=== PATIENT | female | born 1965 | race African-American/Black ===

== ENCOUNTER 2019-01-03 00:58 | Emergency (ER) | payer SELFPAY ==
[2019-01-03 02:09] LABS: Absolute Lymphocytes (CBC) 2.4 K/uL (0.7-4.9); Basophils % 0.8 % (0-1.3); Eosinophils % 0.1 % (0-4.4); Hematocrit 38.6 % (36.0-45.0); Lymphocytes % 21.9 % (15.3-44.8); Monocytes % 4.9 % (3.3-12.3); RBC Red Blood Cell Count 4.48 M/uL (3.86-4.86)
[2019-01-03 02:21] LABS: Albumin 3.7 g/dL (3.4-5.0); Bilirubin Direct 0.2 mg/dL (0-0.2); Bilirubin Total 0.6 mg/dL (0.2-1.0); Potassium 3.8 mmol/L (3.5-5.1); Protein, Total 8.6 g/dL (6.4-8.2)
[2019-01-03] MEDS ORDERED: ONDANSETRON 4 MG/2 ML VIAL ONE (02:53)
--- NOTE | 2019-01-03 05:31 | EDPHYS ---
Physician Documentation [facility] Name: Ning Kirk Age: 53 yrs Sex: Female : 1965 Arrival Date: 01/03/2019 Time: 01:00 Bed 13 Private MD: ED Physician Shoaib Berman AMBULANCE DRIVER PARAMEDIC: 01/03 01:27 LMP N/A - Post-menopause ak1 Historical: - Allergies: 01:27 tramadol; ak1 - Home Meds: 01:27 metformin 1,000 mg Oral tr24 1 tab once daily for Prevention of Type 2 Diabetes ak1 Mellitus [Active]; - PMHx: 01:27 Diabetes - NIDDM; ak1 - PSHx: 01:27 None; ak1 - Immunization history:: Adult Immunizations unknown. - Social history:: Smoking status: Patient/guardian denies using tobacco. - Ebola Screening: : No symptoms or risks identified at this time. Vital Signs: 01:26 BP 158 / 89; Pulse 69; Resp 18; Pulse Ox 100% ; ea 01:27 Weight 99.79 kg (R); Height 5 ft. 2 in. (157.48 cm) (R); Pain 0/10; ak1 03:45 BP 138 / 67; Pulse 64; Resp 18; Pulse Ox 98% ; ea 04:00 BP 130 / 68; Pulse 63; Resp 18; Pulse Ox 100% ; ea 05:00 BP 124 / 64; Pulse 61; Resp 18; Pulse Ox 98% on R/A; ea 05:35 BP 120 / 62; Pulse 60; Resp 18; Temp 97.2; Pulse Ox 98% ; ea 01:27 Body Mass Index 40.24 (99.79 kg, 157.48 cm) ak1 MDM: 01:38 Patient medically screened. 01/03 01:41 Order name: Basic Metabolic Panel 01/03 01:41 Order name: CBC with Diff; Complete Time: 02:53 01/03 01:41 Order name: Hepatic Function; Complete Time: 02:53 gs 01/03 01:41 Order name: Lipase; Complete Time: 02:53 01/03 01:42 Order name: Basic Metabolic Panel; Complete Time: 02:53 EDMS 01/03 01:41 Order name: IV Saline Lock; Complete Time: 01:54 gs 01/03 01:41 Order name: Labs collected and sent; Complete Time: 02:08 01/03 01:41 Order name: CT Stone Protocol Administered Medications: 01:50 Drug: NS 0.9% 1000 ml Route: IV; Rate: 1 bolus; Site: left antecubital; cc3 05:30 Follow up: Response: No adverse reaction; IV Status: Completed infusion; IV Intake: ea 1000ml 01:50 Drug: Zofran 4 mg Route: IVP; Site: left antecubital; ea 02:33 Follow up: Response: No adverse reaction; Nausea is decreased ea 02:42 Drug: Zofran 4 mg Route: IVP; Site: left antecubital; ea 03:45 Follow up: Response: No adverse reaction; Nausea is decreased ea 05:45 Drug: Phenergan 25 mg Route: IM; Site: right deltoid; ea 05:49 Follow up: Response: No adverse reaction; Medication administered at discharge. ea Disposition: 01/03/19 05:30 Discharged to Home. Impression: Vomiting, Dehydration. - Condition is Stable. - Discharge Instructions: Dehydration, Adult, Nausea and Vomiting, Adult. - Prescriptions for Zofran 4 mg Oral Tablet - take 1 tablet by ORAL route every 12 hours As needed; 10 tablet. - Medication Reconciliation Form, Thank You Letter, Antibiotic Education, Prescription Opioid Use form. - Follow up: Private Physician; When: 2 - 3 days; Reason: Re-evaluation by your physician. Signatures: Dispatcher [employer] EDMS Cony Marie RN RN ak1 Michelle Jacobson RN RN ea Starr, Gregory, MD MD gs Cordel, Charlene cc3 Corrections: (The following items were deleted from the chart) 05:57 05:30 01/03/2019 05:30 Discharged to Home. Impression: Vomiting; Dehydration. Condition ea is Stable. Forms are Medication Reconciliation Form, Thank You Letter, Antibiotic Education, Prescription Opioid Use. Follow up: Private Physician; When: 2 - 3 days; Reason: Re-evaluation by your physician.
--- NOTE | 2019-01-03 05:31 | ER ---
Nurse's Notes [facility] Name: Ning Kirk Age: 53 yrs Sex: Female : 1965 Arrival Date: 01/03/2019 Time: 01:00 Bed 13 Private MD: Diagnosis: Vomiting;Dehydration Presentation: 01/03 01:25 Presenting complaint: Patient states: vomiting X3 days. pt denies diarrhea. pt daughter ak1 stated pt has not been taking her metformin for "a while". Transition of care: patient was not received from another setting of care. Onset of symptoms is unknown. Risk Assessment: Do you want to hurt yourself or someone else? Patient reports no desire to harm self or others. Care prior to arrival: None. 01:25 Acuity: HERACLIO 3 ak1 01:25 Method Of Arrival: Ambulatory ak1 01:36 Initial Sepsis Screen: Does the patient meet any 2 criteria? No. Patient's initial ea sepsis screen is negative. Does the patient have a suspected source of infection? No. Patient's initial sepsis screen is negative. 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 - Social history:: Smoking status: Patient/guardian denies using tobacco. - Ebola Screening: : No symptoms or risks identified at this time. Screenin:27 Abuse screen: Denies threats or abuse. Denies injuries from another. Nutritional ak1 screening: No deficits noted. Tuberculosis screening: No symptoms or risk factors identified. Fall Risk None identified. Assessment: 01:25 General: Appears uncomfortable, Behavior is calm, cooperative, appropriate for age. ea Pain: Denies pain. Neuro: Level of Consciousness is awake, alert, obeys commands, Oriented to person, place, time, situation. Cardiovascular: Patient's skin is warm and dry. Respiratory: Airway is patent Respiratory effort is even, unlabored, Respiratory pattern is regular, symmetrical. GI: Abdomen is non-distended, Reports nausea, vomiting. Derm: Skin is pink, warm \\T\\ dry. 02:00 Reassessment: Patient and/or family updated on plan of care and expected duration. Pain ea level reassessed. Patient is alert, oriented x 3, equal unlabored respirations, skin warm/dry/pink. 03:00 Reassessment: Patient and/or family updated on plan of care and expected duration. Pain ea level reassessed. Patient is alert, oriented x 3, equal unlabored respirations, skin warm/dry/pink. 04:00 Reassessment: Patient and/or family updated on plan of care and expected duration. Pain ea level reassessed. Patient is alert, oriented x 3, equal unlabored respirations, skin warm/dry/pink. Patient states symptoms have improved. 05:14 Reassessment: Patient and/or family updated on plan of care and expected duration. Pain ea level reassessed. Patient is alert, oriented x 3, equal unlabored respirations, skin warm/dry/pink. Patient states feeling better. Patient states symptoms have improved. Vital Signs: 01:26 BP 158 / 89; Pulse 69; Resp 18; Pulse Ox 100% ; ea 01:27 Weight 99.79 kg (R); Height 5 ft. 2 in. (157.48 cm) (R); Pain 0/10; ak1 03:45 BP 138 / 67; Pulse 64; Resp 18; Pulse Ox 98% ; ea 04:00 BP 130 / 68; Pulse 63; Resp 18; Pulse Ox 100% ; ea 05:00 BP 124 / 64; Pulse 61; Resp 18; Pulse Ox 98% on R/A; ea 05:35 BP 120 / 62; Pulse 60; Resp 18; Temp 97.2; Pulse Ox 98% ; ea 01:27 Body Mass Index 40.24 (99.79 kg, 157.48 cm) ak1 ED Course: 01:00 Patient arrived in ED. am2 01:18 Michelle Jacobson, MARIOLA is Primary Nurse. ea 01:25 Shoaib Berman MD is Attending Physician. gs 01:26 Triage completed. ak1 01:27 Arm band placed on Patient placed in an exam room, on a stretcher, on pulse oximetry, ak1 Patient notified of wait time. 01:27 Patient has correct armband on for positive identification. Bed in low position. Call ak1 light in reach. Side rails up X 1. Adult w/ patient. Pulse ox on. NIBP on. 01:50 Inserted saline lock: 20 gauge in left antecubital area, using aseptic technique. Blood cc3 collected. 02:19 CT Stone Protocol In Process Unspecified. EDMS 05:47 No provider procedures requiring assistance completed. IV discontinued, intact, ea bleeding controlled, No redness/swelling at site. Pressure dressing applied. Administered Medications: 01:50 Drug: NS 0.9% 1000 ml Route: IV; Rate: 1 bolus; Site: left antecubital; cc3 05:30 Follow up: Response: No adverse reaction; IV Status: Completed infusion; IV Intake: ea 1000ml 01:50 Drug: Zofran 4 mg Route: IVP; Site: left antecubital; ea 02:33 Follow up: Response: No adverse reaction; Nausea is decreased ea 02:42 Drug: Zofran 4 mg Route: IVP; Site: left antecubital; ea 03:45 Follow up: Response: No adverse reaction; Nausea is decreased ea 05:45 Drug: Phenergan 25 mg Route: IM; Site: right deltoid; ea 05:49 Follow up: Response: No adverse reaction; Medication administered at discharge. ea Intake: 05:30 IV: 1000ml; Total: 1000ml. ea Outcome: 05:30 Discharge ordered by . 05:50 Discharged to home ambulatory, with family. ea 05:50 Condition: improved 05:50 Discharge instructions given to patient, Instructed on discharge instructions, follow up and referral plans. medication usage, Demonstrated understanding of instructions, follow-up care, medications, Prescriptions given X 1. 05:57 Patient left the ED. ea Signatures: Dispatcher [employer] EDCA Cony Marie RN RN [email or web address] Ria Alva Elena, RN RN ea Starr, Gregory, MD MD gs Cordel, Charlene cc3
[2019-01-03] MEDS ORDERED: PROMETHAZINE 25 MG/ML VIAL ONE (05:53)
--- NOTE | 2019-01-03 10:05 | RAD REPORT ---
EXAM DESCRIPTION: CT - Stone Protocol - 01/03/2019 2:35 am CLINICAL HISTORY: ABD PAIN COMPARISON: None. TECHNIQUE: CT ABDOMEN PELVIS WITHOUT IV CONTRAST on 01/03/2019 1:41 AM CDT This exam was performed according to our departmental dose-optimization program, which includes autom ated exposure control, adjustment of the mA and/or kV according to patient size and/or use of iterati ve reconstruction technique. FINDINGS: Lower lungs are clear. Abdomen: The liver is normal in appearance. There is no biliary dilatation. Gallbladder contains mult iple gallstones. The pancreas and spleen are normal in appearance. Adrenal glands are normal. Left ki dney contains several small simple cysts, in addition to a simple cyst in the lower pole of the right kidney. There is a punctate mid pole right renal calculus in the second punctate upper pole right re nal calculus. There is no hydronephrosis bilaterally. Abdominal aorta is normal in course and caliber without aneurysm. There is no free air. There is no r etroperitoneal adenopathy.There is a small fat-containing umbilical abdominal wall hernia. There is a small supraumbilical anterior abdominal wall hernia as well. Pelvis: There is no bowel obstruction. Urinary bladder is unremarkable. There is no free fluid. Uteru s is enlarged. There is a left ovarian cyst measuring 5.9 cm. Appendix is normal. Skeleton: There are no acute osseous findings. No suspicious bony lesions. IMPRESSION: Large left ovarian cyst. Recommend nonemergent ultrasound. Cholelithiasis and right nephrolithiasis. No acute inflammatory process. Electronically signed by: José Miguel Weldon MD 01/03/2019 2:29 AM CDT Due to temporary technical issues with the PACS/Fluency reporting system, reports are being signed by the in house radiologist as a courtesy to ensure prompt reporting. The interpreting radiologist is f ully responsible for the content of the report.
== END 2019-01-03 05:57 | disposition home or self-care (01) ==
LOC: ER 00:58
DX: R11.10 Vomiting, unspecified (principal); E86.0 Dehydration; E11.9 Type 2 diabetes mellitus without complications; Z79.84 Long term (current) use of oral hypoglycemic drugs
CPT/HCPCS: 36415; 74176; 76377; 80048; 80076; 83690; 85025; 96361; 96372; 96374; 99284; J2405; J2550

== ENCOUNTER 2020-04-30 12:37 | Inpatient (IN) | payer SELFPAY ==
[2020-04-30 13:08] LABS: Arterial Blood Carboxyhemoglob 1.5 % (0-1.5); Blood O2 Saturation 90.3 % (92-98.5)
[2020-04-30] MEDS ORDERED: NA CHLORIDE 0.9% 1,000 ML ONE (13:15)
[2020-04-30 13:18] LABS: Absolute Lymphocytes (CBC) 0.6 K/uL (0.7-4.9); Basophils % 0.4 % (0-1.3); Hematocrit 39.8 % (36.0-45.0); Lymphocytes % 4.3 % (15.3-44.8); MPV 9.6 fL (7.6-11.3); RBC Red Blood Cell Count 4.45 M/uL (3.86-4.86)
[2020-04-30 13:40] LABS: BUN Blood Urea Nitrogen 60 mg/dL (7-18); Bicarbonate 21 mmol/L (21-32); Potassium 4.8 mmol/L (3.5-5.1); Sodium Level 146 mmol/L (136-145)
[2020-04-30 13:42] LABS: Glucose Level 722 mg/dL (74-106)
--- NOTE | 2020-04-30 13:44 | RAD REPORT ---
EXAM DESCRIPTION: CT - Head C Spine Cap Wo Con - 04/30/2020 1:17 pm CLINICAL HISTORY: fall, head injury, back pain, abd pain, chest pain COMPARISON: No comparisons TECHNIQUE: Axial [address] head images were obtained. Axial [address] cervical spine images were obtain ed with sagittal and coronal reconstruction images reviewed. Axial 5 mm images of the chest, abdomen and pelvis were obtained. All CT scans are performed using dose optimization technique as appropriate and may include automated exposure control or mA/KV adjustment according to patient size. FINDINGS: No intracranial hemorrhage, mass or edema. No midline shift or abnormal fluid collection. Mastoid air cells and paranasal sinuses are clear. No skull fracture. Cervical bodies are normal in height and alignment. No fracture or acute bone finding.No disk space n arrowing.No prevertebral soft tissue thickening or paraspinal mass.Central canal detail is inherently limited on CT imaging. Peripheral ground-glass opacification is present in the right upper lobe with ground-glass and more c onsolidated airspace opacification seen in the left upper lobe. The upper lobe distribution is periph eral. There is extensive alveolar opacification in the bilateral lower lobes and the right middle lob e to a lesser degree. No pleural effusion. There is no pneumothorax. No mediastinal hematoma and th e aorta and pulmonary arteries are unremarkable. No chest will mass or abnormal axillary finding. No displaced rib fracture or other significant bony finding. CT abdomen and pelvis show no injury to solid abdominal viscera. Gallbladder is filled with multiple gallstones. No wall thickening seen. No biliary tree dilatation. No bowel injury or significant findi ng. No free air, free fluid or abnormal stranding. Very minimal umbilical fat only hernia seen. No ab dominal wall hematoma. No skeletal muscle injury or measurable edema or contusion in the subcutaneous fat. No urinary bladder abnormality. Uterus is lobulated and contains 2 fibroids in the anterior and right lateral mid to lower uterus. Klever th are approximately 4.5 cm in size. No right ovarian or right adnexal suspicious finding. Patient ross s a 5 centimeter cyst or low-density mass. This ovarian or paraovarian probable complex cyst has an a ttenuation value of 38 Hounsfield units. No significant bony finding. Degenerative changes are present. Lung parenchymal findings discussed with Ivan Page 1:35 p.m. IMPRESSION: No significant CT Head finding. No significant CT cervical spine finding. No acute traumatic injury to the chest. Extensive airspace and ground-glass opacities are present in the lung khan. In a diabetic patient this could be diffuse pulmonary edema or volume overload. Cayetano lam, in the current community environment, COVID-19 pneumonia should be considered and evaluated. No acute traumatic injury in the abdomen or pelvis. Patient has a complex 5 centimeter left ovarian o r paraovarian cystic mass that needs outpatient sonographic follow-up and ongoing monitoring of the m ass. Two large uterine fibroids.
[2020-04-30 13:58] LABS: Blood Morphology Comment NOTED (NOT SEEN); Burr Cells FEW; Platelet Estimate ADEQ; White Blood Cell Scan OK (OK)
[2020-04-30] MEDS ORDERED: INSULIN -REGULAR HUMAN 50 UNIT/0.5 ML ML ONE (14:09)
--- NOTE | 2020-04-30 14:12 | EDPHYS ---
Physician Documentation [facility] Name: Ning Kirk Age: 54 yrs Sex: Female : 1965 Arrival Date: 04/30/2020 Time: 12:39 Bed 7 Private MD: ED Physician Dm Garcia HPI: 04/30 14:05 This 54 yrs old Black Female presents to ER via EMS with complaints of High Blood Sugar.rn 14:05 The patient or guardian reports hyperglycemia. Onset: The symptoms/episode rn began/occurred at an unknown time. Associated signs and symptoms: Pertinent positives: weakness. Current symptoms: In the emergency department the patient's symptoms are unchanged from the initial presentation. The patient has experienced similar episodes in the past. Reports "doesn't take diabetes medication", for unknown time, family reports weakness and noticed changes 1 month ago or so, + generalized weakness, found on ground today presumably after a fall or syncope, patient does not recall. Reports head/back/stomach hurt her but unable to tell if acute pain or chronic. No fever. + cough. . Historical: - Allergies: 12:30 tramadol; rb1 - Home Meds: 12:30 metformin 1,000 mg Oral tr24 1 tab once daily for Prevention of Type 2 Diabetes rb1 Mellitus [Active]; - PMHx: 12:30 Diabetes - NIDDM; rb1 - PSHx: 12:30 None; rb1 - Immunization history:: Adult Immunizations unknown. - Social history:: Smoking status: Patient/guardian denies using. - Family history:: not pertinent. - Hospitalizations: : No recent hospitalization is reported. ROS: 14:05 Constitutional: Negative for fever, chills, and weight loss, Eyes: Negative for injury, rn pain, redness, and discharge, Cardiovascular: Negative for chest pain, palpitations, and edema, Respiratory: + cough, neg for sob Abdomen/GI: + abd pain, neg for nausea/vomiting MS/Extremity: Negative for injury and deformity, Skin: Negative for injury, rash, and discoloration, Neuro: Negative for headache, numbness, tingling, and seizure. Exam: 14:05 Constitutional: Overweight female, awake but slow to respond. Head/Face: rn Normocephalic, atraumatic. ENT: dry MM with cracked lips Cardiovascular: tachycardic, regular Respiratory: No increased work of breathing, no retractions or nasal flaring. Abdomen/GI: soft, mild left sided tenderness, no masses Skin: Warm, dry MS/ Extremity: Pulses equal, no cyanosis. Neurovascular intact. Neuro: Awake, somnolent but follows commands, moves all 4 extremities, responsive to painful stimuli in all extremities. Vital Signs: 12:30 BP 137 / 83; Pulse 116; Resp 18; Pulse Ox 96% ; Height 5 ft. 2 in. (157.48 cm); rb1 13:57 BP 121 / 69; Pulse 115; Resp 18; Pulse Ox 97% ; rb1 15:16 BP 105 / 69; Pulse 108; Resp 17; Pulse Ox 97% ; rb1 15:46 BP 115 / 78; Pulse 115; Resp 16; Pulse Ox 92% on R/A; mt 16:41 BP 90 / 62; Pulse 120; Resp 17; Pulse Ox 94% on 6 lpm NC; rb1 MDM: 12:39 Patient medically screened. rn 14:10 Differential diagnosis: DKA, hyperglycemia. Data reviewed: vital signs, nurses notes, fingernail sculptor test result(s), EKG, radiologic studies, CT scan, and as a result, I will admit patient. Counseling: I had a detailed discussion with the patient and/or guardian regarding: the historical points, exam findings, and any diagnostic results supporting the discharge/admit diagnosis, lab results, radiology results, the need for further work-up and treatment in the hospital. Response to treatment: the patient's symptoms have mildly improved after treatment, and as a result, I will admit patient. Admission orders: after a detailed discussion of the patient's condition and case, the admit orders are written by me. 04/30 12:40 Order name: glucometer results - FOR PT WITH NO ID; Complete Time: 13:53 mt 04/30 12:41 Order name: CBC with Diff; Complete Time: 13:59 rn 04/30 12:41 Order name: Basic Metabolic Panel; Complete Time: 13:53 rn 04/30 12:41 Order name: Ketone, Serum; Complete Time: 13:53 rn 04/30 12:41 Order name: ABG; Complete Time: 13:53 rn 04/30 12:41 Order name: CT Traumagram (Head C Spine CAP wo con); Complete Time: 13:53 rn 04/30 13:56 Order name: CBC Smear Scan; Complete Time: 13:59 EDMS 04/30 15:01 Order name: SARS-COV-2 RT PCR EDMS 04/30 15:32 Order name: Glucose, Ancillary Testing EDMS 04/30 16:44 Order name: Glucose, Ancillary Testing EDMS 04/30 12:41 Order name: IV Start; Complete Time: 12:54 rn 04/30 12:41 Order name: Glucose Level; Complete Time: 12:54 rn 04/30 12:41 Order name: EKG; Complete Time: 12:42 rn 04/30 12:41 Order name: EKG - Nurse/Tech; Complete Time: 12:54 rn Administered Medications: 13:05 Drug: NS 0.9% 1000 ml Route: IV; Rate: 1000 ml; Site: right antecubital; rb1 14:11 Follow up: IV Status: Completed infusion rb1 14:00 Drug: Insulin Regular Human 10 units {Co-Signature: aa5 (Elizabeth Harris RN).} Route: rb1 IVP; Site: right forearm; 15:20 Follow up: Response: No adverse reaction; Blood sugar is lowered rb1 14:00 Drug: Insulin Regular Human 10 units {Co-Signature: aa5 (Elizabeth Harris RN).} Route: rb1 Sub-Q; Site: right upper arm; 15:20 Follow up: Response: No adverse reaction; Blood sugar is lowered rb1 16:30 Drug: Insulin Drip - (Insulin Regular Human 100 units, NS 0.9% 100 ml) {Co-Signature: rb1 aa5 (Elizabeth Harris RN).} Route: IV; Rate: calculated rate; Site: right forearm; 17:42 Follow up: IV Status: Infusion continued upon admission rb1 Point of Care Testing: Blood Glucose: 15:19 Blood Glucose: 496 mg/dL; rb1 16:29 Blood Glucose: 479 mg/dL; rb1 Ranges: Critical Glucose Levels:Adult <50 mg/dl or >400 mg/dl <40 mg/dl or >180 mg/dl Disposition: 04/30/20 14:11 Hospitalization ordered by Eldon Garcia for Inpatient Admission. Preliminary diagnosis are Hyperglycemia, unspecified, Acute kidney failure, Weakness. - Bed requested for Intensive Care Unit. - Status is Inpatient Admission. iw - Condition is Stable. - Problem is an ongoing problem. - Symptoms have improved. Signatures: Dispatcher [employer] EDSC Mamta Aden RN RN dw Tahira Garcia RN RN iw Dm Garcia MD MD rn Barber, Rebecca, RN RN rb1 Elizabeth Harris RN aa5 Corrections: (The following items were deleted from the chart) 15:01 13:55 CORONAVIRUS+MR.LAB.BRZ ordered. [facility] 16:28 14:11 Hospitalization Ordered by Eldon Garcia MD for Inpatient Admission. Preliminary diagnosis is Hyperglycemia, unspecified; Acute kidney failure; Weakness. Bed requested for Telemetry/MedSurg (Inpatient). Status is Inpatient Admission. Condition is Stable. Problem is an ongoing problem. Symptoms have improved. rn 17:37 16:28 04/30/2020 14:11 Hospitalization Ordered by Eldon Garcia MD for Inpatient iw Admission. Preliminary diagnosis is Hyperglycemia, unspecified; Acute kidney failure; Weakness. Bed requested for Intensive Care Unit. Status is Inpatient Admission. Condition is Stable. Problem is an ongoing problem. Symptoms have improved. dw
--- NOTE | 2020-04-30 14:12 | ER ---
Nurse's Notes [facility] Name: Ning Kirk Age: 54 yrs Sex: Female : 1965 Arrival Date: 04/30/2020 Time: 12:39 Bed 7 Private MD: Diagnosis: Hyperglycemia, unspecified;Acute kidney failure;Weakness Presentation: 04/30 12:30 Coronavirus screen: Client denies travel out of the [place] in the last 14 days. Ebola rb1 Screen: Patient denies travel to an Ebola-affected area in the 21 days before illness onset. Initial Sepsis Screen: Does the patient meet any 2 criteria? No. Patient's initial sepsis screen is negative. Risk Assessment: Do you want to hurt yourself or someone else? Patient reports no desire to harm self or others. Onset of symptoms was April 30, 2020. 12:30 Method Of Arrival: EMS: [facility] rb1 12:30 Acuity: HERACLIO 3 rb1 13:00 Chief complaint: EMS states: Pt. fell and hit her head, she was found in the bathroom rb1 by the family. Has a history of diabetes but refuses to take her medications. IV 20 G R FA. Triage Assessment: 12:30 General: Appears in no apparent distress. Behavior is drowsy. General: Pt. daughter rb1 reports that the pt. behaviors have been abnormal for the past week. . Pain: Complains of pain in abdomen Unable to use pain scale. Patient is disoriented. Neuro: Level of Consciousness is lethargic, Oriented to person. Cardiovascular: Capillary refill < 3 seconds. Respiratory: Airway is patent Respiratory effort is even, unlabored, Respiratory pattern is regular, symmetrical. GI: Parent/caregiver reports the patient having diarrhea, nausea. : No signs and/or symptoms were reported regarding the genitourinary system. Musculoskeletal: Range of motion: intact in all extremities. Historical: - Allergies: 12:30 tramadol; rb1 - Home Meds: 12:30 metformin 1,000 mg Oral tr24 1 tab once daily for Prevention of Type 2 Diabetes rb1 Mellitus [Active]; - PMHx: 12:30 Diabetes - NIDDM; rb1 - PSHx: 12:30 None; rb1 - Immunization history:: Adult Immunizations unknown. - Social history:: Smoking status: Patient/guardian denies using. - Family history:: not pertinent. - Hospitalizations: : No recent hospitalization is reported. Screenin:30 Abuse screen: Denies threats or abuse. Nutritional screening: No deficits noted. rb1 Tuberculosis screening: No symptoms or risk factors identified. Fall Risk Fall in past 12 months (25 points). Secondary diagnosis (15 points) Altered Mental Status. IV access (20 points). Ambulatory Aid- None/Bed Rest/Nurse Assist (0 pts). Gait- Normal/Bed Rest/Wheelchair (0 pts) Mental Status- Overestimates/Forgets Limitations (15 pts.). Total Mora Fall Scale indicates High Risk Score (45 or more points). Fall prevention measures have been instituted. Side Rails Up X 2 Placed Close to Nursing Station 1:1 Attendant Assigned Frequent Obs/Assessments Occuring Family Present and informed to notify staff if the need to leave the bedside As available patient and family educated on Fall Prevention Program and Strategies. Assessment: 12:39 General: See triage assessment. rb1 13:30 Reassessment: Patient appears in no apparent distress at this time. No changes from rb1 previously documented assessment. 14:30 Reassessment: Patient appears in no apparent distress at this time. Patient and/or rb1 family updated on plan of care and expected duration. Pain level reassessed. Patient is alert, oriented x 3, equal unlabored respirations, skin warm/dry/pink. Patient denies pain at this time. 15:30 Reassessment: Patient appears in no apparent distress at this time. No changes from rb1 previously documented assessment. 16:20 Reassessment: Pt. resting with eyes closed, respirations even, unlabored. rb1 17:14 Reassessment: Patient appears in no apparent distress at this time. Patient and/or rb1 family updated on plan of care and expected duration. Pain level reassessed. Patient is alert, oriented x 3, equal unlabored respirations, skin warm/dry/pink. Vital Signs: 12:30 BP 137 / 83; Pulse 116; Resp 18; Pulse Ox 96% ; Height 5 ft. 2 in. (157.48 cm); rb1 13:57 BP 121 / 69; Pulse 115; Resp 18; Pulse Ox 97% ; rb1 15:16 BP 105 / 69; Pulse 108; Resp 17; Pulse Ox 97% ; rb1 15:46 BP 115 / 78; Pulse 115; Resp 16; Pulse Ox 92% on R/A; mt 16:41 BP 90 / 62; Pulse 120; Resp 17; Pulse Ox 94% on 6 lpm NC; rb1 ED Course: 12:30 Maintain EMS IV. Dressing intact. Site clean \T\ dry. Gauge \T\ site: 20 g R FA. rb 1 12:30 Arm band placed on right wrist. rb1 12:30 Patient has correct armband on for positive identification. Bed in low position. Call rb1 light in reach. Side rails up X2. sheep or calf grader on. Pulse ox on. NIBP on. Warm blanket given. 12:39 Patient arrived in ED. rn 12:39 Dm Garcia MD is Attending Physician. rn 12:54 Ellen Garcia RN is Primary Nurse. rb1 13:05 Inserted saline lock: 20 gauge in right antecubital area, using aseptic technique. rb1 Blood collected. 13:18 CT Traumagram (Head C Spine CAP wo con) In Process Unspecified. EDMS 13:21 Triage completed. rb1 14:11 Eldon Gacria MD is Hospitalizing Provider. rn 17:05 Report given to Gave report to MARIOLA Davis. rb1 17:37 No provider procedures requiring assistance completed. Patient admitted, IV remains in rb1 place. Administered Medications: 13:05 Drug: NS 0.9% 1000 ml Route: IV; Rate: 1000 ml; Site: right antecubital; rb1 14:11 Follow up: IV Status: Completed infusion rb1 14:00 Drug: Insulin Regular Human 10 units {Co-Signature: aa5 (Elizabeth Harris RN).} Route: rb1 IVP; Site: right forearm; 15:20 Follow up: Response: No adverse reaction; Blood sugar is lowered rb1 14:00 Drug: Insulin Regular Human 10 units {Co-Signature: aa5 (Elizabeth Harris RN).} Route: rb1 Sub-Q; Site: right upper arm; 15:20 Follow up: Response: No adverse reaction; Blood sugar is lowered rb1 16:30 Drug: Insulin Drip - (Insulin Regular Human 100 units, NS 0.9% 100 ml) {Co-Signature: rb1 aa5 (Elizabeth Harris RN).} Route: IV; Rate: calculated rate; Site: right forearm; 17:42 Follow up: IV Status: Infusion continued upon admission rb1 Point of Care Testing: Blood Glucose: 15:19 Blood Glucose: 496 mg/dL; rb1 16:29 Blood Glucose: 479 mg/dL; rb1 Ranges: Outcome: 14:11 Decision to Hospitalize by Provider. rn 17:37 Patient left the ED. iw 17:37 Admitted to ICU accompanied by nurse, via stretcher, room 3, with oxygen, with chart, rb1 Report called to Gave report to MARIOLA Davis in the ED before the pt. went to the floor. Information from the SBAR was given. Informed Ryan that the insulin drip was started at 1630, and a blood sugar is due at 1730. Verbalized understanding. All questions asked and answered. 17:37 Condition: stable 17:37 Instructed on the need for admit. Signatures: Dispatcher [employer] Tahira Barron, Dm Kwok RN, MD MD rn Barber, Rebecca, RN RN rb1 Dg Revillo soraida Harris RN aa5
[2020-04-30] MEDS ORDERED: GLUCAGON 1 MG/VIAL IM PRN ×2 (16:02→23:12)
[2020-04-30] MEDS ORDERED: D50W 25 GM/50 ML SYRINGE/VIAL IV PRN ×2 (16:02→23:12)
[2020-04-30] MEDS ORDERED: INSULIN -REGULAR HUMAN 100 UNIT in NA CHLORIDE 0.9% 100 ML IV SCH ×2 (16:15→18:17)
--- NOTE | 2020-04-30 16:19 | P.HP ---
Certification for Inpatient Patient admitted to: Inpatient With expected LOS: >2 Midnights Practitioner: I am a practitioner with admitting privileges, knowledge of patient current condition, hospital course, and medical plan of care. Services: Services provided to patient in accordance with Admission requirements found in Title 42 Section 412.3 of the Code of Federal Regulations Patient History Date of Service: 04/30/20 Reason for admission: AMS, Hyperglycemia History of Present Illness: 54yo female, PMH: DM2, unable to obtain from patient due to AMS. Unable to reach family at this time. History obtained from ED physician and somewhat from patient. She reportedly fell at home and EMS was called. Family reported first noticing patient with some weakness ~1 month ago. Patient only oriented to self at this time, reports head and abdominal pain. States she remembers the fall but unable to provide any details when further questioned. She reports h/o diabetes and has not been taking her medications but unable to elaborate and denies any other past medical history. ROS unable to be obtained. In the ED, she was noted SpO2 92-96% on room air, tachycardic 100-120s, BP: 13 7/83. She reportedly received 2 L bolus by EMS, and 1 L bolus in the ED. She underwent lazo CT scan due to her fall multiple pain complaints. Findings of extensive airspace and ground-glass opacities in bilateral lung field concerning for COVID-19 pneumonia. In no acute traumatic injury in the abdomen or pelvis. No intracranial hemorrhage, mass, or edema. No skull fracture. No acute findings of the C-spine. Labwork notable for leukocytosis (13.7), anion gap mixed acidosis with metabolic alkalosis, acute kidney injury (1.72), glucose: 722 She was given 10 units of IV insulin and 10 units of subcutaneous insulin. Allergies tramadol Allergy (Unknown, Verified 04/30/20 15:51) Itching/Hives/Rash - Past Medical/Surgical History Past Medical History: Unable to obtain Past Surgical History: Unable to obtain - Family History Family History: Reviewed- Non-Contributory (Unable to be obtained) - Social History Smoking Status: Unknown if ever smoked Review of Systems is unable to be obtained Physical Examination - Physical Exam General: In no apparent distress, Oriented x1, Confused HEENT: Other (Dry mucous membranes), Sclerae nonicteric Neck: JVD not distended Respiratory: Diminished (At bases bilaterally) Cardiovascular: No edema, Regular rate/rhythm (Tachycardic: 90s-100) Gastrointestinal: Soft and benign, Non-distended, Tenderness (Diffuse, most severe in the left side) Musculoskeletal: No erythema Integumentary: No rashes Neurological: Other (Unable fully follow commands for accurate exam) - Studies Laboratory Data (last 24 hrs) 04/30/20 13:05: Sodium 146 H, Potassium 4.8, BUN 60 H, Creatinine 1.72 H, Glucose 722 H* 04/30/20 13:05: WBC 13.7 H, Hgb 12.3, Hct 39.8, Plt Count 214 Assessment and Plan - Advance Directives Does patient have a Living Will: No Does patient have a Durable POA for Healthcare: No Physician Review Additional Text: Hyperglycemia Altered mental status COVID-19 pneumonia DM2 -unable to obtain PMH from patient, will reach out to family to fill in blanks -patient is reportedly noncompliant and was upset family called EMS -labs concerning for hyperosmolar hyperglycemia syndrome instead of DKA, +anion gap -K: 4.8, start insulin drip, IV fluids with KCl -admit to ICU -BMP q.4 hr -monitor I/Os carefully -PHILOMENA likely prerenal -AMS likely due to HHS -CT concerning for COVID-19 pneumonia, found to be COVID positive today -will discuss with family -consulted Pulm - Dr. Marx, no hypoxia on exam, +cough, pt unable to give a good history Dispo: anticipate hospitalization for several days Time Spent Managing Pts Care (In Minutes): 60
[2020-04-30] MEDS ORDERED: GLUCAGON 1 MG/VIAL ONE (18:57)
[2020-04-30 19:08] LABS: Magnesium 3.5 mg/dL (1.8-2.4); Phosphorus 2.7 mg/dL (2.5-4.9); Potassium 3.4 mmol/L (3.5-5.1)
[2020-04-30] MEDS: NACHLORIDE 0.45% 1,000 ML with POTASSIUM CL 20 MEQ IV SCH ×4 (19:18→23:03)
[2020-04-30] MEDS ORDERED: NACHLORIDE 0.45% 1,000 ML IV ONE (19:25)
[2020-04-30] MEDS ORDERED: KCL 20 MEQ/100 mL IVPB 20 MEQ/100 ML BAG IV ONE (19:25)
[2020-04-30] MEDS ORDERED: LORazepam 2 MG/ML VIAL IV ONE (19:44)
[2020-04-30] MEDS: KCL 20 MEQ/100 mL IVPB 20 MEQ/100 ML BAG IV SCH ×2 (19:49→22:43)
[2020-04-30] MEDS ORDERED: ENOXAPARIN 30 MG/0.3 ML SQ SCH ×2 (20:00→21:00)
[2020-04-30] MEDS ORDERED: ENOXAPARIN 40 MG/0.4 ML SQ SCH (21:00)
[2020-04-30 22:15] LABS: Urine Appearance CLEAR; Urine Blood NEGATIVE (NEG); Urine Color YELLOW; Urine Glucose 3+ (NEG); Urine Protein NEGATIVE (NEG); Urine Specific Gravity >=1.030 (1.005-1.030)
[2020-04-30 22:26] LABS: Urine Microscopic Reflex NO UMIC
[2020-04-30 22:30] LABS: Urine Bilirubin NEGATIVE (NEG)
[2020-04-30 22:57] LABS: Potassium 4.2 mmol/L (3.5-5.1)
[2020-04-30] MEDS ORDERED: HEPARIN/D5W 25,000 UNIT/500 ML BAG IV SCH (23:00)
[2020-04-30 23:42] LABS: Basophils % 0.2 % (0-1.3); Hematocrit 36.9 % (36.0-45.0); Lymphocytes % 5.1 % (15.3-44.8); MPV 9.3 fL (7.6-11.3); RBC Red Blood Cell Count 4.25 M/uL (3.86-4.86)
[2020-04-30 23:45] LABS: Protime INR 1.46
[2020-04-30] MEDS ORDERED: NACHLORIDE 0.45% 1,000 ML IV SCH (23:45)
[2020-04-30] MEDS ORDERED: HEPARIN 5000 UNIT/ML 1 ML VIAL ONE (23:57)
[2020-05-01] MEDS: INSULIN -REGULAR HUMAN 50 UNIT/0.5 ML ML SQ SCH ×8 (00:20→20:29)
[2020-05-01 04:18] LABS: Absolute Lymphocytes (CBC) 1.2 K/uL (0.7-4.9); Basophils % 0.3 % (0-1.3); Hematocrit 36.2 % (36.0-45.0); Lymphocytes % 6.4 % (15.3-44.8); MPV 9.4 fL (7.6-11.3); RBC Red Blood Cell Count 4.17 M/uL (3.86-4.86)
[2020-05-01 04:33] LABS: Albumin 1.8 g/dL (3.4-5.0); Bilirubin Total 0.3 mg/dL (0.2-1.0); Magnesium 3.1 mg/dL (1.8-2.4); Phosphorus 2.7 mg/dL (2.5-4.9); Protein, Total 7.3 g/dL (6.4-8.2)
[2020-05-01] MEDS ORDERED: INSULIN -REGULAR HUMAN 50 UNIT/0.5 ML ML SQ SCH (07:30)
[2020-05-01] MEDS: ENOXAPARIN 100 MG/ML SYR SQ SCH ×2 (08:40→20:30)
--- NOTE | 2020-05-01 08:44 | P.PN ---
Subjective Date of Service: 05/01/20 Chief Complaint: AMS, Hyperglycemia Subjective: No new changes (slightly more awake/alert this morning, still with confusion; reporting body aches, difficult to obtain full ROS) Physical Examination - Vital Signs Temperature: 98.6 F Blood Pressure: 102/80 Pulse: 116 Respirations: 20 Pulse Ox (%): 89 - Physical Exam General: In no apparent distress, Oriented x1 HEENT: Other (dry mucous membranes) Neck: Supple, No LAD Respiratory: Other (non-labored on 2L NC, +dry cough) Cardiovascular: No edema, Regular rate/rhythm (tachycardic 100-110s) Gastrointestinal: Non-distended, Tenderness (mild diffuse) Musculoskeletal: Tenderness (b/l lower extremities on shins, no ecchymosis/lesions) Neurological: Abnormal affect Urinary: Olson catheter - Studies Laboratory Data (last 24 hrs) 04/30/20 13:05: Sodium 146 H, Potassium 4.8, BUN 60 H, Creatinine 1.72 H, Glucose 722 H* 04/30/20 13:05: WBC 13.7 H, Hgb 12.3, Hct 39.8, Plt Count 214 Assessment & Plan Physician Review Additional Text: Hyperglycemia, hyperosmolar hyperglycemia syndrome DM2 Hypernatremia COVID-19 Pneumonia Pulmonary Embolus PHILOMENA Altered mental status HHS DM2 -patient is reportedly noncompliant and was upset family called EMS, family reported 2 day h/o cough prior to presentation -patient fell in bathroom and found by family after hearing loud thud -on admission, pt started on insulin drip, IVF with KCL no on subq insulin; Serum Osm: 360 -monitor I/Os carefully Hypernatremia -likely due to hypovolemia / correction of hyperglycemia, received 3L NS from EMS and ED -was on 1/2NS+KCL on admission, switched to 1/2NS overnight -recheck BMP in a few hours -if persistent, may need to switch to d5, hesistant given hyperglycemia; may consult nephrology COVID-19 Pneumonia Pulmonary Embolus -desat to 88% on RA when coughing, confortable on 2LNC -CRP downtrending -on therapeutic lovenox -Pulm - Dr. Marx consulted PHILOMENA -likely prerenal, improved with IVF hydration Altered mental status -likely due to HHS, COVID -CT brain negative, consider MRI if no improvement Code: DNR per Dispo: anticipate hospitalization for several days family updated Time Spent Managing Pts Care (In Minutes): 35
--- NOTE | 2020-05-01 09:23 | RAD REPORT ---
EXAM DESCRIPTION: US - Extrem Venous W Compress Aramis - 05/01/2020 9:08 am CLINICAL HISTORY: R/O DVTbilateral leg swelling, elevated D-dimer COMPARISON: None. TECHNIQUE: Real-time sonographic evaluation of the bilateral lower extremity common femoral, superfi cial femoral, popliteal and posterior tibial veins was performed. FINDINGS: Normal compressibility, flow augmentation, phasic flow and spontaneous flow are identified in the left and right lower extremity common femoral, superficial femoral, popliteal and posterior t ibial veins. No intraluminal filling defects seen. IMPRESSION: No DVT in either lower extremity.
--- NOTE | 2020-05-01 10:49 | RAD REPORT ---
EXAM DESCRIPTION: CT - Chest For Pe Angio - 04/30/2020 9:48 pm CLINICAL HISTORY: R/O PE elev. DDIMER COMPARISON: None. TECHNIQUE: CT CHEST ANGIOGRAPHY WITH IV CONTRAST on 04/30/2020 8:25 PM CDT. MIPS reconstructions wer e generated. This exam was performed according to our departmental dose-optimization program, which includes autom ated exposure control, adjustment of the mA and/or kV according to patient size and/or use of iterati ve reconstruction technique. MIP images were generated. FINDINGS: Thoracic aorta is normal in course and caliber without aneurysm or dissection. There is a filling defect within the distal right pulmonary artery extending into the right upper lobe branches as well as into the interlobar pulmonary artery. The heart is normal in size. There is no pericardial effusion. Intrathoracic lymph nodes are not enla rged. There is no pleural effusion, pleural thickening or pneumothorax. Central airways are patent. There a re extensive groundglass opacities mostly in the periphery of both lungs, with a lower lobe predomina nce. There are no acute abnormalities within the limited images of the upper abdomen. There are no acute osseous findings. No suspicious bony lesions. IMPRESSION: Proximal right sided pulmonary embolus with no evidence of right heart strain. Extensive bilateral groundglass opacities. Commonly reported imaging features of viral pneumonia are present. Other processes such as influenza pneumonia and organizing pneumonia, as can be seen with dr ug toxicity and connective tissue disease, can cause a similar imaging pattern. PneTyp Reference: https://pubs.rsna.org/doi/full/[email or web address]/[email or web address] Electronically signed by: José Miguel Weldon MD 04/30/2020 10:19 PM CDT Due to temporary technical issues with the PACS/Fluency reporting system, reports are being signed by the in house radiologist without review as a courtesy to ensure prompt reporting. The interpreting r adiologist is fully responsible for the content of the report.
[2020-05-01] MEDS ORDERED: GLUCAGON 1 MG/VIAL IM PRN ×3 (11:36→17:23)
[2020-05-01] MEDS ORDERED: D50W 25 GM/50 ML SYRINGE/VIAL IV PRN ×2 (11:36→17:06)
[2020-05-01] MEDS: D5W 1,000 ML IV SCH ×2 (12:00→13:00)
--- NOTE | 2020-05-01 12:49 | CON ---
Reason For Consultation: Elevated BUN and creatinine, hypernatremia, electrolyte imbalance. History Of Present Illness: All the information has been obtained from the record as the patient has altered mental status. This is a 54-year-old black female with significant past medical history of hypertension and diabetes. The patient came to the hospital, was admitted on the because of shortness of breath and altered mental status and abdominal pain with diarrhea and nausea for almost a week. Upon arrival to the hospital, the patient was hypoxemic and tachycardic. The patient received IV fluid as resuscitation and the patient undergo CT with contrast. Primary workup show she has PE, she has COVID pneumonia, and she has acute kidney injury with creatinine 1.7 and nonacidotic hyperglycemia. The patient was started on insulin drip and IV hydration. Kidney function has been improved and her hyperglycemia controlled. The patient was switched from insulin drip to sliding scale. Because of the persistent hypernatremia, we have been consulted. The patient started p.o. intake as liquid diet and she has tolerated very well. The patient still has altered mental status. Past Medical History: 1. Hypertension. 2. Diabetes. Past Surgical History: None obtainable. Family History: None obtainable. Social History: None obtainable. Review of Systems: None obtainable. Allergies: TO TRAMADOL. Home Medication: None obtainable. Physical Examination: General: When I saw the patient, the patient follow simple command, confused. Vital Signs: Blood pressure 106/63, pulse 120, afebrile. Chest: Faint rales on the left base. Heart: S1, S2. Regular. Tachycardic. Abdomen: Soft. Positive tenderness. No guarding or rebound. Extremities: No edema. Neuro: Confused. Moving 4 extremities without any focality. Laboratory Data: Labs upon admission; WBC 13.7, H and H are 12.3/39.8, platelets 214. Sodium 146, potassium 4.8, bicarb 21, BUN 60, creatinine 1.7, glucose 722, calcium 8.6. TSH still pending. Latest lab data; sodium 155, potassium 4, chloride 120 trending up, bicarb 27, BUN 45, creatinine down to 1, GFR of 65, glucose under 300, calcium 8.4, phosphorous 2.7, magnesium 3.1, alkaline phosphatase 123. C-reactive protein 181. AST and ALT within normal limit. Triglycerides 228. Urinalysis; specific gravity above 1.030, ketone was negative. COVID positive. CT chest was positive for PE and pneumonia. CT abdomen and pelvis showed multiple gallstones, no cholecystitis. Current Medications: The patient is on include Lovenox therapeutic, lorazepam, and insulin. Assessment And Plan: 1. Acute kidney injury secondary to prerenal. Obstructive uropathy has been ruled out as the CT abdomen and pelvis were negative for any hydronephrosis. Kidney function has been normalized. I am going to send for protein creatinine for staging. Mostly, the patient exposed to contrast and look to me still on the dry side. I am going to continue hydration. 2. Hypernatremia, mostly secondary to prerenal, secondary to dehydration, superimposed with glucose diuresis secondary to uncontrolled diabetes 1. I am going to go ahead and bolus the patient with D5 one L and we will give 10 units of regular insulin after that to avoid any further hyperglycemia. I going to go ahead and send for urine electrolyte and urinalysis and repeat chemistry after this bolus and we will follow up. We will start the patient on half-normal saline at 75 per hour and we will follow up electrolyte closely. 3. Hyperchloremic contraction alkalosis secondary to depletional, secondary to glucose diuresis. As above, the patient is going to be started on half normal and we will follow up. 4. Colitis. The patient has diarrhea as outpatient. The patient has abdominal pain. We will start the patient on Flagyl. 5. Pulmonary embolism as by primary. 6. Diabetes, uncontrolled. We will adjust insulin sliding scale to aggressive. I am going to start the patient on Lantus. Thank you Dr. Garcia for allowing us to participate in the care of your patient. Time spent Corordent the care discussing the case with the patient Family member (face to face) and staff member / other client service consultant and placing order 65 min TAPAN/TAMANNA Voice ID: [id number] Report ID: [id number] JAY
[2020-05-01] MEDS: NACHLORIDE 0.45% 1,000 ML IV SCH ×2 (13:00→20:29)
--- NOTE | 2020-05-01 13:29 | P.CNS ---
Date of Consult: 05/01/20 (Telephone visit) Chief Complaint: AMS, Hyperglycemia History of Present Illness: PT is 54 yrs of age AW hypergycemia, COVID pos, Acute lung injury and PE> Exp to COVID pos. Falling at home.Weakness a month ago Pt is diorientated. Hx of diabete non compliant Allergies tramadol Allergy (Unknown, Verified 04/30/20 15:51) Itching/Hives/Rash Home Medications: NK [No Home Meds] 05/01/20 Physical Examination Temp Pulse Resp BP Pulse Ox 99.3 F 109 H 21 H 93/62 92 05/01/20 12:00 05/01/20 13:00 05/01/20 13:00 05/01/20 13:00 05/01/20 13:00 General: Delirious Laboratory Data (last 24 hrs) 04/30/20 13:05: Sodium 146 H, Potassium 4.8, BUN 60 H, Creatinine 1.72 H, Glucose 722 H* 04/30/20 13:05: WBC 13.7 H, Hgb 12.3, Hct 39.8, Plt Count 214 - Problems (1) Pulmonary embolism associated with COVID-19 Current Visit: Yes Status: Acute Plan: AW AMS, hyperglycemia and hypernatremia. Pos for PE. Sat satisfactory. CT scan shows acute lung injury. irvin moore. D/C 1/2 NSAL. Repeat chemistries. Avoid steroids Renal failure Oxygenation satisfactory.
[2020-05-01 14:03] LABS: Magnesium 2.8 mg/dL (1.8-2.4); Potassium 3.2 mmol/L (3.5-5.1); Thyroid Stimulating Hormone 0.016 uIU/mL (0.360-3.740); Uric Acid 10.1 mg/dL (2.6-6.0)
[2020-05-01] MEDS ORDERED: INSULIN -REGULAR HUMAN 50 UNIT/0.5 ML ML IV ONE (15:20)
[2020-05-01] MEDS: KCL 20 MEQ/100 mL IVPB 20 MEQ/100 ML BAG IV SCH ×2 (16:00→17:55)
[2020-05-01] MEDS: METRONIDAZOLE 500mg IVPB 500 MG/100 ML BAG IV SCH (17:00)
[2020-05-01] MEDS ORDERED: INSULIN GLARGINE 100 UNITS/ML SQ SCH (17:00)
[2020-05-01 20:16] LABS: Magnesium 2.7 mg/dL (1.8-2.4); Phosphorus 1.3 mg/dL (2.5-4.9); Potassium 3.8 mmol/L (3.5-5.1)
[2020-05-01] MEDS ORDERED: POTASSIUM PHOS IN 0.9 % NACL 15 MMOL/250 ML BAG IV ONE (20:22)
[2020-05-02] MEDS: METRONIDAZOLE 500mg IVPB 500 MG/100 ML BAG IV SCH ×2 (00:31→08:24)
[2020-05-02 05:34] LABS: Absolute Lymphocytes (CBC) 1.3 K/uL (0.7-4.9); Basophils % 0.7 % (0-1.3); Lymphocytes % 11.2 % (15.3-44.8); MPV 9.2 fL (7.6-11.3); RBC Red Blood Cell Count 3.67 M/uL (3.86-4.86)
[2020-05-02 05:55] LABS: Albumin 1.6 g/dL (3.4-5.0); BUN Blood Urea Nitrogen 22 mg/dL (7-18); Bicarbonate 23 mmol/L (21-32); Glucose Level 149 mg/dL (74-106); Magnesium 2.3 mg/dL (1.8-2.4); Phosphorus 2.4 mg/dL (2.5-4.9); Potassium 3.9 mmol/L (3.5-5.1); Sodium Level 144 mmol/L (136-145)
[2020-05-02] MEDS ORDERED: POTASSIUM PHOS IN 0.9 % NACL 15 MMOL/250 ML BAG IV ONE (06:23)
--- NOTE | 2020-05-02 07:09 | EKG ---
Test Date: 2020-04-30 Test Time: 12:45:23 Manager Insurance: [employer] MEASUREMENT RESULTS: Intervals: Rate: 120 KS: 122 QRSD: 80 QT: 330 QTc: 466 [place]: P: 49 KS: 122 QRS: 0 T: 68 INTERPRETIVE STATEMENTS: Sinus tachycardia Cannot rule out Anterior infarct, age undetermined Abnormal ECG Compared to ECG 11/13/2001 10:08:00 Myocardial infarct finding now present Sinus rhythm no longer present Electronically Signed On 05-02-20 07:04:17 CDT by Ambrocio Jiménez
[2020-05-02] MEDS: NACHLORIDE 0.45% 1,000 ML IV SCH ×3 (08:00→20:27)
[2020-05-02] MEDS: INSULIN -REGULAR HUMAN 50 UNIT/0.5 ML ML SQ SCH ×4 (08:23→20:27)
[2020-05-02] MEDS: ENOXAPARIN 100 MG/ML SYR SQ SCH (08:24)
--- NOTE | 2020-05-02 08:28 | P.PN ---
Subjective Date of Service: 05/02/20 Chief Complaint: AMS, Hyperglycemia Subjective: Improving (Patient is doing better no new complaints) Physical Examination - Vital Signs Temperature: 98.5 F Blood Pressure: 113/70 Pulse: 97 Respirations: 21 Pulse Ox (%): 91 Assessment & Plan - Problems (Diagnosis) (1) Pulmonary embolism associated with COVID-19 Current Visit: Yes Status: Acute Plan: Improving change to p.o. Eliquis (2) Hypernatremia Current Visit: Yes Status: Acute Plan: Hypernatremia not corrected renal function is now normal Dc IV fluids Dc Olson catheter delayed possible discharge (3) Hyperglycemia Current Visit: Yes Status: Acute Plan: Check hemoglobin A1c reconciled home medications I have increased her insulin she is probably going to need home insulin
[2020-05-02] MEDS: APIXABAN 5 MG TABLET PO SCH ×2 (08:30→20:27)
[2020-05-02] MEDS: INSULIN GLARGINE 100 UNITS/ML SQ SCH ×2 (08:35→20:28)
--- NOTE | 2020-05-02 08:43 | P.PN ---
Subjective Date of Service: 05/07/20 Chief Complaint: Lopez virus pneumonia Subjective: Improving (Patient is doing better and there is no history of diarrhea on nasal cannula oxygen needed function is now normal hyponatremia corrected) Physical Examination - Vital Signs Temperature: 98.5 F Blood Pressure: 113/70 Pulse: 97 Respirations: 21 Pulse Ox (%): 91 Assessment & Plan - Problems (Diagnosis) (1) Pulmonary embolism associated with COVID-19 Current Visit: Yes Status: Acute Plan: AW AMS, hyperglycemia and hypernatremia. Pos for PE. Sat satisfactory. CT scan shows acute lung injury. irvin moore. D/C 07/20 NSAL. Repeat chemistries. Avoid steroids Renal failure Oxygenation satisfactory.
[2020-05-02] MEDS ORDERED: PANTOPRAZOLE 40 MG INJ IVP SCH (09:00)
--- NOTE | 2020-05-02 09:15 | P.PN ---
Subjective Date of Service: 05/02/20 Chief Complaint: COVID pneumonia, Hyperglycemia Subjective: Improving (More alert and oriented this morning. Feeling short of breath, reports no abdominal pain , continues left lower anterior wilson pain/tenderness) Review of Systems 10-point ROS is otherwise unremarkable Physical Examination - Vital Signs Temperature: 98.5 F Blood Pressure: 113/70 Pulse: 97 Respirations: 21 Pulse Ox (%): 91 - Physical Exam General: Alert, Oriented x3, Cooperative HEENT: Other (dry mucous membranes) Neck: JVD not distended Respiratory: Other (nonlabored on 2L NC, +dry cough) Cardiovascular: No edema, Regular rate/rhythm Gastrointestinal: Soft and benign, Non-distended Musculoskeletal: No swelling, No erythema, Tenderness (very tender bilateral lower anterior tibia, no ecchymosis, no overlying skin changes, warm, well perfused) Neurological: Normal speech, Other (mentation improving, able to have more of a conversation today, answering quicker / more straight forward) Urinary: Hummel catheter Assessment & Plan Physician Review Additional Text: Hyperglycemia, hyperosmolar hyperglycemia syndrome DM2 Hypernatremia COVID-19 Pneumonia Pulmonary Embolus PHILOMENA Altered mental status HHS DM2 Fall -patient is reportedly noncompliant and was upset family called EMS, family reported 2 day h/o cough prior to presentation; patient fell in bathroom and found by family after hearing loud thud -on admission, pt started on insulin drip, IVF with KCL no on subq insulin; Serum Osm: 360; improving, was off drip overnight after admission -hypernatremia due to correction as noted below, received 1L D50 yesterday. -SSI high dose, continue accucheks, started on lantus 10units yesterday evening -continue to monitor closely -hummel initially placed due to AMS and for accurate I/Os, can discontinue Fall B/l anterior tibia tenderness -no ecchymosis, no lesions, no skin findings, no swelling -unclear why patient is very sensitive to palpation in this limited area - likely from fall -venous Doppler negative for DVT -will check x-ray's Hypernatremia -likely due to hypovolemia / correction of hyperglycemia, received 3L NS from EMS and ED -was on 1/2NS+KCL on admission, switched to 1/2NS overnight -nephrology consulted, pt received 1L D5w bolus yesterday with improvement -mentation improving COVID-19 Pneumonia Pulmonary Embolus -desat to 85-87% on RA, especially when coughing, comfortable on 2LNC -CRP downtrending -on therapeutic lovenox -Pulm - Dr. Marx consulted PHILOMENA, prerenal; resolved -likely prerenal, improved with IVF hydration Altered mental status -likely due to HHS/hypernatremia, COVID -CT brain negative -improving Code: DNR per Dispo: anticipate hospitalization for 2-3 more days; will likely need home O2, will need anticoagulation on discharge SW/CM consulted Time Spent Managing Pts Care (In Minutes): 35
--- NOTE | 2020-05-02 10:13 | RAD REPORT ---
EXAM DESCRIPTION: RAD - Tib Fib Left - 05/02/2020 9:55 am CLINICAL HISTORY: S/P FALL Pain and swelling COMPARISON: No comparisons FINDINGS: No fracture or dislocation is identified.
--- NOTE | 2020-05-02 10:14 | RAD REPORT ---
EXAM DESCRIPTION: RAD - Tib Fib Right - 05/02/2020 9:57 am CLINICAL HISTORY: S/P FALL Fall, leg pain COMPARISON: No comparisons FINDINGS: No acute fracture or dislocation is seen.
--- NOTE | 2020-05-02 13:53 | PN ---
Date of Progress Note: 05/02/2020 Subjective: The patient was admitted with non-DKA hyperglycemia. The patient developed hypernatremia secondary to glucose diuresis. The patient had acute kidney injury. After hydration, kidney function started to be normalized. The patient had contrast the day before. Physical Examination: Vital Signs: When I saw the patient, blood pressure 104/68, pulse of 98, afebrile. The patient had good urine output of 950. Chest: Clear to auscultation. Heart: S1, S2. Regular. Abdomen: Soft, nontender. Extremities: No edema. Neurologic: Alert. No focality. Laboratory Data: WBC 11.5, H and H 10.2/32, platelet 166. Sodium 144, potassium 3.9, bicarb 23, BUN 22, creatinine 0.6. Hemoglobin A1c above 16. Blood sugar down to the 140. Calcium 7.7, phosphorus 2.4, magnesium 2.3, albumin 1.6, corrected calcium is 9.7. Current Medications: The patient on include; 1. Eliquis. 2. Atorvastatin. 3. Zofran. 4. Insulin sliding scale. 5. Lantus. Assessment And Plan: 1. Acute kidney injury secondary to prerenal, exposed to contrast on the , today the 15th. Kidney function completely normalized. I agree with discontinuing IV fluid. 2. Hypernatremia secondary to prerenal, dehydration secondary to glucose diuresis, recovered, resolved. We will maintain the patient on oral hydration and we will follow up. 3. Hypocalcemia, corrected calcium within normal limit. 4. Diabetes with non-ketone hyperglycemia, recovered. Continue current Lantus. We will follow up. 5. COVID with pneumonia as by Pulmonary. Time spent [facility]ent the care discussing the case with the patient Family member (face to face) and staff member / other sales consultant residential manager and placing order 35 min TAPAN/TAMANNA Voice ID: [id number] Report ID: [id number] JAY
[2020-05-02] MEDS ORDERED: PHENOL 1.4% ORAL SPRAY 180ML MM PRN (18:05)
[2020-05-02] MEDS: ATORVASTATIN 10 MG TAB PO SCH (20:27)
[2020-05-02] MEDS: ENSURE HIGH PROTEIN 237 ML CAN PO SCH (21:00)
[2020-05-02] MEDS: BENZONATATE 100 MG CAP PO PRN (21:21)
[2020-05-02] MEDS ORDERED: LORazepam 2 MG/ML VIAL IV ONE (22:20)
[2020-05-02] MEDS: ONDANSETRON 4 MG/2 ML VIAL IV PRN (22:45)
[2020-05-03 05:00] LABS: Absolute Lymphocytes (CBC) 1.3 K/uL (0.7-4.9); Basophils % 0.2 % (0-1.3); Hematocrit 31.3 % (36.0-45.0); Lymphocytes % 10.3 % (15.3-44.8); MPV 9.4 fL (7.6-11.3); RBC Red Blood Cell Count 3.61 M/uL (3.86-4.86)
[2020-05-03 05:29] LABS: Albumin 1.7 g/dL (3.4-5.0); BUN Blood Urea Nitrogen 10 mg/dL (7-18); Bicarbonate 27 mmol/L (21-32); Glucose Level 180 mg/dL (74-106); Magnesium 2.3 mg/dL (1.8-2.4); Phosphorus 2.5 mg/dL (2.5-4.9); Potassium 4.1 mmol/L (3.5-5.1); Sodium Level 140 mmol/L (136-145)
[2020-05-03] MEDS: INSULIN -REGULAR HUMAN 50 UNIT/0.5 ML ML SQ SCH ×4 (07:59→20:56)
[2020-05-03] MEDS: APIXABAN 5 MG TABLET PO SCH ×2 (08:00→20:07)
[2020-05-03] MEDS: INSULIN GLARGINE 100 UNITS/ML SQ SCH ×2 (08:00→20:57)
[2020-05-03] MEDS: ENSURE HIGH PROTEIN 237 ML CAN PO SCH ×2 (08:02→20:08)
--- NOTE | 2020-05-03 11:31 | P.PN ---
Subjective Date of Service: 05/03/20 Chief Complaint: COVID pneumonia, Hyperglycemia Subjective: Improving (mentating better, feeling better. continues with cough and dyspnea on exertion unable to get out of bed yesterday, had lightheadedness, found to be orthostatic. desats <80% on 3L NC with exertion) Review of Systems 10-point ROS is otherwise unremarkable Physical Examination - Vital Signs Temperature: 98.7 F Blood Pressure: 103/62 Pulse: 103 Respirations: 26 Pulse Ox (%): 93 - Physical Exam General: Alert, Oriented x3 HEENT: Mucous membr. moist/pink Neck: JVD not distended Respiratory: Other (nonlabored on 2-3LNC at rest) Cardiovascular: No edema, Regular rate/rhythm Gastrointestinal: Soft and benign, Non-distended, No tenderness Musculoskeletal: Tenderness (b/l lower legs just above ankles) Integumentary: No rashes Neurological: Normal speech, Normal affect Assessment & Plan Physician Review Additional Text: Hyperglycemia, hyperosmolar hyperglycemia syndrome DM2 Hypernatremia COVID-19 Pneumonia Pulmonary Embolus PHILOMENA Altered mental status HHS DM2 Fall -hypernatremia, hyperglycemia resolved -SSI high dose, continue accucheks, lantus 10units BID increased to 15 units BID tonight -continue to monitor closely -hummel initially placed due to AMS and for accurate I/Os, dc'd 05/02, pt with retention and required straight cath x1 on 05/02 -PT working with patient, orthostatic yesterday, continued on IVF @ 75ml/hr; recheck orthostatics, eating better today, can likely dc IVF later today Fall B/l anterior tibia tenderness -no ecchymosis, no lesions, no skin findings, no swelling -unclear why patient is very sensitive to palpation in this limited area - likely from fall -venous Doppler negative for DVT, x-rays negative for fracture Hypernatremia,resolved -likely due to hypovolemia / correction of hyperglycemia, received 3L NS from EMS and ED -improved with volume repletion with 1/2NS -nephrology consulted, pt received 1L D5w bolus on 05/01 as well -mentation improving COVID-19 Pneumonia Pulmonary Embolus -desat to 78% on 2-3LNC with exertion -was started on lovenox, transitioned to Eliquis -Pulm - Dr. Marx consulted PHILOMENA, prerenal; resolved -improved with IVF hydration Altered mental status -likely due to HHS/hypernatremia, COVID -CT brain negative, attempted MRI, pt was too restless and refused -improving Code: DNR per Dispo: anticipate discharge home in 24-48hrs, home O2 set up, will need anticoag on discharge (has eliquis coupon), will need insulin on discharge as well SW/CM consulted Time Spent Managing Pts Care (In Minutes): 35
[2020-05-03] MEDS: NACHLORIDE 0.45% 1,000 ML IV SCH (12:03)
--- NOTE | 2020-05-03 12:21 | P.PN ---
Subjective Date of Service: 05/03/20 Chief Complaint: COVID pneumonia, Hyperglycemia Subjective Pt with Covid 19 and hyperglycemia had PHILOMENA peak Cr 1.7 , A1c 16 today No cange in clincal ststus Cr 0.8 Cont IVF physical exam differed to hospitalist due to COVID 19 and conserving on PPE A/P Assessment And Plan: Acute kidney injury Due to dehydration resolved Poorly controlled DM as per primary team Hypokalemia replac as nneded COVID19 cont mgm as per pulmonary team total time spent 30min Physical Examination - Vital Signs Temperature: 98.7 F Blood Pressure: 103/62 Pulse: 103 Respirations: 26 Pulse Ox (%): 93
[2020-05-03] MEDS: BENZONATATE 100 MG CAP PO PRN ×2 (17:08→22:38)
[2020-05-03] MEDS: ATORVASTATIN 10 MG TAB PO SCH (20:07)
[2020-05-03] MEDS: ONDANSETRON 4 MG/2 ML VIAL IV PRN (23:34)
[2020-05-04 05:09] LABS: Absolute Lymphocytes (CBC) 1.3 K/uL (0.7-4.9); Basophils % 0.5 % (0-1.3); Hematocrit 31.1 % (36.0-45.0); Lymphocytes % 9.3 % (15.3-44.8); MPV 9.1 fL (7.6-11.3); RBC Red Blood Cell Count 3.58 M/uL (3.86-4.86)
[2020-05-04 05:33] LABS: Albumin 1.5 g/dL (3.4-5.0); BUN Blood Urea Nitrogen 4 mg/dL (7-18); Bicarbonate 27 mmol/L (21-32); Glucose Level 104 mg/dL (74-106); Phosphorus 2.1 mg/dL (2.5-4.9); Potassium 3.9 mmol/L (3.5-5.1); Sodium Level 141 mmol/L (136-145)
[2020-05-04] MEDS: INSULIN -REGULAR HUMAN 50 UNIT/0.5 ML ML SQ SCH ×4 (07:30→20:30)
[2020-05-04] MEDS: ENSURE HIGH PROTEIN 237 ML CAN PO SCH ×3 (09:00→20:29)
[2020-05-04] MEDS: INSULIN GLARGINE 100 UNITS/ML SQ SCH ×2 (09:33→20:30)
[2020-05-04] MEDS: BENZONATATE 100 MG CAP PO PRN ×2 (09:33→22:31)
[2020-05-04] MEDS: APIXABAN 5 MG TABLET PO SCH ×2 (09:33→20:30)
--- NOTE | 2020-05-04 09:47 | P.PN ---
Subjective Date of Service: 05/04/20 Chief Complaint: COVID pneumonia, Hyperglycemia Subjective: Other (Patient reports feeling better. When able to get out of bed to bedside commode Desaturates to the 70s, reportedly per recovers fairly quickly with rest. She is now on 5 L nasal cannula Continues with cough, also now reporting passing a few blood clots vaginally, she reports no menses in over a year.) Review of Systems 10-point ROS is otherwise unremarkable Physical Examination - Vital Signs Temperature: 99 F Blood Pressure: 117/74 Pulse: 111 Respirations: 33 Pulse Ox (%): 84 - Physical Exam General: Alert, In no apparent distress, Oriented x3 Neck: JVD not distended Respiratory: Other (Seems to get short of breath just with conversation, On 5L NC ) Cardiovascular: Normal S1 S2, Irregular heart rate/rhythm (Sinus tachycardia) Gastrointestinal: Soft and benign, Non-distended, No tenderness Musculoskeletal: Tenderness (Bilateral lower leg just above ankles) Neurological: Normal speech, Normal affect Assessment & Plan Physician Review Additional Text: Hyperglycemia, hyperosmolar hyperglycemia syndrome DM2 Hypernatremia COVID-19 Pneumonia Pulmonary Embolus PHILOMENA Altered mental status HHS DM2 Fall -hypernatremia, hyperglycemia resolved -SSI high dose, continue accucheks, lantus 10units BID increased to 15 units BID on 05/03; G-150 -not eating very much breakfast today, will give patient ensure -continue to monitor closely -hummel initially placed due to AMS and for accurate I/Os, dc'd 05/02, pt with retention and required straight cath x1 on 05/02; nursing reports very small blood clots, they are unsure if this is with her urine or vaginal bleeding, may have had slight trauma with Hummel or straight cath. Hemoglobin stable, will monitor -patient was initially orthostatics, was continued on low IV fluids, negative orthostatics yesterday and IV fluids were discontinued Fall B/l anterior tibia tenderness -no ecchymosis, no lesions, no skin findings, no swelling -unclear why patient is very sensitive to palpation in this limited area - likely from fall -venous Doppler negative for DVT, x-rays negative for fracture Hypernatremia,resolved -likely due to hypovolemia / correction of hyperglycemia, received 3L NS from EMS and ED; improved with volume repletion with 1/2NS -nephrology consulted, pt received 1L D5w bolus on 05/01 as well COVID-19 Pneumonia Pulmonary Embolus -desat to 75% on 5LNC with exertion -continue full-dose Eliquis -start Solu-Medrol 40 mg IV b.i.d. -Pulm - Dr. Marx consulted PHILOMENA, prerenal; resolved -improved with IVF hydration Altered mental status, resolved -likely due to HHS/hypernatremia, COVID -CT brain negative, attempted MRI, pt was too restless and refused -improved/resolved Code: DNR per Dispo: anticipate discharge home in 2-3 days, respiratory status seems to be worsening SW/CM consulted Time Spent Managing Pts Care (In Minutes): 35
[2020-05-04] MEDS: METHYLPREDNISOLONE 40 MG INJ IV SCH ×2 (11:15→20:29)
[2020-05-04] MEDS: GUAIFENESIN/CODEINE 5ML UCUP PO PRN (11:17)
[2020-05-04] MEDS: ACETAMINOPHEN 500 MG TAB PO PRN ×2 (15:26→22:31)
[2020-05-04] MEDS: ATORVASTATIN 10 MG TAB PO SCH (20:29)
--- NOTE | 2020-05-04 22:28 | PN ---
Date of Progress Note: 05/04/2020 Chief Complaint: COVID pneumonia, hyperglycemia. Subjective: The patient was found to have COVID-19 infection and hyperglycemia was present. She has acute kidney injury with creatinine level up to 1.7. She has uncontrolled diabetes. Hemoglobin A1c 16. Creatinine level is stabilizing, improved to 0.8. The patient is on IV fluids for hydration an d treat acute kidney injury. Physical Examination: Defer to the hospitalist due to COVID infection. Assessment And Plan: 1.Acute kidney injury due to volume depletion. Continue IV fluids as needed patient responded to IV fluids. Creatinine level is stabilizing. 2.Diabetes mellitus, poorly controlled. Continue insulin. 3.Hypokalemia, replacement as needed. Monitor magnesium level. 4.COVID infection per Pulmonary team. EB/MODL Voice ID: [id number] Report ID: [id number]
[2020-05-05] MEDS: GUAIFENESIN/CODEINE 5ML UCUP PO PRN ×3 (00:12→21:07)
[2020-05-05 05:05] LABS: Basophils % 0.5 % (0-1.3); Hematocrit 34.3 % (36.0-45.0); Lymphocytes % 5.6 % (15.3-44.8); MPV 9.9 fL (7.6-11.3); RBC Red Blood Cell Count 3.96 M/uL (3.86-4.86)
[2020-05-05 05:07] VITALS: BMI 38.3
[2020-05-05 05:13] LABS: Protime INR 2.31
[2020-05-05 05:31] LABS: ALT/SGPT 25 U/L (12-78); AST/SGOT 30 U/L (15-37); Albumin 1.7 g/dL (3.4-5.0); Alkaline Phosphatase 362 U/L (45-117); BUN Blood Urea Nitrogen 16 mg/dL (7-18); Bicarbonate 27 mmol/L (21-32); Bilirubin Total 0.4 mg/dL (0.2-1.0); Ferritin 533.9 ng/mL (8-388); Glucose Level 304 mg/dL (74-106); Magnesium 2.2 mg/dL (1.8-2.4); Phosphorus 2.8 mg/dL (2.5-4.9); Potassium 5.1 mmol/L (3.5-5.1); Protein, Total 7.3 g/dL (6.4-8.2); Sodium Level 135 mmol/L (136-145)
[2020-05-05 06:35] LABS: Blood Morphology Comment NOT SEEN (NOT SEEN); Platelet Estimate ADEQ
[2020-05-05] MEDS: INSULIN -REGULAR HUMAN 50 UNIT/0.5 ML ML SQ SCH ×4 (08:58→21:06)
[2020-05-05] MEDS: METHYLPREDNISOLONE 40 MG INJ IV SCH (08:58)
[2020-05-05] MEDS: GUAIFENESIN 600 MG SA TAB PO SCH ×2 (08:58→20:09)
[2020-05-05] MEDS: INSULIN GLARGINE 100 UNITS/ML SQ SCH ×2 (09:00→21:07)
[2020-05-05] MEDS: APIXABAN 5 MG TABLET PO SCH ×2 (09:00→20:08)
[2020-05-05] MEDS: ENSURE HIGH PROTEIN 237 ML CAN PO SCH (09:00)
--- NOTE | 2020-05-05 09:23 | P.PN ---
Subjective Date of Service: 05/05/20 Chief Complaint: COVID pneumonia, Hyperglycemia Subjective: Other (oxygen requirement increased yesterday, placed on HFNC. Very anxious and unable to tolerate BIPAP patient reports feeling about the same, feels cough is improving with medication) Physical Examination - Vital Signs Temperature: 97.5 F Blood Pressure: 117/70 Pulse: 94 Respirations: 28 Pulse Ox (%): 83 - Physical Exam General: Alert, Oriented x3 HEENT: Sclerae nonicteric Neck: Supple, JVD not distended Respiratory: Other (slight dyspnea with conversation, on HFNC) Cardiovascular: No edema, Regular rate/rhythm Gastrointestinal: Soft and benign, Non-distended, No tenderness Musculoskeletal: Tenderness (b/l lower legs just above ankles) Integumentary: No rashes Neurological: Normal speech, Normal affect Assessment & Plan Physician Review Additional Text: Hyperglycemia, hyperosmolar hyperglycemia syndrome DM2 Hypernatremia COVID-19 Pneumonia Pulmonary Embolus PHILOMENA Altered mental status COVID-19 Pneumonia Pulmonary Embolus -O2 requirement increasing -continue full-dose Eliquis -Solu-Medrol 40 mg IV b.i.d. started 05/04, increase to 80mg BID -Pulm - Dr. Marx consulted, appreciate assistance HHS DM2 Fall -hypernatremia, hyperglycemia resolved -SSI high dose, lantus 10units BID increased to 15 units BID on 05/03 -may need to increase now that patient is on solumedrol for COVID-19 -hummel initially placed due to AMS and for accurate I/Os, dc'd 05/02, pt with retention and required straight cath x1 on 05/02; nursing reports very small blood clots, they are unsure if this is with her urine or vaginal bleeding, may have had slight trauma with Hummel or straight cath. Hemoglobin stable, only small spot overnight -patient was initially orthostatics, was continued on low IV fluids, negative orthostatics 05/04 and IV fluids were discontinued Fall B/l anterior tibia tenderness -no ecchymosis, no lesions, no skin findings, no swelling -likely from fall, venous Doppler negative for DVT, x-rays negative for fracture Hypernatremia,resolved -ldue to hypovolemia / correction of hyperglycemia, received 3L NS from EMS and ED; improved with volume repletion with 1/2NS -nephrology consulted, pt received 1L D5w bolus on 05/01 as well PHILOMENA, prerenal; resolved -improved with IVF hydration Altered mental status, resolved -likely due to HHS/hypernatremia, COVID -CT brain negative, attempted MRI, pt was too restless and refused -improved/resolved Code: DNR per Dispo: respiratory status worsened yesterday, slight improvement today. Uninsured - anticipate DC home in a 2-3 days SW/CM consulted Time Spent Managing Pts Care (In Minutes): 35
--- NOTE | 2020-05-05 09:37 | P.PN ---
Subjective Date of Service: 05/05/20 Chief Complaint: ARDS from whitney virus Patient condition is stable she is still requiring high concentrations of oxygen as not has ARDS from coronal virus feeling weak CRP elevated Review of Systems General: Weakness Respiratory: Shortness of Breath Physical Examination - Vital Signs Temperature: 97.5 F Blood Pressure: 117/70 Pulse: 94 Respirations: 28 Pulse Ox (%): 83 Assessment & Plan - Problems (Diagnosis) (1) Pulmonary embolism associated with COVID-19 Current Visit: Yes Status: Acute Plan: Pulmonary embolism patient is fully anti coagulated (2) Hyperglycemia Current Visit: Yes Status: Acute Plan: Check hemoglobin A1c reconciled home medications I have increased her insulin she is probably going to need home insulin (3) Acute respiratory distress syndrome (ARDS) due to 2019 novel coronavirus Current Visit: Yes Status: Acute Plan: Patient has ARDS from coronal virus increase Solu-Medrol to 80 mg IV Q 12 hyper glycemia uncontrolled increase the dose of insulin continue to titrate O2 to a sat of 85-90% patient refusing BiPAP from position ventilation
[2020-05-05] MEDS: THIAMINE HCL 100 MG TABLET PO SCH (10:24)
[2020-05-05] MEDS: VITAMIN D 1000 UNIT TAB PO SCH (10:25)
[2020-05-05] MEDS: METHYLPREDNISOLONE 125 MG INJ IV SCH (20:07)
[2020-05-05] MEDS: ATORVASTATIN 40 MG TAB PO SCH (20:08)
[2020-05-05] MEDS: MELATONIN 3 MG TABLET PO SCH (20:08)
[2020-05-05] MEDS: GLUCERNA SHAKE 237 ML CAN PO SCH (21:53)
[2020-05-06] MEDS: BENZONATATE 100 MG CAP PO PRN ×2 (00:09→20:06)
[2020-05-06 06:05] LABS: Basophils % 0.6 % (0-1.3); Hematocrit 32.8 % (36.0-45.0); Lymphocytes % 5.8 % (15.3-44.8); MPV 9.8 fL (7.6-11.3); RBC Red Blood Cell Count 3.81 M/uL (3.86-4.86)
[2020-05-06 06:16] LABS: ALT/SGPT 20 U/L (12-78); AST/SGOT 18 U/L (15-37); Albumin 1.6 g/dL (3.4-5.0); Alkaline Phosphatase 296 U/L (45-117); BUN Blood Urea Nitrogen 21 mg/dL (7-18); Bicarbonate 28 mmol/L (21-32); Bilirubin Total 0.3 mg/dL (0.2-1.0); Glucose Level 325 mg/dL (74-106); Magnesium 2.2 mg/dL (1.8-2.4); Phosphorus 2.4 mg/dL (2.5-4.9); Potassium 5.1 mmol/L (3.5-5.1); Protein, Total 7.1 g/dL (6.4-8.2); Sodium Level 135 mmol/L (136-145)
[2020-05-06 06:34] LABS: Platelet Estimate ADEQ; White Blood Cell Scan OK (OK)
[2020-05-06 06:35] LABS: Blood Morphology Comment NOT SEEN (NOT SEEN)
[2020-05-06] MEDS: GUAIFENESIN/CODEINE 5ML UCUP PO PRN (06:37)
[2020-05-06] MEDS: METHYLPREDNISOLONE 125 MG INJ IV SCH ×2 (07:58→20:07)
[2020-05-06] MEDS: THIAMINE HCL 100 MG TABLET PO SCH (07:59)
[2020-05-06] MEDS: VITAMIN D 1000 UNIT TAB PO SCH (07:59)
[2020-05-06] MEDS: APIXABAN 5 MG TABLET PO SCH ×2 (07:59→20:06)
[2020-05-06] MEDS: GLUCERNA SHAKE 237 ML CAN PO SCH ×2 (08:00→20:07)
[2020-05-06] MEDS: GUAIFENESIN 600 MG SA TAB PO SCH ×2 (08:01→20:06)
[2020-05-06] MEDS: INSULIN -REGULAR HUMAN 50 UNIT/0.5 ML ML SQ SCH ×4 (08:15→21:03)
[2020-05-06] MEDS: INSULIN GLARGINE 100 UNITS/ML SQ SCH ×2 (08:55→21:03)
--- NOTE | 2020-05-06 08:57 | P.PN ---
Subjective Date of Service: 05/06/20 Chief Complaint: ARDS from whitney virus, PE Subjective: Improving (Wounds still on HFNC, wean down to 55% from 75% this morning Patient reports she is feeling a little bit better, a little bit stronger, but still very short of breath Oxygenation drops significantly when moving, but she seems to recover fairly quickly) Review of Systems 10-point ROS is otherwise unremarkable Physical Examination - Vital Signs Temperature: 98.3 F Blood Pressure: 131/93 Pulse: 83 Respirations: 33 Pulse Ox (%): 94 - Physical Exam General: Oriented x3 HEENT: Mucous membr. moist/pink, Sclerae nonicteric Neck: Supple Respiratory: Other (Breathing heavily) Cardiovascular: No edema, Regular rate/rhythm Gastrointestinal: Soft and benign, Non-distended, No tenderness Musculoskeletal: Tenderness (Slight tenderness just above the ankles) Integumentary: No rashes Neurological: Normal speech, Normal affect Assessment & Plan Physician Review Additional Text: COVID-19 Pneumonia Pulmonary Embolus Hyperglycemia, hyperosmolar hyperglycemia syndrome DM2 Hypernatremia, resolved PHILOMENA, resolved Altered mental status COVID-19 Pneumonia Pulmonary Embolus -on high-flow nasal cannula, attempting to wean down -continue Eliquis -Solu-Medrol 40 mg IV b.i.d. started 05/04, increased to 80mg BID on the evening of 05/05; Lantus increased to 20 units as well -Pulm - Dr. Marx consulted, appreciate assistance HHS DM2 Fall -hypernatremia, hyperglycemia resolved -SSI high dose, lantus 10units BID increased to 15 units BID on 05/03 and to 20 units on the evening of 05/05 -may need further increase -olson initially placed due to AMS and for accurate I/Os, dc'd 05/02, pt with retention and required straight cath x1 on 05/02; nursing reports very small blood clots, they are unsure if this is with her urine or vaginal bleeding, may have had slight trauma with Olson or straight cath. Hemoglobin stable, no further bleeding noted -initially orthostatic, resolved with IVF, negative orthostatics 05/04 Fall B/l anterior tibia tenderness -likely from fall, venous Doppler negative for DVT, x-rays negative for fracture Hypernatremia,resolved PHILOMENA, prerenal; resolved -due to hypovolemia / correction of hyperglycemia, resolved with volume repletion, nephrology was consulted Altered mental status, resolved -likely due to HHS/hypernatremia, COVID -CT brain negative, attempted MRI, pt was too restless and refused -improved/resolved Code: DNR per Dispo: anticipate DC home in a 1-2 days, weaning oxygen SW/CM consulted Time Spent Managing Pts Care (In Minutes): 35
--- NOTE | 2020-05-06 13:33 | P.PN ---
Subjective Date of Service: 05/07/20 Chief Complaint: ARDS from whitney virus, PE Patient condition is stable she is still requiring high concentrations of oxygen as not has ARDS from coronal virus feeling weak CRP elevated Physical Examination - Vital Signs Temperature: 98.3 F Blood Pressure: 131/90 Pulse: 88 Respirations: 24 Pulse Ox (%): 93 Assessment & Plan - Problems (Diagnosis) (1) Pulmonary embolism associated with COVID-19 Current Visit: Yes Status: Acute Plan: Pulmonary embolism patient is fully anti coagulated (2) Hyperglycemia Current Visit: Yes Status: Acute Plan: Check hemoglobin A1c reconciled home medications I have increased her insulin she is probably going to need home insulin (3) Acute respiratory distress syndrome (ARDS) due to 2019 novel coronavirus Current Visit: Yes Status: Acute Plan: Patient has ARDS from coronal virus increase Solu-Medrol to 80 mg IV Q 12 hyperglycemia uncontrolled increase the dose of insulin continue to titrate O2 to a sat of 85-90% patient refusing BiPAP from position ventilation
--- NOTE | 2020-05-06 16:31 | P.PN ---
Subjective Date of Service: 05/07/20 (Telephone visit) Chief Complaint: ARDS from whitney virus, PE Patient is gradually improving oxygen been titrated down 6 pages desaturation 1st thing in the morning Physical Examination - Vital Signs Temperature: 98.3 F Blood Pressure: 130/99 Pulse: 97 Respirations: 25 Pulse Ox (%): 100 Assessment & Plan - Problems (Diagnosis) (1) Pulmonary embolism associated with COVID-19 Current Visit: Yes Status: Acute Plan: Pulmonary embolism patient is fully anti coagulated (2) Hyperglycemia Current Visit: Yes Status: Acute Plan: Check hemoglobin A1c reconciled home medications I have increased her insulin she is probably going to need home insulin (3) Acute respiratory distress syndrome (ARDS) due to 2019 novel coronavirus Current Visit: Yes Status: Acute Plan: Continue with present treatment continue to monitor CRP once is FiO2 requirement is less than 50% can decrease the steroids vital signs stable hyperglycemic white count is 1 mildly elevated I have also added levofloxacin for the possibility of superimposed bacterial pneumonia increase the dose of Lantus
[2020-05-06] MEDS: levoFLOXacin 500 MG TAB PO SCH (17:16)
[2020-05-06] MEDS ORDERED: AMLODIPINE 2.5 MG TAB PO ONE (19:00)
[2020-05-06] MEDS: ATORVASTATIN 40 MG TAB PO SCH (20:06)
[2020-05-06] MEDS: MELATONIN 3 MG TABLET PO SCH (20:06)
[2020-05-06] MEDS: SODIUM CHLORIDE 0.9% 10ML INJ IV PRN (20:07)
[2020-05-07] MEDS: GUAIFENESIN/CODEINE 5ML UCUP PO PRN ×2 (00:05→08:11)
[2020-05-07 05:46] LABS: BUN Blood Urea Nitrogen 21 mg/dL (7-18); Bicarbonate 29 mmol/L (21-32); Glucose Level 176 mg/dL (74-106); Magnesium 2.2 mg/dL (1.8-2.4); Phosphorus 2.7 mg/dL (2.5-4.9); Potassium 4.6 mmol/L (3.5-5.1); Sodium Level 136 mmol/L (136-145)
[2020-05-07] MEDS: THIAMINE HCL 100 MG TABLET PO SCH (08:03)
[2020-05-07] MEDS: VITAMIN D 1000 UNIT TAB PO SCH (08:03)
[2020-05-07] MEDS: INSULIN GLARGINE 100 UNITS/ML SQ SCH ×2 (08:03→20:40)
[2020-05-07] MEDS: METHYLPREDNISOLONE 125 MG INJ IV SCH (08:03)
[2020-05-07] MEDS: levoFLOXacin 500 MG TAB PO SCH (08:03)
[2020-05-07] MEDS: APIXABAN 5 MG TABLET PO SCH ×2 (08:03→20:39)
[2020-05-07] MEDS: GLUCERNA SHAKE 237 ML CAN PO SCH ×2 (08:04→20:39)
[2020-05-07] MEDS: INSULIN -REGULAR HUMAN 50 UNIT/0.5 ML ML SQ SCH ×4 (08:04→20:39)
[2020-05-07] MEDS: GUAIFENESIN 600 MG SA TAB PO SCH ×2 (08:04→20:39)
--- NOTE | 2020-05-07 09:53 | P.PN ---
Subjective Date of Service: 05/07/20 Chief Complaint: ARDS from whitney virus, PE Subjective Pt with Covid 19 and hyperglycemia had PHILOMENA peak Cr 1.7 , A1c 16 today pt cont to require High O2 D-Dimer trending down Cont steroids and Abx physical exam differed to hospitalist due to COVID 19 and conserving on PPE A/P Assessment And Plan: Acute kidney injury Due to dehydration resolved Poorly controlled DM as per primary team Hypokalemia replac as nneded COVID19 cont mgm as per pulmonary team on steroids and Abx total time spent 30min Physical Examination - Vital Signs Temperature: 98 F Blood Pressure: 139/95 Pulse: 88 Respirations: 22 Pulse Ox (%): 88
--- NOTE | 2020-05-07 10:08 | P.PN ---
Subjective Date of Service: 05/07/20 Chief Complaint: ARDS from whitney virus, PE High-flow oxygen is being weaned down. FiO2 is now 50% with the flow of 30 L /min. Patient is complaining of shortness of breath. No recorded fever. Physical Examination - Vital Signs Temperature: 98 F Blood Pressure: 139/95 Pulse: 88 Respirations: 22 Pulse Ox (%): 88 - Physical Exam General: Alert, Mild distress HEENT: Mucous membr. moist/pink Neck: Supple Respiratory: Diminished, Crackles/rales (Bilateral) Cardiovascular: No edema, Regular rate/rhythm, Normal S1 S2 Gastrointestinal: Normal bowel sounds, Soft and benign, No tenderness Musculoskeletal: No swelling, No tenderness Integumentary: No rashes Neurological: Normal speech, Normal strength at 5/5 x4 extr Assessment And Plan Physician Review Additional Text: COVID-19 Pneumonia Pulmonary Embolus Hyperglycemia, hyperosmolar hyperglycemia syndrome DM2 Hypernatremia, resolved PHILOMENA, resolved Altered mental status COVID-19 Pneumonia Pulmonary Embolus -on high-flow nasal cannula. Oxygen is being weaned down. -continue Eliquis -continue IV Solu-Medrol -pulmonary- Dr. Marx is following. HHS/DM2 -resolved. Blood sugar is better controlled. -continue SSRI current Lantus dose. Hypernatremia: -hypernatremia resolved. Fall/ B/l anterior tibia tenderness -likely from fall, venous Doppler negative for DVT, x-rays negative for fracture. -initially orthostatic, resolved with IVF, negative orthostatics 05/04. PHILOMENA, prerenal; resolved -due to hypovolemia / correction of hyperglycemia, resolved with volume repletion. -nephrology assisted with management. Altered mental status, resolved -likely due to HHS/hypernatremia, COVID -CT brain negative, attempted MRI, pt was too restless and refused -improved/resolved Code: DNR per Dispo: weaning oxygen. Dc once patient is tolerating oxygen by nasal cannula. SW/CM consulted
--- NOTE | 2020-05-07 10:40 | PN ---
Date of Progress Note: 05/05/2020 Chief Complaint: Chronic pneumonia, acute kidney injury due to volume depletion. Subjective: Patient was started on IV fluids. Serum creatinine was up to 1.7 and stabilized, improv ed to 0.8. The patient is on IV fluids for hydration and to treat kidney injury. Objective: Deferred to hospitalist due to COVID infection. Assessment And Plan: 1.Acute kidney injury, volume depletion, stabilized with IV fluids. Renal function has been stable. Potassium level is in the upper normal range. I recommend to continue insulin for diabetes managem ent. 2.Hypokalemia. Previously replaced. Monitor magnesium level and potassium level. 3.COVID infection per Pulmonary team. EB/MODL Voice ID: [id number] Report ID: [id number]
--- NOTE | 2020-05-07 10:55 | PN ---
Date of Progress Note: 05/06/2020 Chief Complaint: Acute kidney injury in recovery phase. Subjective: The patient improved with IV fluids. Serum creatinine was up to 1.7, improved to 0.8 an d has been stable. Urine output is adequate. Electrolytes are improving. Recently patient develope d borderline hyperkalemia, which stabilized with adequate insulin treatment uncontrolled diabetes. T here is no evidence of metabolic acidosis. Review of Systems: Patient has COVID infection. Physical Examination: Deferred to the hospital. Assessment And Plan: 1.Acute kidney injury due to volume depletion nonoliguric acute tubular necrosis. Patient has adequ ate urine output and renal function has stabilized. 2.Diabetes mellitus, poorly controlled. Continue insulin. 3.Borderline hyperkalemia, resolved. Continue to monitor electrolytes and continue insulin regimen for diabetic. 4.COVID infection per Pulmonary team. EB/MODL Voice ID: [id number] Report ID: [id number]
--- NOTE | 2020-05-07 13:01 | P.PN ---
Subjective Date of Service: 05/07/20 (Telephone visit) Chief Complaint: Lopez virus pneumonia Patient's condition is stable she is slowly improving on high-flow nasal cannula oxygen Physical Examination - Vital Signs Temperature: 98.5 F Blood Pressure: 113/70 Pulse: 97 Respirations: 21 Pulse Ox (%): 91 Assessment & Plan - Problems (Diagnosis) (1) Pulmonary embolism associated with COVID-19 Current Visit: Yes Status: Acute Plan: A continue with anticoagulation (2) Acute respiratory distress syndrome (ARDS) due to 2019 novel coronavirus Current Visit: Yes Status: Acute Plan: ARDS from lopez virus patient is improving reduce Solu-Medrol to 40 mg IV Q 12 vital signs stable
[2020-05-07] MEDS: ATORVASTATIN 40 MG TAB PO SCH (20:39)
[2020-05-07] MEDS: METHYLPREDNISOLONE 40 MG INJ IV SCH (20:39)
[2020-05-07] MEDS: MELATONIN 3 MG TABLET PO SCH (20:39)
[2020-05-08] MEDS: GUAIFENESIN/CODEINE 5ML UCUP PO PRN ×2 (00:52→22:49)
[2020-05-08 05:09] LABS: Absolute Lymphocytes (CBC) 0.9 K/uL (0.7-4.9); Basophils % 0.7 % (0-1.3); Hematocrit 30.7 % (36.0-45.0); Lymphocytes % 7.7 % (15.3-44.8); MPV 8.8 fL (7.6-11.3); RBC Red Blood Cell Count 3.64 M/uL (3.86-4.86)
[2020-05-08 05:23] LABS: ALT/SGPT 17 U/L (12-78); AST/SGOT 14 U/L (15-37); Albumin 1.8 g/dL (3.4-5.0); Alkaline Phosphatase 201 U/L (45-117); BUN Blood Urea Nitrogen 22 mg/dL (7-18); Bicarbonate 29 mmol/L (21-32); Bilirubin Total 0.3 mg/dL (0.2-1.0); Glucose Level 148 mg/dL (74-106); Potassium 4.6 mmol/L (3.5-5.1); Protein, Total 6.4 g/dL (6.4-8.2); Sodium Level 139 mmol/L (136-145)
[2020-05-08] MEDS: INSULIN -REGULAR HUMAN 50 UNIT/0.5 ML ML SQ SCH ×4 (07:30→19:55)
[2020-05-08] MEDS: METHYLPREDNISOLONE 40 MG INJ IV SCH ×2 (08:49→19:55)
[2020-05-08] MEDS: APIXABAN 5 MG TABLET PO SCH ×2 (08:49→19:56)
[2020-05-08] MEDS: levoFLOXacin 500 MG TAB PO SCH (08:49)
[2020-05-08] MEDS: INSULIN GLARGINE 100 UNITS/ML SQ SCH ×2 (08:49→19:55)
[2020-05-08] MEDS: VITAMIN D 1000 UNIT TAB PO SCH (08:50)
[2020-05-08] MEDS: GLUCERNA SHAKE 237 ML CAN PO SCH ×2 (08:50→19:49)
[2020-05-08] MEDS: GUAIFENESIN 600 MG SA TAB PO SCH ×2 (08:50→19:56)
[2020-05-08] MEDS: THIAMINE HCL 100 MG TABLET PO SCH (08:50)
--- NOTE | 2020-05-08 11:57 | PN ---
Date of Progress Note: 05/08/2020 Subjective: The patient was admitted with acute kidney injury, COVID pneumonia, developed hypernatremia. Had non-ketone hyperglycemia, treated, recovered. The patient currently on high-flow oxygen, maintaining 94%. Physical Examination: Vital Signs: Blood pressure 126/88, pulse of 80. The patient had good urine output of 1250, positive of 230. Chest: Faint rales on the left side. Heart: S1, S2. Regular. Abdomen: Soft, nontender. Extremities: Trace edema. Neurologic: Alert, confused. Laboratory Data: WBC 11.1, H and H 10.3/30.7. Sodium 139, potassium 4.6, bicarb 29, BUN 22, creatinine 0.6, calcium 8.3. AST, ALT within normal limit. Current Medications: The patient on include Levaquin 500 daily, atorvastatin, Tylenol, Zofran, Solu-Medrol 40 b.i.d., insulin, melatonin, guaifenesin. Assessment And Plan: 1. Acute kidney injury secondary to prerenal, recovered, resolved. 2. Hypernatremia secondary to glucose diuresis, recovered, resolved. Off IV fluid currently. I am going to continue to monitor. 3. Hypertension, controlled, optimal. 4. Hypocalcemia, corrected calcium within normal limit. 5. COVID pneumonia. Follow up with Pulmonary. Continue current antibiotic. Time spent Corordent the care discussing the case with the patient Family member (face to face) and staff member / other crop consultant and placing order 35 min MARVEL Voice ID: [id number] Report ID: [id number] MTDD
--- NOTE | 2020-05-08 14:41 | P.PN ---
Subjective Date of Service: 05/08/20 Chief Complaint: Lopez virus pneumonia Patient doing better compared to yesterday. She was able to tolerate oxygen by nasal cannula briefly. Now back high-flow oxygen at 45% FiO2 and 30 L per Min flow after using the bedside commode. Physical Examination - Vital Signs Temperature: 97.8 F Blood Pressure: 140/91 Pulse: 81 Respirations: 25 Pulse Ox (%): 94 - Physical Exam General: Alert, Mild distress HEENT: Mucous membr. moist/pink Respiratory: Crackles/rales (bilateral) Cardiovascular: No edema Gastrointestinal: Soft and benign, Non-distended Neurological: Normal speech, Other (Nonfocal.) Assessment And Plan Physician Review Additional Text: COVID-19 Pneumonia Pulmonary Embolus Hyperglycemia, hyperosmolar hyperglycemia syndrome DM2 Hypernatremia, resolved PHILOMENA, resolved Altered mental status COVID-19 Pneumonia Pulmonary Embolus -on high-flow nasal cannula. -wean down oxygen -continue Eliquis -continue IV Solu-Medrol -pulmonary- Dr. Marx is following. HHS/DM2 -HHS resolved. Blood sugar is better controlled. -continue SSRI and current Lantus dose. Hypernatremia: -hypernatremia resolved. Fall/ B/l anterior tibia tenderness -likely from fall, venous Doppler negative for DVT, x-rays negative for fracture. -initially orthostatic, but orthostasis resolved with IVF. PHILOMENA, prerenal; resolved -due to hypovolemia. Resolved with volume repletion. -nephrology assisted with management. Altered mental status -likely due to HHS/hypernatremia, COVID -CT brain negative, attempted MRI, pt was too restless and refused -resolved Code: DNR per Dispo: Dc to home once patient is tolerating oxygen by nasal cannula.
[2020-05-08] MEDS: MELATONIN 3 MG TABLET PO SCH (19:56)
[2020-05-08] MEDS: ATORVASTATIN 40 MG TAB PO SCH (19:57)
[2020-05-09] MEDS: METHYLPREDNISOLONE 40 MG INJ IV SCH (08:17)
[2020-05-09] MEDS: APIXABAN 5 MG TABLET PO SCH (08:17)
[2020-05-09] MEDS: THIAMINE HCL 100 MG TABLET PO SCH (08:18)
[2020-05-09] MEDS: INSULIN -REGULAR HUMAN 50 UNIT/0.5 ML ML SQ SCH ×4 (08:18→21:10)
[2020-05-09] MEDS: levoFLOXacin 500 MG TAB PO SCH (08:18)
[2020-05-09] MEDS: SODIUM CHLORIDE 0.9% 10ML INJ IV PRN (08:18)
[2020-05-09] MEDS: INSULIN GLARGINE 100 UNITS/ML SQ SCH (08:19)
[2020-05-09] MEDS: VITAMIN D 1000 UNIT TAB PO SCH (08:20)
[2020-05-09] MEDS: GUAIFENESIN 600 MG SA TAB PO SCH ×2 (08:20→21:10)
[2020-05-09] MEDS: GLUCERNA SHAKE 237 ML CAN PO SCH ×2 (08:20→21:11)
--- NOTE | 2020-05-09 09:48 | P.PN ---
Subjective Date of Service: 05/09/20 Chief Complaint: Lopez virus pneumonia Patient is doing much better today. She is not tolerating 3 L of oxygen by nasal cannula. She has good oral intake. I am told patient cannot afford Eliquis. Physical Examination - Vital Signs Temperature: 97.3 F Blood Pressure: 154/83 Pulse: 66 Respirations: 12 Pulse Ox (%): 98 - Physical Exam General: Alert, In no apparent distress HEENT: Mucous membr. moist/pink Respiratory: Crackles/rales (Bilateral) Cardiovascular: No edema, Regular rate/rhythm, Normal S1 S2 Gastrointestinal: Non-distended Musculoskeletal: No swelling, No erythema Integumentary: No rashes Neurological: Other (Nonfocal) Assessment And Plan Physician Review Additional Text: COVID-19 Pneumonia Pulmonary Embolus Hyperglycemia, hyperosmolar hyperglycemia syndrome DM2 Hypernatremia, resolved PHILOMENA, resolved Altered mental status COVID-19 Pneumonia Pulmonary Embolus -patient currently tolerating oxygen by nasal cannula. -since she cannot afford Eliquis which change to warfarin with Lovenox bridge. -continue IV Solu-Medrol -pulmonary input appreciated. HHS/DM2 -HHS resolved. Blood sugar is better controlled. -continue SSRI and current Lantus dose. -patient will be discharged with insulin therapy. -with change Lantus to NPH due to affordability. Hypernatremia: -hypernatremia resolved. Fall/ B/l anterior tibia tenderness -likely from fall, venous Doppler negative for DVT, x-rays negative for fracture. -initially orthostatic, but orthostasis resolved with IVF. PHILOMENA, prerenal; resolved -due to hypovolemia. Resolved with volume repletion. -nephrology assisted with management. Altered mental status -likely due to HHS/hypernatremia, COVID -CT brain negative, attempted MRI, pt was too restless and refused -resolved Code: DNR per Dispo: Dc to home once patient is tolerating oxygen by nasal cannula.
[2020-05-09 10:51] LABS: Protime INR 1.78
--- NOTE | 2020-05-09 12:40 | PN ---
Date of Progress Note: 05/09/2020 Subjective: The patient was admitted with COVID pneumonia. Had acute kidney injury and severe hyper natremia. The patient had non-ketoacidosis hyperglycemia. The patient's after adjusting her blood s ugar, hypernatremia has been resolved. The patient has been stable. Physical Examination: Vital Signs: When I saw the patient, blood pressure 154/83, pulse of 66, afebrile. The patient had good urine output of 1100 even balance. Chest: Clear to auscultation. Heart: S1, S2. Regular. Systolic murmur. Abdomen: Soft, nontender. Extremities: No edema. Neuro: Alert, confused. No focal. The patient on nasal cannula. Laboratory Data: WBC 11.1, H and H 10.3/30.7. Sodium 139, potassium 4.6, bicarb 29, BUN 22, creatin ine 0.6, GFR above 90, calcium 8.3. Current Medications: The patient on include Lovenox, levofloxacin, Coumadin, atorvastatin, Tylenol, Zofran, insulin. Assessment And Plan: 1.Acute kidney injury secondary to prerenal, secondary to glucose diuresis, recovered, resolved. 2.Hypernatremia secondary to glucose diuresis, resolved. 3.Hypertension, controlled, not optimal. I am going to start the patient on lisinopril. 4.Contrast-induced nephropathy, recovered, resolved. 5.COVID pneumonia as by primary. TAPAN/TAMANNA Voice ID: [id number] Report ID: [id number]
--- NOTE | 2020-05-09 13:03 | P.PN ---
Subjective Date of Service: 05/09/20 Chief Complaint: Lopez virus pneumonia Patient is doing much better currently on 2 L on nasal cannula oxygen Review of Systems General: Weakness Respiratory: Shortness of Breath Physical Examination - Vital Signs Temperature: 97.7 F Blood Pressure: 143/94 Pulse: 68 Respirations: 20 Pulse Ox (%): 96 Assessment & Plan - Problems (Diagnosis) (1) Pulmonary embolism associated with COVID-19 Current Visit: Yes Status: Acute Plan: Patient admitted with pulmonary embolus she has no insurance recommend anti coagulated with Coumadin follow up at the [facility] to monitor PT INR anticoagulation for a minimum 6 months longer if needed (2) Acute respiratory distress syndrome (ARDS) due to 2019 novel coronavirus Current Visit: Yes Status: Acute Plan: Patient is now only requiring 2 L of nasal cannula oxygen recommend changing to p.o. prednisone anti mg twice a day for a week and then decrease it to 10 mg twice a day will follow her up as an outpatient
[2020-05-09] MEDS: WARFARIN SODIUM 5 MG TAB PO SCH (17:03)
[2020-05-09] MEDS: INSULIN 70/30 100 UNITS/ML SQ SCH (17:04)
[2020-05-09] MEDS: MELATONIN 3 MG TABLET PO SCH (21:09)
[2020-05-09] MEDS: ENOXAPARIN 100 MG/ML SYR SQ SCH (21:10)
[2020-05-09] MEDS: predniSONE 20 MG TAB PO SCH (21:10)
[2020-05-09] MEDS: ATORVASTATIN 40 MG TAB PO SCH (21:10)
[2020-05-09] MEDS: GUAIFENESIN/CODEINE 5ML UCUP PO PRN (21:24)
[2020-05-10 04:49] LABS: Protime INR 1.29
[2020-05-10 04:56] LABS: Albumin 1.9 g/dL (3.4-5.0); BUN Blood Urea Nitrogen 18 mg/dL (7-18); Bicarbonate 31 mmol/L (21-32); Glucose Level 84 mg/dL (74-106); Phosphorus 3.4 mg/dL (2.5-4.9); Potassium 4.5 mmol/L (3.5-5.1); Sodium Level 138 mmol/L (136-145)
[2020-05-10] MEDS: INSULIN -REGULAR HUMAN 50 UNIT/0.5 ML ML SQ SCH ×4 (07:30→21:00)
[2020-05-10] MEDS: INSULIN 70/30 100 UNITS/ML SQ SCH ×2 (07:30→17:13)
[2020-05-10] MEDS: GUAIFENESIN 600 MG SA TAB PO SCH ×2 (08:50→21:20)
[2020-05-10] MEDS: levoFLOXacin 500 MG TAB PO SCH (08:51)
[2020-05-10] MEDS: predniSONE 20 MG TAB PO SCH ×2 (08:51→21:19)
[2020-05-10] MEDS: VITAMIN D 1000 UNIT TAB PO SCH (08:51)
[2020-05-10] MEDS: ENOXAPARIN 100 MG/ML SYR SQ SCH ×2 (08:51→21:20)
[2020-05-10] MEDS: THIAMINE HCL 100 MG TABLET PO SCH (08:51)
[2020-05-10] MEDS: GLUCERNA SHAKE 237 ML CAN PO SCH ×2 (08:51→21:22)
[2020-05-10] MEDS ORDERED: AMLODIPINE 10 MG TAB PO SCH (09:00)
--- NOTE | 2020-05-10 10:32 | P.PN ---
Subjective Date of Service: 05/10/20 Chief Complaint: Lopez virus pneumonia No major changes from yesterday. She is tolerating oxygen by nasal cannula. She has good oral intake. She states she has been ambulating in the room. Physical Examination - Vital Signs Temperature: 97.8 F Blood Pressure: 109/84 Pulse: 63 Respirations: 35 Pulse Ox (%): 100 - Physical Exam General: Alert, In no apparent distress HEENT: Mucous membr. moist/pink Respiratory: Normal air movement Cardiovascular: No edema, Regular rate/rhythm Gastrointestinal: Normal bowel sounds, Soft and benign Musculoskeletal: No swelling Integumentary: No rashes Assessment And Plan Physician Review Additional Text: COVID-19 Pneumonia Pulmonary Embolus Hyperglycemia, hyperosmolar hyperglycemia syndrome DM2 Hypernatremia, resolved PHILOMENA, resolved Altered mental status COVID-19 Pneumonia Pulmonary Embolus -patient currently tolerating oxygen by nasal cannula. -continue Lovenox and Warfarin -on prednisone -pulmonary input appreciated. HHS/DM2 -HHS resolved. Blood sugar is better controlled. -continue SSRI and current Lantus dose. -patient will be discharged with insulin therapy. -continue NPH.y. Hypernatremia: -hypernatremia resolved. Fall/ B/l anterior tibia tenderness -likely from fall, venous Doppler negative for DVT, x-rays negative for fracture. -initially orthostatic, but orthostasis resolved with IVF. PHILOMENA, prerenal; resolved -due to hypovolemia. Resolved with volume repletion. -nephrology assisted with management. Altered mental status -likely due to HHS/hypernatremia, COVID -CT brain negative, attempted MRI, pt was too restless and refused -resolved Code: DNR per Dispo: Dc to home once INR is therapeutic.
--- NOTE | 2020-05-10 10:54 | P.PN ---
Subjective Date of Service: 05/10/20 Chief Complaint: Lopez virus pneumonia Subjective Pt with Covid 19 and hyperglycemia had PHILOMENA peak Cr 1.7 , A1c 16 today improving now Started on Coumadin, monitor INR steroids tapering as per pulmonary physical exam differed to hospitalist due to COVID 19 and conserving on PPE A/P Assessment And Plan: Acute kidney injury Due to dehydration resolved Poorly controlled DM as per primary team Hypokalemia replac as nneded COVID19 cont mgm as per pulmonary team on steroids and Abx PE in Coumadin total time spent 30min Physical Examination - Vital Signs Temperature: 97.8 F Blood Pressure: 109/84 Pulse: 63 Respirations: 35 Pulse Ox (%): 100
--- NOTE | 2020-05-10 12:28 | P.PN ---
Subjective Date of Service: 05/10/20 Chief Complaint: Lopez virus pneumonia and pulmonary embolus Patient is doing well no new complaints Review of Systems General: Weakness Respiratory: Shortness of Breath Physical Examination - Vital Signs Temperature: 97.8 F Blood Pressure: 113/83 Pulse: 99 Respirations: 18 Pulse Ox (%): 98 - Physical Exam General: Alert, Oriented x3 Respiratory: Crackles/rales Cardiovascular: No edema, Regular rate/rhythm Assessment & Plan - Problems (Diagnosis) (1) Pulmonary embolism associated with COVID-19 Current Visit: Yes Status: Acute Plan: Patient needs to be anti coagulated for at least 6 months as she has no insurance patient was changed to Coumadin once her INR is therapeutic agree with overlap with Lovenox to discharge follow or up as an outpatient (2) Acute respiratory distress syndrome (ARDS) due to 2019 novel coronavirus Current Visit: Yes Status: Acute Plan: Doing well on 2 L nasal cannula oxygen Dc levofloxacin as a can interfere with INR CRP was 50 continue with p.o. prednisone blood sugars controlled Physician Review Additional Text: COVID-19 Pneumonia Pulmonary Embolus Hyperglycemia, hyperosmolar hyperglycemia syndrome DM2 Hypernatremia, resolved PHILOMENA, resolved Altered mental status COVID-19 Pneumonia Pulmonary Embolus -patient currently tolerating oxygen by nasal cannula. -continue Lovenox and Warfarin -on prednisone -pulmonary input appreciated. HHS/DM2 -HHS resolved. Blood sugar is better controlled. -continue SSRI and current Lantus dose. -patient will be discharged with insulin therapy. -continue NPH.y. Hypernatremia: -hypernatremia resolved. Fall/ B/l anterior tibia tenderness -likely from fall, venous Doppler negative for DVT, x-rays negative for fracture. -initially orthostatic, but orthostasis resolved with IVF. PHILOMENA, prerenal; resolved -due to hypovolemia. Resolved with volume repletion. -nephrology assisted with management. Altered mental status -likely due to HHS/hypernatremia, COVID -CT brain negative, attempted MRI, pt was too restless and refused -resolved Code: DNR per Dispo: Dc to home once INR is therapeutic.
[2020-05-10] MEDS ORDERED: WARFARIN SODIUM 5 MG TAB PO ONE (17:00)
[2020-05-10] MEDS: WARFARIN SODIUM 5 MG TAB PO SCH (17:12)
[2020-05-10] MEDS: MELATONIN 3 MG TABLET PO SCH (21:20)
[2020-05-10] MEDS: ATORVASTATIN 40 MG TAB PO SCH (21:20)
[2020-05-11 05:48] LABS: Protime INR 1.55
[2020-05-11 06:08] LABS: Albumin 1.9 g/dL (3.4-5.0); BUN Blood Urea Nitrogen 18 mg/dL (7-18); Bicarbonate 31 mmol/L (21-32); Glucose Level 109 mg/dL (74-106); Magnesium 2.1 mg/dL (1.8-2.4); Phosphorus 3.9 mg/dL (2.5-4.9); Potassium 4.5 mmol/L (3.5-5.1); Sodium Level 139 mmol/L (136-145)
[2020-05-11] MEDS: INSULIN -REGULAR HUMAN 50 UNIT/0.5 ML ML SQ SCH ×4 (07:30→20:01)
[2020-05-11] MEDS: INSULIN 70/30 100 UNITS/ML SQ SCH ×2 (08:34→16:35)
[2020-05-11] MEDS: predniSONE 20 MG TAB PO SCH ×2 (08:34→20:00)
[2020-05-11] MEDS: THIAMINE HCL 100 MG TABLET PO SCH (08:35)
[2020-05-11] MEDS: VITAMIN D 1000 UNIT TAB PO SCH (08:35)
[2020-05-11] MEDS: ENOXAPARIN 100 MG/ML SYR SQ SCH ×2 (08:36→20:02)
[2020-05-11] MEDS: GUAIFENESIN 600 MG SA TAB PO SCH ×2 (08:37→20:00)
[2020-05-11] MEDS: GLUCERNA SHAKE 237 ML CAN PO SCH ×2 (08:38→20:03)
[2020-05-11] MEDS ORDERED: POLYETHYL GLY 3350 17 GM/DOSE PO PRN (10:05)
--- NOTE | 2020-05-11 10:05 | P.PN ---
Subjective Date of Service: 05/11/20 Chief Complaint: Lopez virus pneumonia and pulmonary embolus Patient is doing much better today. Oxygen has been weaned down to 1.5 liters/minute She has good oral intake. Physical Examination - Vital Signs Temperature: 97.2 F Blood Pressure: 137/92 Pulse: 70 Respirations: 15 Pulse Ox (%): 99 - Physical Exam General: Alert, In no apparent distress Respiratory: Normal air movement Cardiovascular: No edema, Regular rate/rhythm Gastrointestinal: Non-distended Musculoskeletal: No swelling, No erythema Integumentary: No rashes Assessment And Plan Physician Review Additional Text: COVID-19 Pneumonia Pulmonary Embolus Hyperglycemia, hyperosmolar hyperglycemia syndrome DM2 Hypernatremia, resolved PHILOMENA, resolved Altered mental status COVID-19 Pneumonia Pulmonary Embolus -patient currently tolerating oxygen by nasal cannula. -continue Lovenox and Warfarin -monitor PT and INR. Target INR of 2. -on prednisone -pulmonary input appreciated. HHS/DM2 -HHS resolved. Blood sugar is better controlled. -continue SSRI and current Lantus dose. -patient will be discharged with insulin therapy. -continue NPH Hypernatremia: -hypernatremia resolved. Fall/ B/l anterior tibia tenderness -likely from fall, venous Doppler negative for DVT, x-rays negative for fracture. -initially orthostatic, but orthostasis resolved with IVF. PHILOMENA, prerenal; resolved -due to hypovolemia. Resolved with volume repletion. -nephrology assisted with management. Altered mental status -likely due to HHS/hypernatremia, COVID -CT brain negative, attempted MRI, pt was too restless and refused -resolved Constipation -start MiraLax and senna. Code: DNR per Dispo: Dc to home once INR is therapeutic.
--- NOTE | 2020-05-11 15:35 | P.PN ---
Subjective Date of Service: 05/11/20 Chief Complaint: Lopez virus pneumonia and pulmonary embolus Subjective Pt with Covid 19 and hyperglycemia had PHILOMENA peak Cr 1.7 , A1c 16 today no change in clinical status INR 2.5 steroids tapering as per pulmonary physical exam differed to hospitalist due to COVID 19 and conserving on PPE A/P Assessment And Plan: Acute kidney injury Due to dehydration resolved Poorly controlled DM as per primary team Hypokalemia replac as nneded COVID19 cont mgm as per pulmonary team on steroids and Abx PE in Coumadin total time spent 30min Physical Examination - Vital Signs Temperature: 97.2 F Blood Pressure: 137/92 Pulse: 70 Respirations: 15 Pulse Ox (%): 99
[2020-05-11] MEDS ORDERED: WARFARIN SODIUM 5 MG TAB PO SCH (17:00)
[2020-05-11] MEDS: SENOSIDES 8.6 MG TAB PO SCH (20:01)
[2020-05-11] MEDS: ATORVASTATIN 40 MG TAB PO SCH (20:01)
[2020-05-11] MEDS: MELATONIN 3 MG TABLET PO SCH (20:01)
[2020-05-12 05:32] LABS: Protime INR 3.23
[2020-05-12 05:41] LABS: BUN Blood Urea Nitrogen 20 mg/dL (7-18); Bicarbonate 32 mmol/L (21-32); Glucose Level 118 mg/dL (74-106); Phosphorus 3.3 mg/dL (2.5-4.9); Potassium 4.7 mmol/L (3.5-5.1); Sodium Level 138 mmol/L (136-145)
[2020-05-12] MEDS: INSULIN -REGULAR HUMAN 50 UNIT/0.5 ML ML SQ SCH ×2 (07:30→12:33)
[2020-05-12] MEDS: VITAMIN D 1000 UNIT TAB PO SCH (08:19)
[2020-05-12] MEDS: SENOSIDES 8.6 MG TAB PO SCH (08:19)
[2020-05-12] MEDS: THIAMINE HCL 100 MG TABLET PO SCH (08:19)
[2020-05-12] MEDS: predniSONE 20 MG TAB PO SCH (08:19)
[2020-05-12] MEDS: GUAIFENESIN 600 MG SA TAB PO SCH (08:19)
[2020-05-12] MEDS: GLUCERNA SHAKE 237 ML CAN PO SCH (08:20)
[2020-05-12] MEDS: INSULIN 70/30 100 UNITS/ML SQ SCH (08:20)
[2020-05-12] MEDS: ENOXAPARIN 100 MG/ML SYR SQ SCH (09:00)
--- NOTE | 2020-05-12 10:28 | P.PN ---
Subjective Date of Service: 05/12/20 Chief Complaint: Lopez virus pneumonia and pulmonary embolus Patient is doing much better today minimal oxygen no new complaints INR therapeutic Review of Systems Unremarkable Physical Examination - Vital Signs Temperature: 97.8 F Blood Pressure: 109/73 Pulse: 64 Respirations: 14 Pulse Ox (%): 98 - Physical Exam General: Alert, Oriented x3 Respiratory: Clear to auscultation bilaterally Cardiovascular: No edema, Regular rate/rhythm Assessment & Plan - Problems (Diagnosis) (1) Pulmonary embolism associated with COVID-19 Current Visit: Yes Status: Acute Plan: Patient is doing much better INR is not therapeutic recommend discharge on Coumadin 5 mg once a day and monitor PT INR patient to call an to this week maintain an INR between 2 and 3 (2) Acute respiratory distress syndrome (ARDS) due to 2019 novel coronavirus Current Visit: Yes Status: Acute Plan: Doing much better on minimal oxygen
[2020-05-12 11:02] VITALS: O2SAT 96
--- NOTE | 2020-05-12 11:37 | P.DS ---
Admission Date: 04/30/20 Discharge Date: 05/12/20 Disposition: ROUTINE DISCHARGE Discharge Condition: FAIR Reason for Admission: Lopez virus pneumonia and pulmonary embolus Consultations: Pulmonary-Dr. Marx. Renal-Dr. Zaragoza. - Problems (1) Hyperosmolar hyperglycemic state (HHS) Current Visit: Yes Status: Acute (2) Acute respiratory distress syndrome (ARDS) due to 2019 novel coronavirus Current Visit: Yes Status: Acute (3) Hypernatremia Current Visit: Yes Status: Acute (4) Pulmonary embolism associated with COVID-19 Current Visit: Yes Status: Acute (5) Acute renal failure Current Visit: Yes Status: Acute Brief History of Present Illness: 54-year-old woman with a history of diabetes mellitus, noncompliant with therapy was brought to the emergency department due to altered mental status. Patient is reported to have fallen. Chest x-ray done in the ED reported diffuse bilateral infiltrates. Her D-dimer was extremely elevated. CTA thorax done demonstrated right sided pulmonary embolus. CT angiogram findings were suggestive of COVID pneumonia. Her COVID test was positive. Patient was admitted for further management. Hospital Course: Patient was placed on full-dose Lovenox. She was also placed on IV steroid for the coughing pneumonia. Has severe hyperglycemia on presentation. She was diagnosed with hyperosmolar hyperglycemic state and treated with insulin drip. She was later transition to subcutaneous insulin sliding scale and subsequently NPH insulin and sliding scale. Her glucose is currently better controlled on NPH insulin. She will be discharged with NPH insulin for diabetes management. Patient was transitioned from full-dose Lovenox and Eliquis. Patient told staff she could not afford Eliquis and was then transitioned to Coumadin with Lovenox bridge. Her INR is currently therapeutic. Patient will be discharged with Coumadin 5 mg daily. She will follow [facility] for PT INR check and Coumadin dose adjustment. Patient respiratory condition got worse during the course of hospitalization and required high-flow oxygen. The COVID pneumonia was treated with steroid. Patient gradually improved with treatment. Her shortness of breath has resolved. She is currently tolerating 1 L of oxygen by nasal cannula. Patient will be discharged with oxygen therapy and also to continue steroid treatment. She had hypernatremia and acute renal which resolved with IV hydration. Nephrology assisted with management. Vital Signs/Physical Exam: Temp Pulse Resp BP Pulse Ox 97.8 F 64 14 109/73 98 05/12/20 10:28 05/12/20 10:28 05/12/20 10:28 05/12/20 10:28 05/12/20 10:28 General: Alert, In no apparent distress Cardiovascular: No edema, Regular rate/rhythm Laboratory Data at Discharge: WBC 11.1 K/uL (4.3-10.9) H D 05/08/20 04:42 Hgb 10.3 g/dL (12.0-15.0) L 05/08/20 04:42 Hct 30.7 % (36.0-45.0) L 05/08/20 04:42 Plt Count 285 K/uL (152-406) 05/08/20 04:42 PT 37.2 SECONDS (9.5-12.5) H 05/12/20 05:05 INR 3.23 05/12/20 05:05 APTT Cancelled 05/01/20 09:30 Sodium 138 mmol/L (136-145) 05/12/20 05:05 Potassium 4.7 mmol/L (3.5-5.1) 05/12/20 05:05 BUN 20 mg/dL (7-18) H 05/12/20 05:05 Creatinine 0.62 mg/dL (0.55-1.3) 05/12/20 05:05 Glucose 118 mg/dL (74-106) H 05/12/20 05:05 Uric Acid 10.1 mg/dL (2.6-6.0) H 05/01/20 13:05 Phosphorus 3.3 mg/dL (2.5-4.9) 05/12/20 05:05 Magnesium 2.0 mg/dL (1.8-2.4) 05/12/20 05:05 Total Bilirubin 0.3 mg/dL (0.2-1.0) 05/08/20 04:42 AST 14 U/L (15-37) L 05/08/20 04:42 ALT 17 U/L (12-78) 05/08/20 04:42 Alkaline Phosphatase 201 U/L (45-117) H 05/08/20 04:42 Triglycerides 228 mg/dL (<150) H 05/01/20 04:03 Cholesterol 223 mg/dL (<200) H 05/01/20 04:03 HDL Cholesterol 21 mg/dL (40-60) L 05/01/20 04:03 Cholesterol/HDL Ratio 10.62 05/01/20 04:03 Home Medications: predniSONE [Prednisone] 10 mg PO BID #28 tablet 05/09/20 Alcohol Antiseptic Pads [Caretouch Alcohol Prep Pad] 1 each TP TID #100 med..pad 05/12/20 Atorvastatin Calcium [Lipitor] 40 mg PO BEDTIME #30 tab 05/12/20 Blood Sugar Diagnostic [Caretouch Test Strip] 1 each TID #100 strip 05/12/20 Blood-Glucose Meter [Caretouch Glucose Monitoring] 1 each TID #1 kit 05/12/20 Cholecalciferol (Vitamin D3) [Vitamin D 1000 Iu Tab*] 2,000 unit PO DAILY #30 tab 05/12/20 Insulin 70/30 NPH/Reg Human [Novolin 70/30*] 25 unit SQ BIDAC #100 ml 05/12/20 Lancing Device [Matomy [employer]lan[employer]Connect Ult Lancing Device] 1 each TID #100 each 05/12/20 Senosides [Senokot*] 17.2 mg PO BID #60 tab 05/12/20 Syringe-Needle,Insulin,0.5 ml [Caretouch Insulin Syringe] 1 each TID #100 disp.syrin 05/12/20 Thiamine HCl [Vitamin B-1*] 200 mg PO DAILY #60 tablet 05/12/20 Warfarin Sodium [Coumadin*] 5 mg PO DAILY 5 PM #14 tab 05/12/20 New Medications: Lancing Device [Carelance Ult Lancing Device] 1 each TID #100 each Alcohol Antiseptic Pads [Caretouch Alcohol Prep Pad] 1 each TP TID #100 med..pad Blood-Glucose Meter [Caretouch Glucose Monitoring] 1 each TID #1 kit Syringe-Needle,Insulin,0.5 ml [Caretouch Insulin Syringe] 1 each TID #100 disp.syrin Blood Sugar Diagnostic [Caretouch Test Strip] 1 each TID #100 strip Warfarin Sodium [Coumadin*] 5 mg PO DAILY 5 PM #14 tab Atorvastatin Calcium [Lipitor] 40 mg PO BEDTIME #30 tab Insulin 70/30 NPH/Reg Human [Novolin 70/30*] 25 unit SQ BIDAC #100 ml predniSONE [Prednisone] 10 mg PO BID #28 tablet Senosides [Senokot*] 17.2 mg PO BID #60 tab Thiamine HCl [Vitamin B-1*] 200 mg PO DAILY #60 tablet Cholecalciferol (Vitamin D3) [Vitamin D 1000 Iu Tab*] 2,000 unit PO DAILY #30 tab Diet: ADA Activity: Ad nito Followup: Navi Marx MD [ACTIVE - CAN ADMIT] - 1 Week Unknown,U [ACTIVE - CAN ADMIT] - ([facility] next week. Call [phone]. Check INR next week for coumadin dose adjustment.) Time spent managing pt's care (in minutes): 45
[2020-05-12 12:05] VITALS: BP 114/76; TEMP 97.4
--- NOTE | 2020-05-12 12:20 | P.PN ---
Subjective Date of Service: 05/12/20 Chief Complaint: Lopez virus pneumonia and pulmonary embolus Subjective Pt with Covid 19 and hyperglycemia had PHILOMENA peak Cr 1.7 , A1c 16 today no change in clinical status on RA now plan for discharge today can be discharged from nephrology point of view physical exam differed to hospitalist due to COVID 19 and conserving on PPE A/P Assessment And Plan: Acute kidney injury Due to dehydration resolved Poorly controlled DM as per primary team Hypokalemia replac as nneded COVID19 cont mgm as per pulmonary team on steroids and Abx PE on Coumadin total time spent 30min Physical Examination - Vital Signs Temperature: 97.4 F Blood Pressure: 114/76 Pulse: 87 Respirations: 17 Pulse Ox (%): 98
[2020-05-12] MEDS ORDERED: WARFARIN SODIUM 5 MG TAB PO SCH (17:00)
== END 2020-05-12 15:10 | disposition home or self-care (01) | DRG 177 ==
LOC: ER 12:37 → ERHOLD 14:42 → 3RD-ICU 17:27
PROVIDERS: ADMIT Hospitalist; ATTEND Internal Medicine
DX: U07.1 COVID-19 (principal); E11.00 Type 2 diabetes mellitus with hyperosmolarity without nonketotic hyperglycemic-hyperosmolar coma (NKHHC); J12.89 Other viral pneumonia; I26.99 Other pulmonary embolism without acute cor pulmonale; J80 Acute respiratory distress syndrome; N17.0 Acute kidney failure with tubular necrosis; E87.0 Hyperosmolality and hypernatremia; E87.3 Alkalosis; E86.0 Dehydration; K52.9 Noninfective gastroenteritis and colitis, unspecified; E83.51 Hypocalcemia; E87.6 Hypokalemia; K59.00 Constipation, unspecified; N14.1 Nephropathy induced by other drugs, medicaments and biological substances; T50.8X5A Adverse effect of diagnostic agents, initial encounter; Z66 Do not resuscitate; Z91.14 Patient's other noncompliance with medication regimen; Z88.5 Allergy status to narcotic agent; Z79.52 Long term (current) use of systemic steroids; Z79.4 Long term (current) use of insulin; Z79.899 Other long term (current) drug therapy
CPT/HCPCS: 36415; 70450; 71250; 71275; 72125; 80048; 80053; 80061; 80069; 81003; 82010; 82728; 82805; 82947; 83036; 83615; 83735; 83930; 83935; 84100; 84132; 84145; 84300; 84439; 84443; 84550; 85025; 85379; 85610; 85730; 86140; 87040; 87086; 87088; 93005; 93970; 94002; 94003; 94010; 96361; 96365; 96372; 97110; 97112; 97116; 97161; 97530; 99285; C9113; J1610; J1644; J1650; J1815; J2405; J2920; J2930; J3480; J7030; J7512; Q9967; U0003

== ENCOUNTER 2020-05-28 08:06 | Emergency (ER) | payer SELFPAY ==
[2020-05-28] MEDS ORDERED: DIPHENHYDRAMINE 50 MG/ML VIAL ONE (09:18)
[2020-05-28] MEDS ORDERED: NA CHLORIDE 0.9% 1,000 ML ONE (09:19)
[2020-05-28] MEDS ORDERED: FAMOTIDINE 20 MG/2 ML VIAL IV ONE (09:19)
--- NOTE | 2020-05-28 09:26 | RAD REPORT ---
EXAM DESCRIPTION: RAD - Chest Single View - 05/28/2020 9:13 am CLINICAL HISTORY: Congestion;Dyspnea Chest pain. COMPARISON: No comparisons FINDINGS: Portable technique limits examination quality. The lungs are grossly clear. The heart is normal in size. No displaced fractures. IMPRESSION: No acute intrathoracic process suspected.
--- NOTE | 2020-05-28 09:42 | RAD REPORT ---
EXAM DESCRIPTION: CT - Chest For Pe Angio - 05/28/2020 9:24 am CLINICAL HISTORY: Chest pain. DYSPNEA COMPARISON: Chest For Pe Angio dated 04/30/2020 TECHNIQUE: CT angiogram of the pulmonary arteries was performed with MIP. All CT scans are performed using dose optimization technique as appropriate and may include automated exposure control or mA/KV adjustment according to patient size. FINDINGS: No evidence of pulmonary thromboembolism. No acute aortic finding demonstrated. Moderate bilateral interstitial lung opacities are present, greater in the lung bases, likely represe nting interstitial pneumonia/ bronchitis. No significant pericardial or pleural fluid. No concerning bony finding. IMPRESSION: No evidence of pulmonary thromboembolism. Moderate bilateral interstitial lung opacities are present most compatible with interstitial pneumoni a/ bronchitis.
[2020-05-28 10:01] LABS: Absolute Lymphocytes (CBC) 1.7 K/uL (0.7-4.9); Basophils % 0.7 % (0-1.3); Hematocrit 30.2 % (36.0-45.0); Lymphocytes % 16.5 % (15.3-44.8); MPV 7.9 fL (7.6-11.3); RBC Red Blood Cell Count 3.55 M/uL (3.86-4.86)
[2020-05-28 10:08] LABS: Protime INR 3.71
[2020-05-28 10:22] LABS: ALT/SGPT 17 U/L (12-78); AST/SGOT 23 U/L (15-37); Albumin 2.4 g/dL (3.4-5.0); Alkaline Phosphatase 114 U/L (45-117); BUN Blood Urea Nitrogen 10 mg/dL (7-18); Bicarbonate 31 mmol/L (21-32); Bilirubin Direct < 0.1 mg/dL (0-0.2); Bilirubin Total 0.4 mg/dL (0.2-1.0); Glucose Level 84 mg/dL (74-106); NT PRO-BNP 109 pg/mL (<125); Potassium 3.8 mmol/L (3.5-5.1); Protein, Total 6.8 g/dL (6.4-8.2); Sodium Level 144 mmol/L (136-145); Troponin (Emerg Dept Use Only) < 0.02 ng/mL (0.0-0.045)
[2020-05-28 10:24] LABS: Magnesium 1.4 mg/dL (1.8-2.4)
[2020-05-28] MEDS ORDERED: Magnesium Sulfate 2gm IVPB 0 G/0 ML BAG IV ONE (10:50)
[2020-05-28] MEDS ORDERED: MAGNESIUM SULFATE 1 gm IVPB 1 GM/100 ML BAG IV ONE (10:52)
--- NOTE | 2020-05-28 11:04 | RAD REPORT ---
EXAM DESCRIPTION: RAD - Chest Single View - 05/28/2020 10:58 am CLINICAL HISTORY: COUGH Chest pain. COMPARISON: Chest For Pe Angio dated 05/28/2020 FINDINGS: Portable technique limits examination quality. The lungs are underinflated with [id number] bilateral interstitial lung opacities present sugge sting viral bronchitis. The heart is normal in size. No displaced fractures.
--- NOTE | 2020-05-28 11:30 | RAD REPORT ---
EXAM DESCRIPTION: US - Extrem Venous W Compress Aramis - 05/28/2020 11:14 am CLINICAL HISTORY: PAIN Bilateral leg edema and swelling. COMPARISON: Extrem Venous W Compress Aramis dated 05/01/2020 TECHNIQUE: Real-time sonographic interrogation of the left and right lower extremity deep venous sys tems was performed. FINDINGS: Normal compressibility, flow augmentation, phasic flow and spontaneous flow is identified in both the left and right lower extremity deep venous systems. IMPRESSION: No sonographic evidence of left or right lower extremity deep venous thrombosis.
--- NOTE | 2020-05-28 12:24 | EDPHYS ---
Physician Documentation [facility] Name: Ning Kirk Age: 54 yrs Sex: Female : 1965 Arrival Date: 05/28/2020 Time: 08:07 Bed 6 Private MD: ED Physician Ivan Sen HPI: 05/28 08:38 This 54 yrs old Black Female presents to ER via Unassigned with complaints of Shortness wei Of Breath. 08:38 The patient has shortness of breath at rest. Onset: The symptoms/episode began/occurred wei 2 day(s) ago. Duration: The symptoms are continuous, and are steadily getting worse. The patient's shortness of breath has no apparent modifying factors. Associated signs and symptoms: Pertinent positives: non-productive cough, itching. Severity of symptoms: At their worst the symptoms were mild moderate in the emergency department the symptoms are unchanged. The patient has not experienced similar symptoms in the past. Historical: - Allergies: 08:15 tramadol; aa5 - PMHx: 08:15 Diabetes - IDDM; aa5 - Immunization history:: Adult Immunizations unknown. - Social history:: Smoking status: Patient denies any tobacco usage or history of. - Family history:: not pertinent. ROS: 08:38 Constitutional: Negative for fever, chills, and weight loss, Eyes: Negative for injury, wei pain, redness, and discharge, ENT: Negative for injury, pain, and discharge, Neck: Negative for injury, pain, and swelling, Cardiovascular: Negative for chest pain, palpitations, and edema, Abdomen/GI: Negative for abdominal pain, nausea, vomiting, diarrhea, and constipation, Back: Negative for injury and pain, : Negative for injury, bleeding, discharge, and swelling, Skin: Negative for injury, rash, and discoloration, Neuro: Negative for headache, weakness, numbness, tingling, and seizure, Psych: Negative for depression, anxiety, suicide ideation, homicidal ideation, and hallucinations, Allergy/Immunology: Negative for hives, rash, and allergies, Endocrine: Negative for neck swelling, polydipsia, polyuria, polyphagia, and marked weight changes, Hematologic/Lymphatic: Negative for swollen nodes, abnormal bleeding, and unusual bruising. 08:38 Respiratory: Positive for cough, shortness of breath, at rest. 08:38 MS/extremity: Positive for swelling, of the right leg and left leg. Exam: 08:38 Constitutional: This is a well developed, well nourished patient who is awake, alert, wei and in no acute distress. Head/Face: Normocephalic, atraumatic. Eyes: Pupils equal round and reactive to light, extra-ocular motions intact. Lids and lashes normal. Conjunctiva and sclera are non-icteric and not injected. Cornea within normal limits. Periorbital areas with no swelling, redness, or edema. ENT: Nares patent. No nasal discharge, no septal abnormalities noted. Tympanic membranes are normal and external auditory canals are clear. Oropharynx with no redness, swelling, or masses, exudates, or evidence of obstruction, uvula midline. Mucous membranes moist. Neck: Trachea midline, no thyromegaly or masses palpated, and no cervical lymphadenopathy. Supple, full range of motion without nuchal rigidity, or vertebral point tenderness. No Meningismus. Chest/axilla: Normal chest wall appearance and motion. Nontender with no deformity. No lesions are appreciated. Cardiovascular: Regular rate and rhythm with a normal S1 and S2. No gallops, murmurs, or rubs. Normal PMI, no JVD. No pulse deficits. Respiratory: Lungs have equal breath sounds bilaterally, clear to auscultation and percussion. No rales, rhonchi or wheezes noted. No increased work of breathing, no retractions or nasal flaring. Abdomen/GI: Soft, non-tender, with normal bowel sounds. No distension or tympany. No guarding or rebound. No evidence of tenderness throughout. Back: No spinal tenderness. No costovertebral tenderness. Full range of motion. Female : Normal external genitalia. Skin: Warm, dry with normal turgor. Normal color with no rashes, no lesions, and no evidence of cellulitis. Neuro: Awake and alert, GCS 15, oriented to person, place, time, and situation. Cranial nerves II-XII grossly intact. Motor strength 5/5 in all extremities. Sensory grossly intact. Cerebellar exam normal. Normal gait. Psych: Awake, alert, with orientation to person, place and time. Behavior, mood, and affect are within normal limits. 08:38 Musculoskeletal/extremity: Extremities: grossly normal except: decreased ROM, pain, swelling, ROM: full active range of motion, full passive range of motion, Circulation is intact in all extremities. Sensation intact. Compartment Syndrome exam of affected extremity: is normal. DVT Exam: negative Homans' sign noted on exam, no appreciated bluish discoloration, no erythema, no increased warmth, pain, swelling, tenderness. 11:43 ECG was reviewed by the Attending Physician. wei 12:21 Abdomen/GI: Rectal exam: is unremarkable, rectal tone Stool: guaiac negative, wei hemorrhoid(s), are not appreciated, mass, is not appreciated, swelling, is not appreciated, tenderness, is not appreciated, Liver: no appreciated palpable abnormalities, Hernia: not appreciated. Vital Signs: 08:15 BP 105 / 79; Pulse 115; Resp 24 S; Temp 98.4(O); Pulse Ox 100% on 2 lpm NC; aa5 09:45 BP 112 / 75; Pulse 96; Resp 19; Pulse Ox 94% on 3 lpm NC; zb 10:45 BP 113 / 62; Pulse 97; Resp 20; Pulse Ox 93% on 3 lpm NC; zb 11:45 BP 111 / 73; Pulse 92; Resp 19; Pulse Ox 93% on 3 lpm NC; zb 12:45 BP 116 / 68; Pulse 95; Resp 20; Pulse Ox 94% on 3 lpm NC; zb MDM: 08:09 Patient medically screened. wei 08:40 Differential diagnosis: Anemia Anxiety Reaction Bronchitis CHF exacerbation, Chronic wei Obstructive Pulmonary Disease pneumonia, Pneumothorax pulmonary edema, Pulmonary Embolism reactive airway disease, Unstable Angina. Antibiotic administration: Not indicated. The patient's Wells Deep Vein Thrombosis Score was calculated as follows: Previous DVT/PE (1.5 Pts). The patient's pulmonary embolism risk score was calculated as follows: patient has experienced immobilization or surgery in the last four weeks (1.5 Pts) the patient has a history of a previous deep vein thrombosis or pulmonary embolism (1.5 Pts) Total Score: 3-6 points. This patient was found to be at moderate risk for a pulmonary embolism by using the Well's assessment criteria. 08:42 Immunization status: Influenza vaccine: Data reviewed: vital signs, nurses notes, lab wei test result(s), EKG, radiologic studies, CT scan, doppler, plain films. Data interpreted: court recording monitor: rate is 95 beats/min, rhythm is regular, Pulse oximetry: on room air is 96 %. Test interpretation: by ED physician or midlevel provider: ECG, plain radiologic studies. Counseling: I had a detailed discussion with the patient and/or guardian regarding: the historical points, exam findings, and any diagnostic results supporting the discharge/admit diagnosis, the presence of at least one elevated blood pressure reading (>120/80) during this emergency department visit, lab results, radiology results. 05/28 08:37 Order name: Basic Metabolic Panel; Complete Time: 10:29 [facility] 05/28 08:37 Order name: CBC with Diff; Complete Time: 10: [facility] 05/28 08:37 Order name: LFT's; Complete Time: 10: [facility] 05/28 08:37 Order name: Magnesium; Complete Time: 10: [facility] 05/28 08:37 Order name: NT PRO-BNP; Complete Time: 10: [facility] 05/28 08:37 Order name: PT-INR; Complete Time: 10: [facility] 05/28 08:37 Order name: Troponin (emerg Dept Use Only); Complete Time: 10: [facility] 05/28 08:37 Order name: CT Chest For PE Angio; Complete Time: 10:29 [facility] 05/28 08:37 Order name: US Extremity Venous W Compression Aramis; Complete Time: 11:38 [facility] 05/28 10:47 Order name: Chest Single View; Complete Time: 11:24 EDMS 05/28 11:25 Order name: ABG: room air [facility] 05/28 08:37 Order name: EKG; Complete Time: 08:38 [facility] 05/28 08:37 Order name: Cardiac monitoring; Complete Time: 09: [facility] 05/28 08:37 Order name: EKG - Nurse/Tech; Complete Time: 13:09 [facility] 05/28 08:37 Order name: IV Saline Lock; Complete Time: : [facility] 05/28 08:37 Order name: O2 Per Protocol; Complete Time: : [facility] 05/28 08:37 Order name: O2 Sat Monitoring; Complete Time: : [facility] EC:43 Rate is 99 beats/min. Rhythm is regular. QRS [place] is Normal. MO interval is normal. QRS wei interval is normal. QT interval is normal. No Q waves. T waves are Normal. No ST changes noted. Clinical impression: NSR w/ Non-specific ST/T Changes and No evidence of ischemia. Interpreted by me. Reviewed by me. Administered Medications: 09:40 Drug: NS 0.9% 1000 ml Route: IV; Rate: 75 ml/hr; Site: left forearm; zb 13:09 Follow up: Response: No adverse reaction; IV Status: Completed infusion; IV Intake: ph 150ml 10:00 Drug: Benadryl 25 mg Route: IVP; Site: right forearm; zb 11:15 Follow up: Response: No adverse reaction zb 10:01 Drug: Pepcid 20 mg Route: IVP; Site: right forearm; zb 11:15 Follow up: Response: No adverse reaction zb 11:15 Drug: Magnesium Sulfate 1 grams Route: IVPB; Infused Over: 1 hrs; Site: right forearm; zb 12:30 Follow up: Response: No adverse reaction; IV Status: Completed infusion ph Disposition: 05/28/20 12:24 Discharged to Home. Impression: Dermatitis, unspecified - itchy skin, Anemia, unspecified, Type 1 diabetes mellitus, Dyspnea - sp covid pna, Obesity, unspecified. - Condition is Stable. - Discharge Instructions: Anemia, Nonspecific, Contact Dermatitis, Type 1 Diabetes Mellitus, Diagnosis, Adult, Rash, Shortness of Breath, Shortness of Breath, [id number], Rash, [id number], Diabetes Mellitus and Food, Contact Dermatitis, [id number], Type 1 Diabetes Mellitus, Self Care, Adult, Stec-jn-Czcg, COVID-19. - Prescriptions for Benadryl 25 mg Oral Capsule - take 1 capsule by ORAL route every 6 hours As needed; 30 tablet. Pepcid 20 mg Oral Tablet - take 1 tablet by ORAL route every 12 hours for 10 days; 20 tablet. - Medication Reconciliation Form, Thank You Letter, Antibiotic Education, Prescription Opioid Use form. - Follow up: Private Physician; When: 1 - 2 days; Reason: Recheck today's complaints, Continuance of care, Re-evaluation by your physician. Follow up: Navi Marx MD; When: 1 - 2 days; Reason: Recheck today's complaints, Continuance of care, Re-evaluation by your physician. - Problem is new. - Symptoms have improved. Signatures: Dispatcher [employer] EDIvan Torres MD MD cha Calderon, Audri, RN RN aa5 Hilary Henderson RN RN Eve Olivas RN RN zb Corrections: (The following items were deleted from the chart) 10:46 08:38 Chest Single View+RAD.RAD.BRZ ordered. EDMS EDMS 13:09 12:24 05/28/2020 12:24 Discharged to Home. Impression: Dermatitis, unspecified - itchy ph skin; Anemia, unspecified; Type 1 diabetes mellitus; Dyspnea - sp covid pna; Obesity, unspecified. Condition is Stable. Forms are Medication Reconciliation Form, Thank You Letter, Antibiotic Education, Prescription Opioid Use. Follow up: Private Physician; When: 1 - 2 days; Reason: Recheck today's complaints, Continuance of care, Re-evaluation by your physician. Follow up: Navi Marx; When: 1 - 2 days; Reason: Recheck today's complaints, Continuance of care, Re-evaluation by your physician. Problem is new. Symptoms have improved. wei
--- NOTE | 2020-05-28 12:24 | ER ---
Nurse's Notes [facility] Name: Ning Kirk Age: 54 yrs Sex: Female : 1965 Arrival Date: 05/28/2020 Time: 08:07 Bed 6 Private MD: Diagnosis: Dermatitis, unspecified-itchy skin;Anemia, unspecified;Type 1 diabetes mellitus;Dyspnea-sp covid pna;Obesity, unspecified Presentation: 05/28 08:15 Chief complaint: Chief complaint: "I am short of breath and I've been itching all over aa5 since Wednesday". Pt states "I was admitted on April 30 with COVID and I actually just finished warfarin yesterday, I also been using oxygen at home since I got discharged from the hospital". 08:15 Coronavirus screen: shortness of breath, Client presents with at least one sign or aa5 symptom that may indicate coronavirus-19. Standard/surgical mask placed on the client. Provider contacted for isolation considerations. Ebola Screen: Patient negative for fever greater than or equal to 101.5 degrees Fahrenheit, and additional compatible Ebola Virus Disease symptoms. Initial Sepsis Screen: Does the patient meet any 2 criteria? RR > 20 per min. HR > 90 bpm. Yes Does the patient have a suspected source of infection? No. Patient's initial sepsis screen is negative. Risk Assessment: Do you want to hurt yourself or someone else? Patient reports no desire to harm self or others. Onset of symptoms was May 2020. 08:15 Method Of Arrival: Ambulatory aa5 08:15 Acuity: HERACLIO 3 aa5 Triage Assessment: 13:22 Respiratory: Reports shortness of breath at rest. zb 13:22 Respiratory: the patient has moderate shortness of breath. zb Historical: - Allergies: 08:15 tramadol; aa5 - PMHx: 08:15 Diabetes - IDDM; aa5 - Immunization history:: Adult Immunizations unknown. - Social history:: Smoking status: Patient denies any tobacco usage or history of. - Family history:: not pertinent. Screenin:50 Abuse screen: Denies threats or abuse. Denies injuries from another. Nutritional zb screening: No deficits noted. Tuberculosis screening: No symptoms or risk factors identified. Fall Risk No fall in past 12 months (0 pts). No secondary diagnosis (0 pts). IV access (20 points). Ambulatory Aid- None/Bed Rest/Nurse Assist (0 pts). Gait- Normal/Bed Rest/Wheelchair (0 pts) Mental Status- Oriented to own ability (0 pts). Total Mora Fall Scale indicates No Risk (0-24 pts). Assessment: 08:44 General: Appears in no apparent distress. obese, Behavior is calm, cooperative, zb appropriate for age, Reports sob, bilateral swelling of the legs, and hives. Denies fever. Pain: Complains of pain in right leg and left leg Aggravated by touch. Cardiovascular: Reports shortness of breath, Denies nausea, palpitations, Capillary refill < 3 seconds Edema is 2+ to left ankle, left foot, left toes, right ankle, right foot and right toes and left leg and right leg. Respiratory: Airway is patent Trachea midline Respiratory effort is even, unlabored. GI: No signs and/or symptoms were reported involving the gastrointestinal system. : No signs and/or symptoms were reported regarding the genitourinary system. EENT: No signs and/or symptoms were reported regarding the EENT system. Derm: No signs and/or symptoms reported regarding the dermatologic system. Derm: Reports itching. Musculoskeletal: Circulation, motion, and sensation intact. 09:10 Reassessment: x-ray in room. zb 09:44 Reassessment: Patient appears in no apparent distress at this time. Patient and/or zb family updated on plan of care and expected duration. Pain level reassessed. Patient is alert, oriented x 3, equal unlabored respirations, skin warm/dry/pink. Respiratory: Airway is patent Respiratory effort is even, unlabored. 11:17 Reassessment: Patient appears in no apparent distress at this time. Patient and/or zb family updated on plan of care and expected duration. Pain level reassessed. Patient is alert, oriented x 3, equal unlabored respirations, skin warm/dry/pink. Respiratory: Airway is patent Respiratory effort is even, unlabored. 12:00 Reassessment: Patient appears in no apparent distress at this time. Patient and/or zb family updated on plan of care and expected duration. Pain level reassessed. Patient is alert, oriented x 3, equal unlabored respirations, skin warm/dry/pink. 13:00 Reassessment: pt discharge home with home o2 in place instructed to follow up with PCP. zb Vital Signs: 08:15 BP 105 / 79; Pulse 115; Resp 24 S; Temp 98.4(O); Pulse Ox 100% on 2 lpm NC; aa5 09:45 BP 112 / 75; Pulse 96; Resp 19; Pulse Ox 94% on 3 lpm NC; zb 10:45 BP 113 / 62; Pulse 97; Resp 20; Pulse Ox 93% on 3 lpm NC; zb 11:45 BP 111 / 73; Pulse 92; Resp 19; Pulse Ox 93% on 3 lpm NC; zb 12:45 BP 116 / 68; Pulse 95; Resp 20; Pulse Ox 94% on 3 lpm NC; zb ED Course: 08:07 Patient arrived in ED. ag5 08:09 Ivan Sen MD is Attending Physician. wei 08:15 Antony Pyle, RN is Primary Nurse. bp 08:15 Arm band placed on Patient placed in an exam room, on a stretcher. aa5 08:43 Eve Schultz, RN is Primary Nurse. zb 08:46 Triage completed. aa5 08:51 Missed attempt(s): 22 gauge in right antecubital area. zb 09:24 CT Chest For PE Angio In Process Unspecified. EDMS 09:24 CT completed. Patient tolerated procedure well. Patient moved to CT via stretcher. [email or web address] Patient moved back from CT. 09:56 Basic Metabolic Panel Sent. kj1 09:56 CBC with Diff Sent. kj1 09:56 LFT's Sent. kj1 09:56 Magnesium Sent. kj1 09:56 NT PRO-BNP Sent. kj1 09:56 PT-INR Sent. kj1 09:57 Troponin (emerg Dept Use Only) Sent. kj1 10:08 Patient has correct armband on for positive identification. Placed in gown. Bed in low zb position. Call light in reach. Side rails up X 1. Adult w/ patient. Door closed. Noise minimized. Warm blanket given. Pillow given. Head of bed elevated. 10:58 Chest Single View In Process Unspecified. EDMS 11:15 US Extremity Venous W Compression Aramis In Process Unspecified. EDMS 12:22 Navi Marx MD is Referral Physician. wei 13:09 No provider procedures requiring assistance completed. IV discontinued, intact, zb bleeding controlled, No redness/swelling at site. Pressure dressing applied. Administered Medications: 09:40 Drug: NS 0.9% 1000 ml Route: IV; Rate: 75 ml/hr; Site: left forearm; zb 13:09 Follow up: Response: No adverse reaction; IV Status: Completed infusion; IV Intake: ph 150ml 10:00 Drug: Benadryl 25 mg Route: IVP; Site: right forearm; zb 11:15 Follow up: Response: No adverse reaction zb 10:01 Drug: Pepcid 20 mg Route: IVP; Site: right forearm; zb 11:15 Follow up: Response: No adverse reaction zb 11:15 Drug: Magnesium Sulfate 1 grams Route: IVPB; Infused Over: 1 hrs; Site: right forearm; zb 12:30 Follow up: Response: No adverse reaction; IV Status: Completed infusion ph Intake: 13:09 IV: 150ml; Total: 150ml. ph Outcome: 12:24 Discharge ordered by . wei 13:09 Patient left the ED. ph 13:09 Discharged to home via ambulance, with family. zb 13:09 Condition: good 13:09 Discharge instructions given to patient, family, Instructed on discharge instructions, follow up and referral plans. medication usage, Demonstrated understanding of instructions, follow-up care, medications, Prescriptions given X 2. Signatures: Dispatcher [employer] EDMS Ivan Sen MD MD cha Calderon, Audri RN RN [email or web address] Hilary Henderson RN RN ph Peltier, Brian, RN RN bp Garcia, Jessica j6 Ritu Polo ag5 Tamela Colvin kj1 Eve Schultz RN RN zb Corrections: (The following items were deleted from the chart) 08:46 08:15 Chief complaint: aa5 aa5 10:33 08:44 Pain: Denies pain. zb zb 10:33 08:44 Cardiovascular: Reports shortness of breath, Denies nausea, palpitations, zb Capillary refill < 3 seconds Edema is 2+ to left ankle, left foot, left toes, right ankle, right foot and right toes and left leg and right leg zb 10:46 09:14 In radiology for Chest Single View+RAD.RAD.BRZ. EDHI EDMS 10:46 10:15 In radiology for Chest Single View+RAD.RAD.BRZ. EDMS EDMS 13: 13:20 Discharge instructions given to patient, family, Instructed on discharge zb instructions, follow up and referral plans. medication usage, Demonstrated understanding of instructions, follow-up care, medications, Prescriptions given X 2, zb 13:20 Condition: good zb zb 13:20 Discharged to home via ambulance, with family, zb zb
[2020-05-28 12:36] LABS: Arterial Blood Carboxyhemoglob 1.3 % (0-1.5)
[2020-05-28 14:29] VITALS: TEMP 98.4
[2020-05-28 14:33] VITALS: BP 113/62; O2SAT 93
--- NOTE | 2020-05-29 07:26 | EKG ---
Test Date: 2020-05-28 Test Time: 11:29:56 Box Sealing Inspector: TOBY MEASUREMENT RESULTS: Intervals: Rate: 99 ND: 134 QRSD: 74 QT: 348 QTc: 446 [place]: P: 55 ND: 134 QRS: 10 T: 45 INTERPRETIVE STATEMENTS: Normal sinus rhythm Cannot rule out Anterior infarct, age undetermined Abnormal ECG Compared to ECG 04/30/2020 12:45:23 Sinus tachycardia no longer present Myocardial infarct finding still present Electronically Signed On 05-29-20 07:24:30 [employer] GRADING SUPERVISOR by Ambrocio Jiménez
== END 2020-05-28 13:09 | disposition home or self-care (01) ==
LOC: ER 08:06
DX: R06.02 Shortness of breath (principal); Z86.19 Personal history of other infectious and parasitic diseases; L30.9 Dermatitis, unspecified; D64.9 Anemia, unspecified; E10.9 Type 1 diabetes mellitus without complications; E66.9 Obesity, unspecified; Z88.5 Allergy status to narcotic agent
CPT/HCPCS: 36415; 71045; 71275; 80048; 80076; 82565; 82805; 83735; 83880; 84484; 85025; 85610; 93005; 93970; 96361; 96365; 96375; 99284; J1200; J3475; J7030; Q9967

== ENCOUNTER 2020-05-29 09:08 | Inpatient (IN) | payer SELFPAY ==
[2020-05-29] MEDS ORDERED: AZITHROMYCIN IV 500 MG in NA CHLORIDE 0.9% 250 ML IVPB ONE (10:00)
[2020-05-29] MEDS ORDERED: ONDANSETRON 4 MG/2 ML VIAL ONE (10:05)
--- NOTE | 2020-05-29 10:10 | RAD REPORT ---
EXAM DESCRIPTION: RAD - Chest Single View - 05/29/2020 10:01 am CLINICAL HISTORY: DYSPNEA Chest pain. COMPARISON: Chest Single View dated 05/28/2020; Chest Single View dated 05/28/2020 FINDINGS: Portable technique limits examination quality. Moderate bilateral pulmonary opacities are present, mildly progressive since yesterday's study. The f indings probably indicate viral bronchitis. The heart is normal in size. No displaced fractures. IMPRESSION: Mild worsening in lung aeration is seen since yesterday's study.
[2020-05-29] MEDS ORDERED: IPRATROPIUM BROM 0.5MG/2.5ML ONE (10:14)
[2020-05-29] MEDS ORDERED: dexAMETHasone 4 MG/ML VIAL ONE (10:14)
[2020-05-29] MEDS ORDERED: FUROSEMIDE 20 MG/ 2ML VIAL ONE (10:14)
[2020-05-29] MEDS ORDERED: LEVALBUTEROL 1.25 MG/3 ML NEB ONE (10:14)
[2020-05-29] MEDS ORDERED: NA CHLORIDE 0.9% 1,000 ML ONE (10:15)
[2020-05-29 10:34] LABS: Absolute Lymphocytes (CBC) 0.7 K/uL (0.7-4.9); Basophils % 0.4 % (0-1.3); Hematocrit 30.1 % (36.0-45.0); MPV 8.3 fL (7.6-11.3)
[2020-05-29 10:37] LABS: Protime INR 2.39
[2020-05-29 10:50] LABS: ALT/SGPT 16 U/L (12-78); AST/SGOT 19 U/L (15-37); Albumin 2.5 g/dL (3.4-5.0); Alkaline Phosphatase 119 U/L (45-117); BUN Blood Urea Nitrogen 9 mg/dL (7-18); Bicarbonate 24 mmol/L (21-32); Bilirubin Direct 0.1 mg/dL (0-0.2); Bilirubin Total 0.6 mg/dL (0.2-1.0); Glucose Level 200 mg/dL (74-106); Magnesium 1.9 mg/dL (1.8-2.4); NT PRO-BNP 703 pg/mL (<125); Potassium 4.2 mmol/L (3.5-5.1); Protein, Total 7.1 g/dL (6.4-8.2); Sodium Level 142 mmol/L (136-145); Troponin (Emerg Dept Use Only) < 0.02 ng/mL (0.0-0.045)
[2020-05-29 11:13] LABS: Platelet Estimate ADEQ; White Blood Cell Scan OK (OK)
[2020-05-29 11:14] LABS: Blood Morphology Comment NOT SEEN (NOT SEEN)
--- NOTE | 2020-05-29 11:14 | EDPHYS ---
Physician Documentation [facility] Name: Ning Kirk Age: 54 yrs Sex: Female : 1965 Arrival Date: 05/29/2020 Time: 09:08 Bed 23 Private MD: ED Physician Ivan Sen HPI: 05/29 10:53 This 54 yrs old Black Female presents to ER via EMS with complaints of sob and nausea wei and vomiting. 10:53 The patient has shortness of breath with light activity. Onset: The symptoms/episode wei began/occurred 1 day(s) ago. Duration: The symptoms are continuous, and are steadily getting worse. The patient's shortness of breath has no apparent modifying factors. The patient presents to the emergency department with nausea, vomiting, that is intermittent. Possible causes: unknown. The symptoms are aggravated by nothing. The symptoms are alleviated by nothing. weak, sob and nauseated, gloria 91 % on room air. Historical: - Allergies: 09:13 tramadol; em - PMHx: 09:13 Diabetes - NIDDM; pulmonary embolism; em - PSHx: 09:13 None; em - Immunization history:: Adult Immunizations up to date. - Social history:: Smoking status: Patient denies any tobacco usage or history of. - Family history:: not pertinent. ROS: 10:53 Constitutional: Negative for fever, chills, and weight loss, Eyes: Negative for injury, wei pain, redness, and discharge, ENT: Negative for injury, pain, and discharge, Neck: Negative for injury, pain, and swelling, Cardiovascular: Negative for chest pain, palpitations, and edema, Back: Negative for injury and pain, : Negative for injury, bleeding, discharge, and swelling, MS/Extremity: Negative for injury and deformity, Skin: Negative for injury, rash, and discoloration, Neuro: Negative for headache, weakness, numbness, tingling, and seizure, Psych: Negative for depression, anxiety, suicide ideation, homicidal ideation, and hallucinations, Allergy/Immunology: Negative for hives, rash, and allergies, Endocrine: Negative for neck swelling, polydipsia, polyuria, polyphagia, and marked weight changes, Hematologic/Lymphatic: Negative for swollen nodes, abnormal bleeding, and unusual bruising. 10:53 Respiratory: Positive for cough, with no reported sputum, dyspnea on exertion, shortness of breath, at rest. 10:53 Abdomen/GI: Positive for nausea and vomiting. 10:53 MS/extremity: Positive for swelling. Exam: 10:53 Constitutional: This is a well developed, well nourished patient who is awake, alert, wei and in no acute distress. Head/Face: Normocephalic, atraumatic. Eyes: Pupils equal round and reactive to light, extra-ocular motions intact. Lids and lashes normal. Conjunctiva and sclera are non-icteric and not injected. Cornea within normal limits. Periorbital areas with no swelling, redness, or edema. ENT: Nares patent. No nasal discharge, no septal abnormalities noted. Tympanic membranes are normal and external auditory canals are clear. Oropharynx with no redness, swelling, or masses, exudates, or evidence of obstruction, uvula midline. Mucous membranes moist. Neck: Trachea midline, no thyromegaly or masses palpated, and no cervical lymphadenopathy. Supple, full range of motion without nuchal rigidity, or vertebral point tenderness. No Meningismus. Chest/axilla: Normal chest wall appearance and motion. Nontender with no deformity. No lesions are appreciated. Abdomen/GI: Soft, non-tender, with normal bowel sounds. No distension or tympany. No guarding or rebound. No evidence of tenderness throughout. Back: No spinal tenderness. No costovertebral tenderness. Full range of motion. Female : Normal external genitalia. Skin: Warm, dry with normal turgor. Normal color with no rashes, no lesions, and no evidence of cellulitis. MS/ Extremity: Pulses equal, no cyanosis. Neurovascular intact. Full, normal range of motion. Neuro: Awake and alert, GCS 15, oriented to person, place, time, and situation. Cranial nerves II-XII grossly intact. Motor strength 5/5 in all extremities. Sensory grossly intact. Cerebellar exam normal. Normal gait. Psych: Awake, alert, with orientation to person, place and time. Behavior, mood, and affect are within normal limits. 10:53 Cardiovascular: Rate: tachycardic, Rhythm: regular, Pulses: Pulses are 4+ in bilateral radial, brachial, femoral, popliteal, posterior tibial and and dorsalis pedis arteries.. 10:53 Respiratory: mild respiratory distress is noted, Respirations: labored breathing, that is mild, Breath sounds: bronchial sounds, decreased breath sounds, rhonchi, Respiratory rate: sob, worse since yesterday, 91 sats, nausea worse 11:08 ECG was reviewed by the Attending Physician. [facility] Vital Signs: 09:09 BP 127 / 74; Pulse 109; Resp 20; Temp 98.5; Pulse Ox 95% on R/A; Pain 0/10; em 10:00 BP 148 / 82; Pulse 84; Resp 20; Pulse Ox 98% on 2 lpm NC; zb 11:00 BP 128 / 79; Pulse 100; Resp 18; Pulse Ox 100% on R/A; zb 12:59 BP 137 / 88; Pulse 96; Resp 18; Pulse Ox 100% on 4 lpm NC; em MDM: 09:08 Patient medically screened. [facility] 11:04 Differential diagnosis: Anemia Bronchitis CHF exacerbation, Chronic Obstructive wei Pulmonary Disease Nonspecific abd pain, pancreatitis, diverticulitis, viral gastroenteritis, pneumonia, pulmonary edema, Pulmonary Embolism reactive airway disease, Sepsis. Antibiotic administration: Zithromax is given. Differential Diagnosis sepsis, flu. The patient's Wells Deep Vein Thrombosis Score was calculated as follows: Imm/Surg in last 4 wks (1.5 Pts) Previous DVT/PE (1.5 Pts) Total Score: 3-6 Pts - Mod Risk. The patient's pulmonary embolism risk score was calculated as follows: the patients heart rate is greater than 100 beats per minute (1.5 Pts) patient has experienced immobilization or surgery in the last four weeks (1.5 Pts) the patient has a history of a previous deep vein thrombosis or pulmonary embolism (1.5 Pts) Total Score: 3-6 points. This patient was found to be at moderate risk for a pulmonary embolism by using the Well's assessment criteria. Immunization status: Influenza vaccine: Data reviewed: vital signs, nurses notes, lab test result(s), EKG, radiologic studies, plain films. Data interpreted: campus monitor: rate is 109 beats/min, rhythm is regular, Pulse oximetry: on room air is 91 %. Test interpretation: by ED physician or midlevel provider: ECG, plain radiologic studies. 05/29 09:10 Order name: Basic Metabolic Panel [facility] 05/29 09:10 Order name: CBC with Diff [facility] 05/29 09: Order name: LFT's [facility] 11/11 09:10 Order name: Magnesium [facility] 05/29 09:10 Order name: NT PRO-BNP [facility] 05/29 09:10 Order name: PT-INR; Complete Time: 10:51 [facility] 05/29 09:10 Order name: Troponin (emerg Dept Use Only) [facility] 05/29 09:10 Order name: Blood Culture Adult (2) [facility] 05/29 09:11 Order name: Basic Metabolic Panel [facility] 05/29 09:11 Order name: CBC with Automated Diff [facility] 05/29 10:39 Order name: CBC Smear Scan [facility] 05/29 12:39 Order name: COVID-19 hb 05/29 13:19 Order name: Procalcitonin [facility] 05/29 13:28 Order name: CORONAVIRUS [facility] 05/29 09:10 Order name: XRAY Chest (1 view); Complete Time: 10:51 [facility] 05/29 09:10 Order name: EKG; Complete Time: 09:11 [facility] 05/29 09:10 Order name: Cardiac monitoring; Complete Time: 11:31 [facility] 05/29 09:10 Order name: EKG - Nurse/Tech; Complete Time: 10:42 [facility] 05/29 09:10 Order name: IV Saline Lock; Complete Time: 10:42 [facility] 05/29 09:10 Order name: Labs collected and sent; Complete Time: 11:34 [facility] 05/29 09:10 Order name: O2 Per Protocol; Complete Time: 10:42 [facility] 05/29 09:10 Order name: O2 Sat Monitoring; Complete Time: 10:42 [facility] 05/29 14:32 Order name: SARS-COV-2 RT PCR [facility] 05/29 11:47 Order name: Labs - recollect needed: recollect 2nd set of blood cultures, was not bd labled.; Complete Time: 13:03 EC:08 Rate is 78 beats/min. Rhythm is regular. QRS [place] is Normal. GA interval is normal. QRS wei interval is normal. QT interval is normal. No Q waves. T waves are Normal. No ST changes noted. Clinical impression: NSR w/ Non-specific ST/T Changes and No evidence of ischemia. Interpreted by me. Reviewed by me. Administered Medications: 09:30 Drug: Zofran (Ondansetron) 2 mg Route: IVP; Site: right antecubital; zb 10:41 Drug: Xopenex 1.25 mg Route: Inhalation; ph 10:41 Drug: AtroVENT Aerosol 0.5 mg Route: Inhalation; ph 10:41 Drug: Decadron - Dexamethasone 6 mg Route: IVP; Site: right antecubital; ph 10:42 Drug: NS 0.9% 1000 ml Route: IV; Rate: 75 ml/hr; Site: right antecubital; ph 10:42 Drug: Zithromax 500 mg Route: IVPB; Infused Over: 1 hrs; Site: right antecubital; ph 10:42 Drug: Lasix 20 mg Route: IVP; Site: right antecubital; ph Disposition: 05/29/20 11:13 Hospitalization ordered by Eldon Garcia for Inpatient Admission. Preliminary diagnosis are Dyspnea, Viral pneumonia, unspecified - COVID 19, Obesity, unspecified, Hypoxemia, Nausea and vomiting, Type 2 diabetes mellitus. - Bed requested for Intensive Care Unit. - Status is Inpatient Admission. - Condition is Fair. - Problem is new. - Symptoms have improved. Signatures: Dispatcher [employer] EDYoselin Cee Kimberly, RN RN kl Anderson, Corey, MD MD cha Munoz, Edgar, RN RN em Hall, Patricia, RN RN ph Brown, Zipporah, RN RN zb Corrections: (The following items were deleted from the chart) 13:41 11:13 Hospitalization Ordered by Eldon Garcia MD for Inpatient Admission. Preliminary bd diagnosis is Dyspnea; Viral pneumonia, unspecified - COVID 19; Obesity, unspecified; Hypoxemia; Nausea and vomiting; Type 2 diabetes mellitus. Bed requested for Telemetry/MedSurg (Inpatient). Status is Inpatient Admission. Condition is Fair. Problem is new. Symptoms have improved. wei 14:51 13:41 05/29/2020 11:13 Hospitalization Ordered by Eldon Garcia MD for Inpatient bd Admission. Preliminary diagnosis is Dyspnea; Viral pneumonia, unspecified - COVID 19; Obesity, unspecified; Hypoxemia; Nausea and vomiting; Type 2 diabetes mellitus. Bed requested for [facility] ER HOLD. Status is Inpatient Admission. Condition is Fair. Problem is new. Symptoms have improved. bd 15:42 14:51 05/29/2020 11:13 Hospitalization Ordered by Eldon Garcia MD for Inpatient kl Admission. Preliminary diagnosis is Dyspnea; Viral pneumonia, unspecified - COVID 19; Obesity, unspecified; Hypoxemia; Nausea and vomiting; Type 2 diabetes mellitus. Bed requested for Intensive Care Unit. Status is Inpatient Admission. Condition is Fair. Problem is new. Symptoms have improved. bd
--- NOTE | 2020-05-29 11:14 | ER ---
Nurse's Notes [facility] Name: Ning Kirk Age: 54 yrs Sex: Female : 1965 Arrival Date: 05/29/2020 Time: 09:08 Bed 23 Private MD: Diagnosis: Dyspnea;Viral pneumonia, unspecified-COVID 19;Obesity, unspecified;Hypoxemia;Nausea and vomiting;Type 2 diabetes mellitus Presentation: 05/29 09:09 Chief complaint: EMS states: called out for shortness of breath, was on 2 L sat at 91%, em turned O2 to 4 LPM sats went to 95%, also reports N/V since taking Pepcid and Benadryl, denies chest pain, was here yesterday. Coronavirus screen: Client denies travel out of the [place] in the last 14 days. shortness of breath. Ebola Screen: Patient negative for fever greater than or equal to 101.5 degrees Fahrenheit, and additional compatible Ebola Virus Disease symptoms Patient denies exposure to infectious person. Patient denies travel to an Ebola-affected area in the 21 days before illness onset. No symptoms or risks identified at this time. Initial Sepsis Screen: Does the patient meet any 2 criteria? HR > 90 bpm. No. Patient's initial sepsis screen is negative. Does the patient have a suspected source of infection? No. Patient's initial sepsis screen is negative. Risk Assessment: Do you want to hurt yourself or someone else? Patient reports no desire to harm self or others. Onset of symptoms was May 29, 2020. 09:09 Method Of Arrival: EMS: [facility] em 09:09 Acuity: HERACLIO 3 em Historical: - Allergies: 09:13 tramadol; em - PMHx: 09:13 Diabetes - NIDDM; pulmonary embolism; em - PSHx: 09:13 None; em - Immunization history:: Adult Immunizations up to date. - Social history:: Smoking status: Patient denies any tobacco usage or history of. - Family history:: not pertinent. Screenin:13 Abuse screen: Denies threats or abuse. Nutritional screening: No deficits noted. em Tuberculosis screening: No symptoms or risk factors identified. Fall Risk None identified. Assessment: 09:10 General: Appears in no apparent distress. uncomfortable, Behavior is calm, cooperative, em appropriate for age, Denies fever. Pain: Denies pain. Neuro: Level of Consciousness is awake, alert, obeys commands, Oriented to person, place, time, situation, Appropriate for age. Cardiovascular: Reports shortness of breath, Capillary refill < 3 seconds Patient's skin is warm and dry. Chest pain is denied. Respiratory: Reports shortness of breath at rest Airway is patent Respiratory effort is even, unlabored, Respiratory pattern is regular, symmetrical, Breath sounds are clear bilaterally. GI: Abdomen is round non-distended, Reports nausea, vomiting. Derm: Skin is intact, is healthy with good turgor, Skin is pink, warm \T\ dry. Musculoskeletal: Capillary refill < 3 seconds, Range of motion: intact in all extremities, Swelling present in right leg and left leg. 10:30 GI: Pt is actively vomiting vomited about 50ml. notified MD sen received verbal zb order for zofran 4mg IV. 11:12 Reassessment: Dr. Rodrigues at bedside. em 11:19 Reassessment: Patient appears in no apparent distress at this time. Patient and/or zb family updated on plan of care and expected duration. Pain level reassessed. Respiratory: Airway is patent Respiratory effort is even, unlabored, Respiratory pattern is regular, symmetrical. 11:52 Reassessment: Dr. Garcia at bedside. em 12:59 Reassessment: Patient appears in no apparent distress at this time. Patient and/or em family updated on plan of care and expected duration. Pain level reassessed. Patient is alert, oriented x 3, equal unlabored respirations, skin warm/dry/pink. Patient states feeling better. Vital Signs: 09:09 BP 127 / 74; Pulse 109; Resp 20; Temp 98.5; Pulse Ox 95% on R/A; Pain 0/10; em 10:00 BP 148 / 82; Pulse 84; Resp 20; Pulse Ox 98% on 2 lpm NC; zb 11:00 BP 128 / 79; Pulse 100; Resp 18; Pulse Ox 100% on R/A; zb 12:59 BP 137 / 88; Pulse 96; Resp 18; Pulse Ox 100% on 4 lpm NC; em ED Course: 09:08 Patient arrived in ED. wei 09:08 Ivan Sen MD is Attending Physician. wei 09:09 Maintain EMS IV. Dressing intact. Good blood return noted. Site clean \T\ dry. Gauge \T\ em site: 18 RAC. 09:11 Triage completed. em 09:13 Arm band placed on. em 09:13 Patient has correct armband on for positive identification. Placed in gown. Bed in low em position. Call light in reach. Side rails up X2. Pulse ox on. NIBP on. 09:26 Steve Palacio, RN is Primary Nurse. em 10:01 XRAY Chest (1 view) In Process Unspecified. EDMS 11:09 Eldon Garcia MD is Hospitalizing Provider. wei 15:14 No provider procedures requiring assistance completed. Patient admitted, IV remains in em place. Administered Medications: 09:30 Drug: Zofran (Ondansetron) 2 mg Route: IVP; Site: right antecubital; zb 10:41 Drug: Xopenex 1.25 mg Route: Inhalation; ph 10:41 Drug: AtroVENT Aerosol 0.5 mg Route: Inhalation; ph 10:41 Drug: Decadron - Dexamethasone 6 mg Route: IVP; Site: right antecubital; ph 10:42 Drug: NS 0.9% 1000 ml Route: IV; Rate: 75 ml/hr; Site: right antecubital; ph 10:42 Drug: Zithromax 500 mg Route: IVPB; Infused Over: 1 hrs; Site: right antecubital; ph 10:42 Drug: Lasix 20 mg Route: IVP; Site: right antecubital; ph Outcome: 11:13 Decision to Hospitalize by Provider. [facility] 14:00 Admitted to ER Hold. Please see [facility] for further documentation. em 14:00 Condition: improved 14:00 Instructed on the need for admit, Demonstrated understanding of instructions. 15:42 Patient left the ED. kl Signatures: Dispatcher [employer] EDMS Aide Louis RN RN kl Anderson, Corey, MD MD cha Munoz, Edgar, Hilary Andres RN, RN RN ph Brown, Zipporah, RN RN zb Corrections: (The following items were deleted from the chart) 11:25 10:30 GI: Pt is actively vomiting bile, zb zb
[2020-05-29] MEDS ORDERED: ONDANSETRON 4 MG/2 ML VIAL IV PRN (14:14)
--- NOTE | 2020-05-29 14:56 | P.HP ---
Certification for Inpatient Patient admitted to: Inpatient With expected LOS: >2 Midnights Practitioner: I am a practitioner with admitting privileges, knowledge of patient current condition, hospital course, and medical plan of care. Services: Services provided to patient in accordance with Admission requirements found in Title 42 Section 412.3 of the Code of Federal Regulations Patient History Date of Service: 05/29/20 Reason for admission: hypoxemia, COVID19 History of Present Illness: 54yo female with recent COVID hospitalization ~1 month ago, presents to ED due to 2-3 days of progressively worsening SOB. She presented to the ED with similar complaints yesterday but had some improvement and was discharged home. She then had some emesis that began yesterday around 7pm and has not been able to keep much down since. She denies any dysuria, denies constipation/diarrhea. She was otherwise feeling well up to 2-3 days ago. She also reports "completing" her coumadin 2 days ago, never followed up with a PCP, never scheduled appointment with Dr. Marx. Unclear how compliant she has been. Workup notable for no leukocytosis, hyperglycemia, normal renal function, mildly elevated BNP, negative pro calcitonin. Allergies tramadol Allergy (Unknown, Verified 04/30/20 15:51) Itching/Hives/Rash Home Medications: Alcohol Antiseptic Pads [[employer] Alcohol Prep Pad] 1 each TP TID #100 med..pad 05/12/20 Atorvastatin Calcium [Lipitor] 40 mg PO BEDTIME #30 tab 05/12/20 Blood Sugar Diagnostic [[employer] Test Strip] 1 each MC TID #100 strip 05/12/20 Blood-Glucose Meter [[employer] Glucose Monitoring] 1 each MC TID #1 kit 05/12/20 Cholecalciferol (Vitamin D3) [Vitamin D 1000 Iu Tab*] 2,000 unit PO DAILY #30 tab 05/12/20 Insulin 70/30 NPH/Reg Human [Novolin 70/30*] 25 unit SQ BIDAC #100 ml 05/12/20 Lancing Device [[employer] Ult Lancing Device] 1 each MC TID #100 each 05/12/20 Senosides [Senokot*] 17.2 mg PO BID #60 tab 05/12/20 Syringe-Needle,Insulin,0.5 ml [[employer] Insulin Syringe] 1 each MC TID #100 disp.syrin 05/12/20 Thiamine HCl [Vitamin B-1*] 200 mg PO DAILY #60 tablet 05/12/20 Warfarin Sodium [Coumadin*] 5 mg PO DAILY 5 PM #14 tab 05/12/20 predniSONE [Prednisone] 5 mg PO BID 05/29/20 - Past Medical/Surgical History -: CovID 19 pneumonia -: DM2, insulin dependent -: Pulmonary embolus Past Surgical History: Unable to obtain - Family History Family History: Reviewed- Non-Contributory (pt poor historian) - Social History Smoking Status: Never smoker Place of Residence: Home Review of Systems 10-point ROS is otherwise unremarkable Physical Examination - Physical Exam General: Alert, Oriented x2, Mild distress HEENT: Mucous membr. moist/pink, Sclerae nonicteric Respiratory: Diminished (at bases bilaterally) Cardiovascular: Regular rate/rhythm Gastrointestinal: Soft and benign, Non-distended, No tenderness Musculoskeletal: No tenderness Integumentary: No rashes Neurological: Normal speech, Normal affect - Studies Laboratory Data (last 24 hrs) 05/29/20 10:15: PT 27.7 H, INR 2.39 05/29/20 10:15: WBC 10.7, Hgb 10.0 L, Hct 30.1 L, Plt Count 334 05/29/20 10:15: Sodium 142, Potassium 4.2, BUN 9, Creatinine 0.60, Glucose 200 H, Magnesium 1.9 D, Total Bilirubin 0.6, AST 19, ALT 16, Alkaline Phosphatase 119 H Assessment and Plan - Advance Directives Does patient have a Living Will: No Does patient have a Durable POA for Healthcare: No Physician Review Additional Text: Hypoxemia, COVID19 pneumonia nausea/vomiting h/o PE DM2, insulin dependent admit to COVID unit CXR with worsening opactities compared to yesterday start Solumedrol 40q8hr trend CRP pt on 2L NC pulm consulted zofran for nausea continue home insulin, and sliding scale continue warfarin VTE: warfarin Dispo: anticipate dc home in ~48hrs pending improvement of symptoms Time Spent Managing Pts Care (In Minutes): 55
[2020-05-29] MEDS ORDERED: D50W 25 GM/50 ML SYRINGE IV PRN (16:34)
[2020-05-29] MEDS ORDERED: GLUCAGON 1 MG/VIAL IM PRN (16:34)
[2020-05-29 16:43] VITALS: BMI 38.9
[2020-05-29] MEDS ORDERED: WARFARIN SODIUM 5 MG TAB PO SCH (17:00)
[2020-05-29] MEDS: METHYLPREDNISOLONE 40 MG INJ IV SCH (17:09)
[2020-05-29] MEDS: INSULIN -REGULAR HUMAN 50 UNIT/0.5 ML ML SQ SCH ×2 (17:11→20:06)
[2020-05-29] MEDS: DIPHENHYDRAMINE 25 MG TAB/CAP PO PRN (17:15)
--- NOTE | 2020-05-29 18:04 | EKG ---
Test Date: 2020-05-29 Test Time: 09:59:48 Arborist: KIM MEASUREMENT RESULTS: Intervals: Rate: 78 ME: 134 QRSD: 76 QT: 392 QTc: 446 [place]: P: 55 ME: 134 QRS: 16 T: 40 INTERPRETIVE STATEMENTS: Sinus rhythm with marked sinus arrhythmia Low voltage QRS Borderline ECG Compared to ECG 05/28/2020 11:29:56 Low QRS voltage now present Myocardial infarct finding no longer present Electronically Signed On 05-29-20 18:02:37 MACHINIST HELPER MARINE by Ambrocio Jiménez
[2020-05-29] MEDS: ATORVASTATIN 40 MG TAB PO SCH (20:07)
[2020-05-29] MEDS: SENOSIDES 8.6 MG TAB PO SCH ×2 (20:09→21:00)
[2020-05-30] MEDS: METHYLPREDNISOLONE 40 MG INJ IV SCH ×3 (00:21→17:05)
[2020-05-30] MEDS: DIPHENHYDRAMINE 25 MG TAB/CAP PO PRN ×4 (00:31→19:23)
[2020-05-30 05:20] LABS: Basophils % 0.3 % (0-1.3); Lymphocytes % 11.3 % (15.3-44.8); MPV 8.4 fL (7.6-11.3); RBC Red Blood Cell Count 3.03 M/uL (3.86-4.86)
[2020-05-30 05:57] LABS: ALT/SGPT 13 U/L (12-78); AST/SGOT 10 U/L (15-37); Albumin 2.4 g/dL (3.4-5.0); Alkaline Phosphatase 96 U/L (45-117); BUN Blood Urea Nitrogen 16 mg/dL (7-18); Bicarbonate 28 mmol/L (21-32); Bilirubin Total 0.4 mg/dL (0.2-1.0); Glucose Level 308 mg/dL (74-106); Potassium 4.4 mmol/L (3.5-5.1); Protein, Total 6.5 g/dL (6.4-8.2); Sodium Level 138 mmol/L (136-145)
[2020-05-30 06:14] LABS: Protime INR 4.27
[2020-05-30] MEDS ORDERED: ACETAMINOPHEN 500 MG TAB PO PRN (08:15)
[2020-05-30] MEDS: VITAMIN D 1000 UNIT TAB PO SCH (08:22)
[2020-05-30] MEDS: THIAMINE HCL 100 MG TABLET PO SCH (08:22)
[2020-05-30] MEDS: SENOSIDES 8.6 MG TAB PO SCH ×2 (08:26→20:48)
[2020-05-30] MEDS: INSULIN -REGULAR HUMAN 50 UNIT/0.5 ML ML SQ SCH ×4 (08:26→20:47)
[2020-05-30] MEDS: INSULIN 70/30 100 UNITS/ML SQ SCH ×2 (09:27→17:05)
--- NOTE | 2020-05-30 16:51 | P.CNS ---
Date of Consult: 05/30/20 Reason for Consult: COVID penumonia Chief Complaint: hypoxemia, COVID19 History of Present Illness: 54 yr readmitted . Prev HXof PE and hyperglycemia. Came ack again with nausea. Complaint with meds .opn Insulin at home Pt has o2 at home. No other complaints. CXRY bilat ILD from COVID Allergies tramadol Allergy (Unknown, Verified 04/30/20 15:51) Itching/Hives/Rash Home Medications: Alcohol Antiseptic Pads [[employer] Alcohol Prep Pad] 1 each TP TID #100 med..pad 05/12/20 Atorvastatin Calcium [Lipitor] 40 mg PO BEDTIME #30 tab 05/12/20 Blood Sugar Diagnostic [[employer] Test Strip] 1 each MC TID #100 strip 05/12/20 Blood-Glucose Meter [[employer] Glucose Monitoring] 1 each MC TID #1 kit 05/12/20 Cholecalciferol (Vitamin D3) [Vitamin D 1000 Iu Tab*] 2,000 unit PO DAILY #30 tab 05/12/20 Insulin 70/30 NPH/Reg Human [Novolin 70/30*] 25 unit SQ BIDAC #100 ml 05/12/20 Lancing Device [[employer] Ult Lancing Device] 1 each MC TID #100 each 05/12/20 Senosides [Senokot*] 17.2 mg PO BID #60 tab 05/12/20 Syringe-Needle,Insulin,0.5 ml [[employer] Insulin Syringe] 1 each MC TID #100 disp.syrin 05/12/20 Thiamine HCl [Vitamin B-1*] 200 mg PO DAILY #60 tablet 05/12/20 Warfarin Sodium [Coumadin*] 5 mg PO DAILY 5 PM #14 tab 05/12/20 predniSONE [Prednisone] 5 mg PO BID 05/29/20 - Past Medical/Surgical History Diabetic: Yes -: CovID 19 pneumonia -: DM2, insulin dependent -: Pulmonary embolus -: tubal - Social History Alcohol use: No CD- Drugs: No Caffeine use: Yes Place of Residence: Home Review of Systems 10-point ROS is otherwise unremarkable General: Weakness Respiratory: Shortness of Breath Gastrointestinal: Nausea Physical Examination Temp Pulse Resp BP Pulse Ox 98.1 F 93 H 21 H 113/73 93 05/30/20 12:00 05/30/20 13:00 05/30/20 13:00 05/30/20 13:00 05/30/20 13:00 General: Alert, In no apparent distress, Oriented x3 Neck: Supple Respiratory: Clear to auscultation bilaterally Cardiovascular: No edema, Regular rate/rhythm Gastrointestinal: Soft and benign - Problems (1) Nausea & vomiting Current Visit: Yes Status: Acute Plan: Pt AW nausea and vomiting. DDX diabetic gastroparesis vs COVID symptoms.Now on insulin. O2 satifactory. VS and Oxygenation satisfactoryCRP less than 50 . Consider adding reglan and low dose pred . Hx of PE on coumadin Qualifiers: Vomiting Intractability: unspecified
[2020-05-30] MEDS ORDERED: METOCLOPRAMIDE 10MG/10ML UCUP PO PRN (16:55)
--- NOTE | 2020-05-30 18:10 | P.PN ---
Subjective Date of Service: 05/30/20 Chief Complaint: hypoxemia, COVID19 Subjective: No new changes (feeling about the same, SOB with movement, itching in lower legs, with some nausea) Review of Systems 10-point ROS is otherwise unremarkable Physical Examination - Vital Signs Temperature: 98.2 F Blood Pressure: 110/91 Pulse: 84 Respirations: 22 Pulse Ox (%): 96 - Physical Exam General: Alert, In no apparent distress HEENT: Sclerae nonicteric Respiratory: Other (Nonlabored) Cardiovascular: No edema, Regular rate/rhythm Gastrointestinal: Soft and benign, Non-distended, No tenderness Integumentary: No rashes Neurological: Normal speech, Normal affect Assessment & Plan Physician Review Additional Text: Hypoxemia, COVID19 pneumonia nausea/vomiting h/o PE DM2, insulin dependent Decrease Solumedrol 40q8hr to prednisone 10mg daily per pulm recommendations trend CRP - 50 -> 39 pt on 2L NC intermittently switch zofran to reglan for nausea continue home insulin, and sliding scale hold warfarin tonight, patient is supratherapeutic VTE: warfarin Dispo: anticipate dc home tomorrow, with home oxygen (patient already has set up) Time Spent Managing Pts Care (In Minutes): 35
[2020-05-30] MEDS ORDERED: PNEUMOCOCCAL VACCINE 0.5 ML IMVAC ONE (20:00)
[2020-05-30] MEDS: ATORVASTATIN 40 MG TAB PO SCH (20:47)
[2020-05-31] MEDS: DIPHENHYDRAMINE 25 MG TAB/CAP PO PRN ×3 (00:37→12:56)
[2020-05-31 04:19] LABS: BUN Blood Urea Nitrogen 21 mg/dL (7-18); Bicarbonate 30 mmol/L (21-32); Glucose Level 104 mg/dL (74-106); Potassium 4.1 mmol/L (3.5-5.1); Sodium Level 138 mmol/L (136-145)
[2020-05-31 04:30] LABS: Absolute Lymphocytes (CBC) 1.6 K/uL (0.7-4.9); Basophils % 0.8 % (0-1.3); Hematocrit 25.5 % (36.0-45.0); MPV 8.5 fL (7.6-11.3); RBC Red Blood Cell Count 2.98 M/uL (3.86-4.86)
[2020-05-31] MEDS: INSULIN -REGULAR HUMAN 50 UNIT/0.5 ML ML SQ SCH ×2 (07:30→11:30)
[2020-05-31 08:37] LABS: Protime INR 4.57
[2020-05-31 08:41] VITALS: O2SAT 98
[2020-05-31] MEDS ORDERED: predniSONE 10 MG TAB PO SCH (09:00)
[2020-05-31] MEDS: SENOSIDES 8.6 MG TAB PO SCH (09:00)
[2020-05-31] MEDS: INSULIN 70/30 100 UNITS/ML SQ SCH (09:04)
[2020-05-31] MEDS: THIAMINE HCL 100 MG TABLET PO SCH (09:04)
[2020-05-31] MEDS: VITAMIN D 1000 UNIT TAB PO SCH (09:05)
[2020-05-31 12:56] VITALS: BP 123/76; TEMP 97.1
--- NOTE | 2020-05-31 21:23 | P.DS ---
Admission Date: 05/29/20 Discharge Date: 05/31/20 Disposition: ROUTINE DISCHARGE Discharge Condition: GOOD Reason for Admission: hypoxemia, COVID19 Consultations: Pulmonology - Dr. Marx Procedures: CTA Chest (05/28): No evidence of pulmonary thromboembolism. Moderate bilateral interstitial lung opacities are present most compatible with interstitial pneumonia/ bronchitis. CXR (05/28): The lungs are underinflated with [id number] bilateral interstitial lung opacities present suggesting viral bronchitis. The heart is normal in size. No displaced fractures. CXR (05/29):Moderate bilateral pulmonary opacities are present, mildly progressive since yesterday's study. The findings probably indicate viral bronchitis. The heart is normal in size. No displaced fractures. Problem List Hypoxemia, COVID19 pneumonia nausea/vomiting h/o PE DM2, insulin dependent Brief History of Present Illness: 54yo female with recent COVID hospitalization ~1 month ago, presents to ED due to 2-3 days of progressively worsening SOB. She presented to the ED with similar complaints yesterday but had some improvement and was discharged home. She then had some emesis that began yesterday around 7pm and has not been able to keep much down since. She was otherwise feeling well up to 2-3 days ago. She also reports "completing" her coumadin 2 days ago, never followed up with a PCP, never scheduled appointment with Dr. Marx. Unclear how compliant she has been. Workup notable for no leukocytosis, hyperglycemia, normal renal function, mildly elevated BNP, negative pro calcitonin. Hospital Course: She was restarted on steroids, coumadin, and given reglan for her nausea. She has significant improvement in her symptoms. She was breathing comfortably on room air on day of discharge. She was tolerating her diabetic diet without emesis. Her CRP improved from 50.3 -> 13.3 Pulmonology was consulted. She was discharged on prednisone 10mg daily, reglan, and adjustments to her coumadin were made due to supratherapeutic INRs on day 2 and 3 of hospitalization (2.39 -> 4.27 -> 4.57). Her coumadin was held on 05/30. She is advised to take 5mg on -, all other days to take 2.5mg. She will restart in 3 days (Wednesday, 06/03). She was discharged home where she already has home oxygen set up. Vital Signs/Physical Exam: Temp Pulse Resp BP Pulse Ox 97.1 F 74 17 123/76 97 05/31/20 12:00 05/31/20 12:00 05/31/20 12:00 05/31/20 12:00 05/31/20 12:00 General: In no apparent distress, Oriented x3 HEENT: Sclerae nonicteric Respiratory: Other (non-labored respirations on RA) Cardiovascular: No edema, Regular rate/rhythm Gastrointestinal: Soft and benign, Non-distended, No tenderness Musculoskeletal: No tenderness Integumentary: No rashes Neurological: Normal speech, Normal affect Laboratory Data at Discharge: WBC 14.1 K/uL (4.3-10.9) H D 05/31/20 03:41 Hgb 8.3 g/dL (12.0-15.0) L 05/31/20 03:41 Hct 25.5 % (36.0-45.0) L 05/31/20 03:41 Plt Count 387 K/uL (152-406) 05/31/20 03:41 PT 52.3 SECONDS (9.5-12.5) H 05/31/20 07:40 INR 4.57 H* 05/31/20 07:40 Sodium 138 mmol/L (136-145) 05/31/20 03:41 Potassium 4.1 mmol/L (3.5-5.1) 05/31/20 03:41 BUN 21 mg/dL (7-18) H 05/31/20 03:41 Creatinine 0.68 mg/dL (0.55-1.3) 05/31/20 03:41 Glucose 104 mg/dL (74-106) 05/31/20 03:41 Magnesium 2.0 mg/dL (1.8-2.4) 05/31/20 03:41 Total Bilirubin 0.4 mg/dL (0.2-1.0) 05/30/20 04:45 AST 10 U/L (15-37) L 05/30/20 04:45 ALT 13 U/L (12-78) 05/30/20 04:45 Alkaline Phosphatase 96 U/L (45-117) 05/30/20 04:45 Home Medications: Alcohol Antiseptic Pads [C[employer] Alcohol Prep Pad] 1 each TP TID #100 med..pad 05/12/20 Atorvastatin Calcium [Lipitor] 40 mg PO BEDTIME #30 tab 05/12/20 Blood Sugar Diagnostic [[employer] Test Strip] 1 each MC TID #100 strip 05/12/20 Blood-Glucose Meter [[employer] Glucose Monitoring] 1 each MC TID #1 kit 05/12/20 Cholecalciferol (Vitamin D3) [Vitamin D 1000 Iu Tab*] 2,000 unit PO DAILY #30 tab 05/12/20 Insulin 70/30 NPH/Reg Human [Novolin 7030*] 25 unit SQ BIDAC #100 ml 05/12/20 Lancing Device [Tangible Play Ult Lancing Device] 1 each MC TID #100 each 05/12/20 Senosides [Senokot*] 17.2 mg PO BID #60 tab 05/12/20 Syringe-Needle,Insulin,0.5 ml [CareeyeOS Insulin Syringe] 1 each MC TID #100 disp.syrin 05/12/20 Thiamine HCl [Vitamin B-1*] 200 mg PO DAILY #60 tablet 05/12/20 Metoclopramide HCl [Reglan] 5 mg PO Q8HR PRN 14 Days #40 tablet 05/31/20 Warfarin Sodium 2.5 mg PO SEECOM 30 Days #60 tablet 05/31/20 predniSONE [Deltasone*] 10 mg PO DAILY 14 Days #14 tab 05/31/20 New Medications: Metoclopramide HCl [Reglan] 5 mg PO Q8HR PRN 14 Days #40 tablet PRN Reason: Nausea / Vomiting predniSONE [Deltasone*] 10 mg PO DAILY 14 Days #14 tab Warfarin Sodium 2.5 mg PO SEECOM 30 Days #60 tablet Patient Discharge Instructions: follow up with Dr. Marx next week, call to schedule appointment. you will need monitoring of your blood thinner -- use your home oxygen as needed. Warfarin (coumadin) (blood thinner), restart taking on Sunday 06/03. Take 5mg on Wednesday, Wednesday, and Fridays, take 2.5mg all other days. Diet: ADA Activity: Ad nito Followup: Unknown,U [Primary Care Provider] - Time spent managing pt's care (in minutes): 35
== END 2020-05-31 14:45 | disposition home or self-care (01) | DRG 177 ==
LOC: ER 09:08 → ERHOLD 12:34 → 3RD-ICU 15:00
PROVIDERS: ADMIT Hospitalist; ATTEND Hospitalist
DX: U07.1 COVID-19 (principal); J12.89 Other viral pneumonia; E11.65 Type 2 diabetes mellitus with hyperglycemia; Z88.5 Allergy status to narcotic agent; Z86.711 Personal history of pulmonary embolism; Z79.4 Long term (current) use of insulin; Z79.01 Long term (current) use of anticoagulants; Z79.52 Long term (current) use of systemic steroids; Z99.81 Dependence on supplemental oxygen; Z98.51 Tubal ligation status
CPT/HCPCS: 36415; 71045; 80048; 80053; 80076; 82728; 82947; 83735; 83880; 84145; 84484; 85025; 85610; 86140; 87040; 93005; 94760; 96374; 96375; 99285; J0456; J1100; J1815; J1940; J2405; J2920; J7030; J7050; J7512; U0003

== ENCOUNTER 2021-12-04 04:46 | Emergency (ER) | payer SELFPAY ==
[2021-12-04] MEDS ORDERED: FAMOTIDINE 20 MG/2 ML VIAL IV ONE (05:37)
[2021-12-04] MEDS ORDERED: PROMETHAZINE INJ 25 MG/ML AMP ONE (05:37)
[2021-12-04 06:02] LABS: Albumin 3.6 g/dL (3.4-5.0); Bilirubin Total 0.5 mg/dL (0.2-1.0); Potassium 3.7 mmol/L (3.5-5.1); Protein, Total 8.5 g/dL (6.4-8.2)
--- NOTE | 2021-12-04 07:38 | ER ---
Nurse's Notes [facility] Name: Ning Kirk Age: 56 yrs Sex: Female : 1965 Arrival Date: 12/04/2021 Time: 04:48 Bed 5 Private MD: Diagnosis: Vomiting;Other cholelithiasis without obstruction;Type 1 diabetes mellitus with hypoglycemia;Obesity, unspecified Presentation: 12/04 05:01 Chief complaint: EMS states: Pt reports N/V, denies pain and Diarrhea. Reports jb4 epigastric pain upon palpation. Given 4mg of Zofran and NS bolus. BGL 334. Coronavirus screen: At this time, the client does not indicate any symptoms associated with coronavirus-19. Ebola Screen: No symptoms or risks identified at this time. Initial Sepsis Screen: Does the patient meet any 2 criteria? No. Patient's initial sepsis screen is negative. Does the patient have a suspected source of infection? No. Patient's initial sepsis screen is negative. Risk Assessment: Do you want to hurt yourself or someone else? Patient reports no desire to harm self or others. Onset of symptoms was December 04, 2021. Transition of care: patient was not received from another setting of care. 05:01 Method Of Arrival: EMS: [facility] jb4 05:01 Acuity: HERACLIO 3 jb4 Historical: - Allergies: 05:04 tramadol; jb4 - PMHx: 05:04 Diabetes - IDDM; Pulmonary Embolism; HTN; jb4 - PSHx: 05:04 None; jb4 - Immunization history:: Adult Immunizations up to date. - Social history:: Smoking status: Patient denies any tobacco usage or history of. - Family history:: not pertinent. - Hospitalizations: : No recent hospitalization is reported. Assessment: 05:00 General: Appears in no apparent distress. uncomfortable, Behavior is calm, cooperative, jb4 appropriate for age. Pain: Denies pain. Neuro: Level of Consciousness is awake, alert, obeys commands, Oriented to person, place, time, situation. Cardiovascular: Patient's skin is warm and dry. Respiratory: Airway is patent Respiratory effort is even, unlabored, Respiratory pattern is regular, symmetrical. GI: Abdomen is non-distended, obese, Reports nausea, vomiting. : No signs and/or symptoms were reported regarding the genitourinary system. EENT: No signs and/or symptoms were reported regarding the EENT system. Derm: Skin is intact, Skin is dry, Skin is normal, Skin temperature is warm. Musculoskeletal: Circulation, motion, and sensation intact. Range of motion: intact in all extremities. 06:00 Reassessment: Patient appears in no apparent distress at this time. Patient and/or jb4 family updated on plan of care and expected duration. Pain level reassessed. Patient is alert, oriented x 3, equal unlabored respirations, skin warm/dry/pink. Patient states feeling better. 07:30 Reassessment: Patient and/or family updated on plan of care and expected duration. Pain jh6 level reassessed. Patient is alert, oriented x 3, equal unlabored respirations, skin warm/dry/pink. pt states that she has episodes of nausea but rt now is feeling better Patient denies pain at this time. Patient states symptoms have improved. Vital Signs: 05:01 BP 162 / 96; Pulse 69; Resp 16; Temp 97.5(TE); Pulse Ox 100% on R/A; Weight 106.59 kg jb4 (R); Height 5 ft. 2 in. (157.48 cm) (R); 06:07 BP 167 / 83; Pulse 63; Resp 17; Pulse Ox 99% on R/A; jb4 07:52 BP 155 / 85; Pulse 65; Resp 17; Temp 97.6(O); Pulse Ox 100% ; Pain 0/10; jh6 05:01 Body Mass Index 42.98 (106.59 kg, 157.48 cm) [facility] ED Course: 04:48 Patient arrived in ED. rn 04:48 Dm Garcia MD is Attending Physician. rn 04:58 Bo Pedro, RN is Primary Nurse. jb4 05:04 Triage completed. jb4 05:04 Arm band placed on right wrist. jb4 06:31 CT Abd/Pelvis - IV Contrast Only In Process Unspecified. EDMS 07:24 Attending Physician role handed off by Dm Garcia MD wei 07:24 Ivan Sen MD is Attending Physician. wei 07:31 Navi Marx MD is Referral Physician. wei 07:31 Bo Sanchez MD is Referral Physician. wei 07:53 IV discontinued, intact, bleeding controlled, No redness/swelling at site. Pressure jh6 dressing applied. Administered Medications: 05:06 Drug: NS 0.9% 1000 ml Route: IV; Rate: 1 bolus; Site: right antecubital; jb4 05:30 Not Given (Duplicate Order): Zofran (Ondansetron) 4 mg IVP once; over 2 minutes rn 05:42 Drug: Pepcid (famotidine) 20 mg Route: IVP; Site: right forearm; jb4 05:42 Drug: Phenergan (promethazine) 12.5 mg Route: IVP; Site: right forearm; jb4 07:54 Follow up: Response: Nausea is decreased 6 Outcome: 07:37 Discharge ordered by MD. carvajal 07:53 Discharged to home ambulatory. [facility] 07:53 Condition: improved 07:53 Discharge instructions given to patient, Instructed on discharge instructions, Demonstrated understanding of instructions, follow-up care, medications, Prescriptions given X 2. 07:54 Patient left the ED. 6 Signatures: Dispatcher [employer] EDMS Ivan Sen MD MD cha Nieto, Roman, MD MD rn Bryson, James RN RN jb4 Faye Bourne RN RN jh6
--- NOTE | 2021-12-04 07:38 | EDPHYS ---
Physician Documentation [facility] Name: Ning Kirk Age: 56 yrs Sex: Female : 1965 Arrival Date: 12/04/2021 Time: 04:48 Bed 5 Private MD: ED Physician Ivan Sen HPI: 12/04 05:04 This 56 yrs old Black Female presents to ER via Unassigned with complaints of rn nausea/vomiting. 05:04 The patient presents to the emergency department with nausea, vomiting. Onset: The rn symptoms/episode began/occurred 3 day(s) ago. Possible causes: unknown. The symptoms are aggravated by nothing. The symptoms are alleviated by nothing. Associated signs and symptoms: Pertinent positives: nausea, vomiting, Pertinent negatives: abdominal pain, diarrhea, fever, GI bleeding. Severity of symptoms: At their worst the symptoms were moderate in the emergency department the symptoms are unchanged. The patient has not experienced similar symptoms in the past. The patient has not recently seen a physician. Pt reports nausea/vomiting for 3 days now, no focal abd pain, no headache, no chest pain, no sob. No fever. No GI bleed. Reports has not had bowel movement in a couple of days. NO trauma. . Historical: - Allergies: 05:04 tramadol; jb4 - PMHx: 05:04 Diabetes - IDDM; Pulmonary Embolism; HTN; jb4 - PSHx: 05:04 None; jb4 - Immunization history:: Adult Immunizations up to date. - Social history:: Smoking status: Patient denies any tobacco usage or history of. - Family history:: not pertinent. - Hospitalizations: : No recent hospitalization is reported. ROS: 05:04 Constitutional: Negative for fever, chills, and weight loss, Eyes: Negative for injury, rn pain, redness, and discharge, Neck: Negative for injury, pain, and swelling, Cardiovascular: Negative for chest pain, palpitations, and edema, Respiratory: Negative for shortness of breath, cough, wheezing, and pleuritic chest pain, Abdomen/GI: Negative for abdominal pain, diarrhea Back: Negative for injury and pain, : Negative for injury, bleeding, discharge, and swelling, MS/Extremity: Negative for injury and deformity, Skin: Negative for injury, rash, and discoloration, Neuro: Negative for headache, numbness, tingling, and seizure. Exam: 05:04 Constitutional: This is a well developed, well nourished patient who is awake, alert, rn and in no acute distress. Holding emesis bag with minimal contents Head/Face: Normocephalic, atraumatic. Eyes: Periorbital areas with no swelling, redness, or edema. ENT: dry MM Neck: Supple, No Meningismus. Cardiovascular: Regular rate and rhythm. No pulse deficits. Respiratory: No increased work of breathing, no retractions or nasal flaring. Abdomen/GI: Soft, non-tender Skin: Warm, dry MS/ Extremity: Pulses equal, no cyanosis. Neuro: Awake and alert, GCS 15, oriented to person, place, time, and situation. Cranial nerves II-XII grossly intact. Motor strength 5/5 in all extremities. Sensory grossly intact. Cerebellar exam normal. Vital Signs: 05:01 BP 162 / 96; Pulse 69; Resp 16; Temp 97.5(TE); Pulse Ox 100% on R/A; Weight 106.59 kg jb4 (R); Height 5 ft. 2 in. (157.48 cm) (R); 06:07 BP 167 / 83; Pulse 63; Resp 17; Pulse Ox 99% on R/A; jb4 07:52 BP 155 / 85; Pulse 65; Resp 17; Temp 97.6(O); Pulse Ox 100% ; Pain 0/10; jh6 05:01 Body Mass Index 42.98 (106.59 kg, 157.48 cm) jb4 MDM: 04:48 Patient medically screened. rn 07:28 Differential diagnosis: Nonspecific abd pain, gastritis, cholecystitis, pancreatitis, wei diverticulitis, viral gastroenteritis, gastroenteritis. Data reviewed: vital signs, nurses notes, lab test result(s). Data interpreted: monitor and storage bin tender: rate is 63 beats/min, rhythm is regular, Pulse oximetry: on room air is 99 %. Counseling: I had a detailed discussion with the patient and/or guardian regarding: the historical points, exam findings, and any diagnostic results supporting the discharge/admit diagnosis, lab results, radiology results, the need for outpatient follow up, for definitive care, a family practitioner, a general surgeon, a operating engineer. 12/04 04:49 Order name: [facility]; Complete Time: 06:04 rn 12/04 04:49 Order name: Lipase; Complete Time: 06:04 rn 12/04 04:49 Order name: CT Abd/Pelvis - IV Contrast Only rn 12/04 05:01 Order name: Flu; Complete Time: 06:35 rn 12/04 04:49 Order name: IV Saline Lock; Complete Time: 05:06 rn 12/04 04:49 Order name: Labs collected and sent; Complete Time: 05:42 rn 12/04 04:50 Order name: Cardiac monitoring; Complete Time: 06:11 rn 12/04 04:50 Order name: Glucose Level; Complete Time: 05:42 rn Administered Medications: 05:06 Drug: NS 0.9% 1000 ml Route: IV; Rate: 1 bolus; Site: right antecubital; jb4 05:30 Not Given (Duplicate Order): Zofran (Ondansetron) 4 mg IVP once; over 2 minutes rn 05:42 Drug: Pepcid (famotidine) 20 mg Route: IVP; Site: right forearm; jb4 05:42 Drug: Phenergan (promethazine) 12.5 mg Route: IVP; Site: right forearm; jb4 07:54 Follow up: Response: Nausea is decreased jh6 Disposition Summary: 12/04/21 07:37 Discharge Ordered Location: Home wei Problem: new wei Symptoms: have improved wei Condition: Stable wei Diagnosis - Vomiting wei - Other cholelithiasis without obstruction wei - Type 1 diabetes mellitus with hypoglycemia wei - Obesity, unspecified wei Followup: wei - With: Private Physician - When: 2 - 3 days - Reason: Recheck today's complaints, Continuance of care, Re-evaluation by your physician Followup: wei - With: Navi Marx MD - When: 2 - 3 days - Reason: Recheck today's complaints, Continuance of care, Re-evaluation by your physician Followup: wei - With: Bo Sanchez MD - When: 2 - 3 days - Reason: Recheck today's complaints, Continuance of care, Re-evaluation by your physician Discharge Instructions: - Discharge Summary Sheet wei - Obesity, Adult wei - Cholelithiasis wei - Cholelithiasis, [id number] wei - Obesity, Adult, [id number] wei - Vomiting, Adult wei Forms: - Medication Reconciliation Form wei - Thank You Letter wei - Antibiotic Education wei - Prescription Opioid Use [facility] Prescriptions: - Pepcid 20 mg Oral Tablet - take 1 tablet by ORAL route every 12 hours for 15 days; 30 tablet; Refills: 0, [facility] Product Selection Permitted - Zofran 4 mg Oral Tablet - take 1 tablet by ORAL route every 12 hours As needed; 20 tablet; Refills: 0, [facility] Product Selection Permitted Signatures: Dispatcher [employer] Ivan Flores MD MD cha Nieto, Roman, MD MD rn Bryson, James, RN RN jb4 Alphonso James 2 Faye Bourne RN jh6
[2021-12-04 08:05] VITALS: BP 155/85; TEMP 97.6; O2SAT 100
--- NOTE | 2021-12-04 11:33 | RAD REPORT ---
EXAM DESCRIPTION: CT - Abdomen Pelvis W Contrast - 12/04/2021 7:06 am CLINICAL HISTORY: The patient is 56 years old and is Female; 3 days nausea/vomiting, no diarrhea, no bowel movement TECHNIQUE: Axial computed tomography images of the abdomen and pelvis with intravenous contrast. S agittal and coronal reformatted images were created and reviewed. This CT exam was performed using one or more of the following dose reduction techniques: automated exposure control, adjustment of t he mA and/or kV according to patient size, and/or use of iterative reconstruction technique. COMPARISON: No relevant prior studies available. FINDINGS: Lung bases: Unremarkable. No mass. No consolidation. ABDOMEN: Liver: Unremarkable. No mass. Gallbladder and bile ducts: Multiple gallstones in the gallbladder. No ductal dilation. Pancreas: Unremarkable. No mass. No ductal dilation. Spleen: Unremarkable. No splenomegaly. Adrenals: Unremarkable. No mass. Kidneys and ureters: Multiple simple cysts in the kidneys bilaterally. ACR White Paper guideline s (Herdat, et al. JACR 2018; 15(2):264-273) suggest no follow-up is necessary. No hydronephrosis. Stomach and bowel: Scattered colonic diverticula. No obstruction. No mucosal thickening. PELVIS: Appendix: No findings to suggest acute appendicitis. Bladder: Unremarkable. No mass. Reproductive: Suggestion of a 5.3 cm hemorrhagic or proteinaceous cyst involving the left ovary/ adnexa. Multifibroid uterus. ABDOMEN and PELVIS: Intraperitoneal space: Unremarkable. No free air. No significant fluid collection. Bones/joints: No acute fracture. No dislocation. Soft tissues: Tiny fat-containing ventral hernia. Fat-containing umbilical hernia. Vasculature: Unremarkable. No abdominal aortic aneurysm. Lymph nodes: Unremarkable. No enlarged lymph nodes. IMPRESSION: 1. No acute finding in the abdomen/pelvis. 2. Multiple gallstones in the gallbladder. 3. Suggestion of a 5.3 cm hemorrhagic or proteinaceous cyst involving the left ovary/adnexa. 4. Multifibroid uterus. 5. Additional non-emergent findings as above. Electronically signed by: Aquiles Pang MD 12/04/2021 6:57 AM CDT Due to temporary technical issues with the PACS/Fluency reporting system, reports are being signed by the in house radiologist without review as a courtesy to ensure prompt reporting. The interpreting r adiologist is fully responsible for the content of the report.
== END 2021-12-04 07:54 | disposition home or self-care (01) ==
LOC: ER 04:46
DX: K80.80 Other cholelithiasis without obstruction (principal); E10.649 Type 1 diabetes mellitus with hypoglycemia without coma; E66.9 Obesity, unspecified; Z68.41 Body mass index [BMI] 40.0-44.9, adult; I10 Essential (primary) hypertension; Z88.5 Allergy status to narcotic agent
CPT/HCPCS: 74177; 80053; 83690; 87804; 96374; 96375; 99284; J2550; J3490; Q9967

== ENCOUNTER 2022-03-18 17:24 | Inpatient (IN) | payer SELFPAY ==
[2022-03-18] MEDS ORDERED: ONDANSETRON 4 MG (ODT) TAB ONE (17:59)
[2022-03-18 19:09] LABS: Absolute Lymphocytes (CBC) 2.2 K/uL (0.7-4.9); Hematocrit 40.4 % (36.0-45.0); Lymphocytes % 15.8 % (15.3-44.8); MCV 85.6 fL (80-100); MPV 9.1 fL (7.6-11.3); RBC Red Blood Cell Count 4.72 M/uL (3.86-4.86)
[2022-03-18 19:18] LABS: Albumin 3.5 g/dL (3.4-5.0); Bilirubin Total 0.7 mg/dL (0.2-1.0); Potassium 3.8 mmol/L (3.5-5.1); Protein, Total 8.4 g/dL (6.4-8.2)
[2022-03-18] MEDS ORDERED: NA CHLORIDE 0.9% 1,000 ML ONE (19:38)
[2022-03-18] MEDS ORDERED: FAMOTIDINE 20 MG/2 ML VIAL IV ONE (19:38)
[2022-03-18] MEDS ORDERED: ONDANSETRON 4 MG/2 ML VIAL ONE (19:47)
--- NOTE | 2022-03-18 21:08 | RAD REPORT ---
EXAM DESCRIPTION: CT - Abdomen Pelvis W Contrast - 03/18/2022 8:55 pm CLINICAL HISTORY: Abdominal pain. Vomiting COMPARISON: November 2021 and 2014 TECHNIQUE: Computed axial tomography of the abdomen pelvis was obtained. 100 cc Isovue-300 was admin istered intravenously. Oral contrast was not requested which limits evaluation of bowel and appendix All CT scans are performed using dose optimization technique as appropriate and may include automated exposure control or mA/KV adjustment according to patient size. FINDINGS: Multiple gallstones. Gallbladder wall is not thickened. Biliary tree is normal caliber. The liver, spleen, pancreas and adrenals unremarkable. Bilateral renal cysts again demonstrated. There is no evidence of diverticulitis. Normal appendix. Small ventral and small to moderate umbilical hernias. 5.5 centimeter complex cystic mass left adnexa without significant change. Uterine fibroids IMPRESSION: Cholelithiasis without evidence of cholecystitis A 5.5 centimeter complex cystic mass left adnexa without significant change from 2019 likely benign
--- NOTE | 2022-03-18 21:08 | RAD REPORT ---
EXAM DESCRIPTION: US - Abdomen Exam Limited - 03/18/2022 8:07 pm CLINICAL HISTORY: Abdominal pain. COMPARISON: November 2021 cat scan FINDINGS: Multiple gallstones. Gallbladder wall thickness is normal The biliary tree is normal caliber. IMPRESSION: Cholelithiasis
--- NOTE | 2022-03-18 21:50 | ER ---
Nurse's Notes [facility] Name: Ning Kirk Age: 56 yrs Sex: Female : 1965 Arrival Date: 03/18/2022 Time: 17:26 Bed 4 Private MD: Diagnosis: Intractable vomiting;Other cholelithiasis without obstruction Presentation: 03/18 17:50 Chief complaint: Patient states: N/V since yesterday, denies diarrhea or ABD pain. vg1 Coronavirus screen: Vaccine status: Patient reports receiving the 2nd dose of the covid vaccine. Client denies travel out of the [place] in the last 14 days. Ebola Screen: Patient denies exposure to infectious person. Patient denies travel to an Ebola-affected area in the 21 days before illness onset. Initial Sepsis Screen: Does the patient meet any 2 criteria? No. Patient's initial sepsis screen is negative. Does the patient have a suspected source of infection? No. Patient's initial sepsis screen is negative. Risk Assessment: Do you want to hurt yourself or someone else? Patient reports no desire to harm self or others. Onset of symptoms was March 17, 2022. 17:50 Method Of Arrival: Ambulatory vg1 17:50 Acuity: HERACLIO 3 vg1 Triage Assessment: 17:51 General: Appears uncomfortable, Behavior is calm, cooperative. Pain: Denies pain. GI: vg1 Reports nausea, vomiting. Historical: - Allergies: 17:51 tramadol; vg1 - Home Meds: 17:51 metformin 1,000 mg Oral tr24 1 tab once daily for Prevention of Type 2 Diabetes vg1 Mellitus [Active]; losartan oral [Active]; Insulin: Humulin 70/30 Sub-Q [Active]; - PMHx: 17:51 Diabetes - IDDM; Diabetes - NIDDM; HTN; Pulmonary Embolism; vg1 - Immunization history:: Client reports receiving the 2nd dose of the Covid vaccine. - Social history:: Smoking status: Patient denies any tobacco usage or history of. Screenin:46 Abuse screen: Denies threats or abuse. Denies injuries from another. Nutritional lg3 screening: No deficits noted. Tuberculosis screening: No symptoms or risk factors identified. Fall Risk None identified. Assessment: 19:46 General: Appears in no apparent distress. uncomfortable, Behavior is calm, cooperative. lg3 Pain: Denies pain. Neuro: No deficits noted. Level of Consciousness is awake, alert, obeys commands, Oriented to person, place, time, situation. Cardiovascular: No deficits noted. Denies chest pain, shortness of breath, Capillary refill < 3 seconds Clubbing of nail beds is absent JVD is absent Patient's skin is warm and dry. Respiratory: No deficits noted. Airway is patent Trachea midline Respiratory effort is even, unlabored, Respiratory pattern is regular, symmetrical, Breath sounds are clear bilaterally. GI: Abdomen is round non-distended, obese, Bowel sounds present X 4 quads. Abd is soft and non tender X 4 quads. Reports nausea, vomiting, Patient currently denies abdominal pain, diarrhea. : No deficits noted. No signs and/or symptoms were reported regarding the genitourinary system. EENT: No deficits noted. No signs and/or symptoms were reported regarding the EENT system. Derm: No deficits noted. Skin is intact, is healthy with good turgor, Skin is dry, Skin temperature is warm. Musculoskeletal: No deficits noted. No signs and/or symptoms reported regarding the musculoskeletal system. Circulation, motion, and sensation intact. Range of motion: intact in all extremities. 20:43 Reassessment: Patient appears in no apparent distress at this time. No changes from lg3 previously documented assessment. Patient and/or family updated on plan of care and expected duration. Pain level reassessed. Patient is alert, oriented x 3, equal unlabored respirations, skin warm/dry/pink. 20:43 GI: Pt is actively vomiting. lg3 22:55 Reassessment: Patient appears in no apparent distress at this time. No changes from lg3 previously documented assessment. Patient and/or family updated on plan of care and expected duration. Pain level reassessed. Patient is alert, oriented x 3, equal unlabored respirations, skin warm/dry/pink. Patient states symptoms have improved. Vital Signs: 17:50 BP 168 / 106; Pulse 70; Resp 18; Temp 97.5; Pulse Ox 100% on R/A; Weight 106.59 kg; vg1 Height 5 ft. 2 in. (157.48 cm); Pain 0/10; 19:49 BP 166 / 101; Pulse 68; Resp 17; Pulse Ox 100% on R/A; lg3 20:54 BP 186 / 110; Pulse 68; Resp 16 S; Pulse Ox 96% on R/A; aa9 23:24 BP 164 / 88; Pulse 75; Resp 17 S; Pulse Ox 98% on R/A; lg3 17:50 Body Mass Index 42.98 (106.59 kg, 157.48 cm) vg1 ED Course: 17:26 Patient arrived in ED. rg4 17:27 James Ron DO is Attending Physician. ms3 17:51 Triage completed. vg1 17:51 Arm band placed on. vg1 18:53 Inserted saline lock: 22 gauge in left upper arm, using aseptic technique. Blood zm collected. 18:53 CBC with Diff Sent. zm 18:53 CMP Sent. zm 18:53 Lipase Sent. zm 19:21 Jeff Sofia, MARIOLA is Primary Nurse. as6 19:28 Attending Physician role handed off by James Ron DO ms3 19:28 Dm Garcia MD is Attending Physician. ms3 19:46 Patient has correct armband on for positive identification. Placed in gown. Bed in low lg3 position. Call light in reach. Side rails up X 1. Client placed on continuous cardiac and pulse oximetry monitoring. NIBP monitoring applied. Door closed. Noise minimized. Warm blanket given. 20:09 US Abdomen Limited In Process Unspecified. EDMS 20:57 CT Abd/Pelvis - IV Contrast Only In Process Unspecified. EDMS 21:49 Ashkan Ventura MD is Hospitalizing Provider. rn 21:53 Eldon Garcia MD is Hospitalizing Provider. la1 22:18 SARS RAPID Sent. aa9 23:29 No provider procedures requiring assistance completed. Patient admitted, IV remains in lg3 place. intact, No redness/swelling at site. Administered Medications: 17:48 CANCELLED (Physician Discretion): Zofran (Ondansetron) 4 mg IVP once; over 2 minutes ms3 17:53 Drug: Ondansetron 4 mg Route: PO; vg1 19:24 Follow up: Response: No adverse reaction lg3 19:42 Drug: Zofran (Ondansetron) 4 mg Route: IVP; Site: left upper arm; lg3 19:57 Follow up: Response: No adverse reaction lg3 19:43 Drug: NS 0.9% 1000 ml Route: IV; Rate: 1 bolus; Site: left upper arm; lg3 23:30 Follow up: Response: No adverse reaction; IV Status: Completed infusion; IV Intake: aa9 950ml 19:43 Drug: Pepcid (famotidine) 20 mg Route: IVP; Site: left upper arm; lg3 19:43 Follow up: Response: No adverse reaction lg3 22:18 Drug: Phenergan (promethazine) 12.5 mg Route: IVP; Site: left upper arm; aa9 23:29 Follow up: Response: No adverse reaction aa9 22:19 Drug: Rocephin (cefTRIAXone) 1 grams Route: IV; Rate: calculated rate; Site: left upper aa9 arm; 23:29 Follow up: Response: No adverse reaction; IV Status: Completed infusion; IV Intake: [id number] 22:19 Drug: Flagyl (metroNIDAZOLE) 500 mg Volume: 100 ml; Route: IVPB; Rate: 200 ml/hr; aa9 Infused Over: 30 mins; Site: left upper arm; 23:29 Follow up: Response: No adverse reaction; IV Status: Completed infusion; IV Intake: aa9 100ml Medication: 23:29 VIS not applicable for this client. lg3 Intake: 23:29 IV: 100ml; Total: 100ml. aa9 23:29 IV: 10ml; Total: 110ml. aa9 23:30 IV: 950ml; Total: 1060ml. aa9 Outcome: 21:49 Decision to Hospitalize by Provider. rn 23:29 Admitted to Med/surg accompanied by tech, via wheelchair, room 429. lg3 23:29 Condition: stable 23:29 Instructed on the need for admit, Demonstrated understanding of instructions. 03/19 00:05 Patient left the ED. lg3 Signatures: Dispatcher [employer] EDMS Dm Garcia MD MD rn Attema, Lee, STEEL LAYOUT WORKER-C STEEL LAYOUT WORKER-Cla1 Jazzmine Nunez rg4 Renetta Ya RN RN lg3 Cele Nunez, MARIOLA RN vg1 James Ron DO DO ms3 Jeff Sofia RN RN as6 Hailey Thompson Aylin, RN RN aa9 Corrections: (The following items were deleted from the chart) 03/18 17:52 17:51 PMHx: Insulin 70/30; vg1 vg1 22:56 20:43 Reassessment: Patient appears in no apparent distress at this time. No changes lg3 from previously documented assessment. Patient and/or family updated on plan of care and expected duration. Pain level reassessed. Patient is alert, oriented x 3, equal unlabored respirations, skin warm/dry/pink. Patient states symptoms have improved. lg3
--- NOTE | 2022-03-18 21:50 | EDPHYS ---
Physician Documentation [facility] Name: Ning Kirk Age: 56 yrs Sex: Female : 1965 Arrival Date: 03/18/2022 Time: 17:26 Bed 4 Private MD: ED Physician Dm Garcia HPI: 03/18 17:50 This 56 yrs old Black Female presents to ER via Unassigned with complaints of Vomiting. ms3 17:50 56-year-old female with past medical history of diabetes presents for vomiting that ms3 began on Wednesday. Patient states she has vomited multiple times today, too numerous to count. Patient denies pain. Patient states in the past she was seen in the emergency department with similar symptoms and treated with Zofran and Pepcid. Patient denies fevers, chills, abdominal pain, diarrhea.. Historical: - Allergies: 17:51 tramadol; vg1 - Home Meds: 17:51 metformin 1,000 mg Oral tr24 1 tab once daily for Prevention of Type 2 Diabetes vg1 Mellitus [Active]; losartan oral [Active]; Insulin: Humulin 70/30 Sub-Q [Active]; - PMHx: 17:51 Diabetes - IDDM; Diabetes - NIDDM; HTN; Pulmonary Embolism; vg1 - Immunization history:: Client reports receiving the 2nd dose of the Covid vaccine. - Social history:: Smoking status: Patient denies any tobacco usage or history of. ROS: 17:50 Constitutional: Negative for fever, and chills. ENT: Negative for injury, pain, and ms3 discharge, Neck: Negative for injury, pain, and swelling, Cardiovascular: Negative for chest pain, and palpitations. Respiratory: Negative for shortness of breath, cough, wheezing, and pleuritic chest pain. 17:50 MS/Extremity: Negative for injury and deformity, Skin: Negative for injury, rash, and discoloration. 17:50 Abdomen/GI: Positive for nausea and vomiting, Negative for diarrhea. 17:50 All other systems are negative. Exam: 17:50 Constitutional: This is a well developed, well nourished patient who is awake, alert, ms3 and in no acute distress. Head/Face: Normocephalic, atraumatic. Eyes: Pupils equal round and reactive to light, extra-ocular motions intact. Lids and lashes normal. Conjunctiva and sclera are non-icteric and not injected. Periorbital areas with no swelling, redness, or edema. Neck: Trachea midline, no cervical lymphadenopathy. Supple, full range of motion without nuchal rigidity, or vertebral point tenderness. No Meningismus. Chest/axilla: Normal chest wall appearance and motion. Nontender with no deformity. Cardiovascular: Regular rate and rhythm with a normal S1 and S2. No gallops, murmurs, or rubs. Normal PMI, no JVD. No pulse deficits. Respiratory: Lungs have equal breath sounds bilaterally, clear to auscultation and percussion. No rales, rhonchi or wheezes noted. No increased work of breathing, no retractions or nasal flaring. Abdomen/GI: Soft, non-tender, with normal bowel sounds. No distension or tympany. No guarding or rebound. No evidence of tenderness throughout. Skin: Warm, dry with normal turgor. Normal color with no rashes, no lesions, and no evidence of cellulitis. MS/ Extremity: Pulses equal, no cyanosis. Neurovascular intact. Full, normal range of motion. Psych: Awake, alert, with orientation to person, place and time. Behavior, mood, and affect are within normal limits. Vital Signs: 17:50 BP 168 / 106; Pulse 70; Resp 18; Temp 97.5; Pulse Ox 100% on R/A; Weight 106.59 kg; vg1 Height 5 ft. 2 in. (157.48 cm); Pain 0/10; 19:49 BP 166 / 101; Pulse 68; Resp 17; Pulse Ox 100% on R/A; lg3 20:54 BP 186 / 110; Pulse 68; Resp 16 S; Pulse Ox 96% on R/A; aa9 23:24 BP 164 / 88; Pulse 75; Resp 17 S; Pulse Ox 98% on R/A; lg3 17:50 Body Mass Index 42.98 (106.59 kg, 157.48 cm) vg1 MDM: 17:36 Patient medically screened. ms3 17:50 Differential diagnosis: Nonspecific abd pain, Vomiting vs Bowel obstruction vs ms3 Dehydration. 19:27 Transition of care: After a detail discussion of the patient's case, care is ms3 transferred to Dm Garcia MD. 21:48 Data reviewed: vital signs, nurses notes, lab test result(s), radiologic studies, CT rn scan, ultrasound, and as a result, I will admit patient. Counseling: I had a detailed discussion with the patient and/or guardian regarding: the historical points, exam findings, and any diagnostic results supporting the discharge/admit diagnosis, lab results, radiology results, the need for further work-up and treatment in the hospital. Response to treatment: There is no appreciated change of the patient's symptoms at this time, and as a result, I will admit patient. Admission orders: after a detailed discussion of the patient's condition and case, the admit orders are written by me. ED course: Pt still throwing up, cholelithiasis on U/S and CT, but no signs of cholecystitis. Elevated WBC. WIll re-medicate and admit to hospitalist service for further care and consultation.. 03/18 17:37 Order name: CBC with Diff; Complete Time: 19:35 nv3 03/18 17:37 Order name: CMP; Complete Time: 19:35 nv3 03/18 17:37 Order name: Lipase; Complete Time: 19:35 ms3 03/18 17:37 Order name: Urine Microscopic Only nv3 03/18 19:02 Order name: Troponin High Sensitivity; Complete Time: 20:53 rn 03/18 21:50 Order name: SARS RAPID as6 03/18 17:37 Order name: CT Abd/Pelvis - IV Contrast Only; Complete Time: 21:18 nv3 03/18 19:35 Order name: US Abdomen Limited; Complete Time: 21:18 rn 03/18 23:01 Order name: Urine Dipstick-Ancillary [facility] 03/18 17:37 Order name: IV Saline Lock; Complete Time: 18:53 ms3 03/18 17:37 Order name: Labs collected and sent; Complete Time: 18:53 nv3 03/18 17:37 Order name: Urine Dipstick-Ancillary (obtain specimen); Complete Time: 00:05 nv3 03/18 19:02 Order name: EKG; Complete Time: 19:03 rn 03/18 19:02 Order name: EKG - Nurse/Tech; Complete Time: 19:55 rn Administered Medications: 17:48 CANCELLED (Physician Discretion): Zofran (Ondansetron) 4 mg IVP once; over 2 minutes ms3 17:53 Drug: Ondansetron 4 mg Route: PO; vg1 19:24 Follow up: Response: No adverse reaction lg3 19:42 Drug: Zofran (Ondansetron) 4 mg Route: IVP; Site: left upper arm; lg3 19:57 Follow up: Response: No adverse reaction lg3 19:43 Drug: NS 0.9% 1000 ml Route: IV; Rate: 1 bolus; Site: left upper arm; lg3 23:30 Follow up: Response: No adverse reaction; IV Status: Completed infusion; IV Intake: aa9 950ml 19:43 Drug: Pepcid (famotidine) 20 mg Route: IVP; Site: left upper arm; lg3 19:43 Follow up: Response: No adverse reaction lg3 22:18 Drug: Phenergan (promethazine) 12.5 mg Route: IVP; Site: left upper arm; aa9 23:29 Follow up: Response: No adverse reaction aa9 22:19 Drug: Rocephin (cefTRIAXone) 1 grams Route: IV; Rate: calculated rate; Site: left upper aa9 arm; 23:29 Follow up: Response: No adverse reaction; IV Status: Completed infusion; IV Intake: [id number] 22:19 Drug: Flagyl (metroNIDAZOLE) 500 mg Volume: 100 ml; Route: IVPB; Rate: 200 ml/hr; aa9 Infused Over: 30 mins; Site: left upper arm; 23:29 Follow up: Response: No adverse reaction; IV Status: Completed infusion; IV Intake: aa9 100ml Disposition Summary: 03/18/22 21:49 Hospitalization Ordered Hospitalization Status: Observation rn Location: Telemetry/[facility] (observation) rn Condition: Stable rn Problem: new rn Symptoms: are unchanged rn Bed/Room Type: Standard rn Provider: Eldon Garcia(03/18/22 21:53) la1 Room Assignment: [facility](03/18/22 22:57) Diagnosis - Intractable vomiting rn - Other cholelithiasis without obstruction rn Forms: - Medication Reconciliation Form rn - SBAR form rn Signatures: Dispatcher [employer] EDMS Dm Garcia MD MD rn Attema, Lee, ALARM INSTALLATION TECHNICIAN-C ALARM INSTALLATION TECHNICIAN-[facility] Miriam Nunez RN RN cg Gibson, Lacie, RN RN lg3 Cele Nunez, RN RN vg1 James Ron DO DO ms3 Aubrie Alan, RN RN aa9 Corrections: (The following items were deleted from the chart) 17:48 17:37 Zofran (Ondansetron) 4 mg IVP once; over 2 minutes ordered. ms3 ms3 17:52 17:51 PMHx: Insulin 70/30; vg1 vg1 21:53 21:49 Ashkan Ventura rn la1 22:57 21:49 mendoza llanos
[2022-03-18] MEDS ORDERED: NA CHLORIDE 0.9% 0 ML ONE (22:05)
[2022-03-18] MEDS ORDERED: PROMETHAZINE INJ 25 MG/ML AMP ONE (22:05)
[2022-03-18] MEDS ORDERED: METRONIDAZOLE 500mg IVPB 500 MG/100 ML BAG IV ONE (22:05)
[2022-03-18] MEDS ORDERED: CEFTRIAXONE 1000 MG/VIAL ONE (22:05)
[2022-03-18 22:57] LABS: SARS-CoV-2 Antigen Rapid Res Negative (Negative)
[2022-03-18 23:00] LABS: Urine Blood Negative (Negative); Urine Glucose 2+ (Negative); Urine Protein 2+ (Negative); Urine Specific Gravity 1.015 (1.005-1.030)
--- NOTE | 2022-03-18 23:12 | P.HP ---
Certification for Inpatient Patient admitted to: Observation With expected LOS: <2 Midnights Patient will require the following post-hospital care: None Practitioner: I am a practitioner with admitting privileges, knowledge of patient current condition, hospital course, and medical plan of care. Services: Services provided to patient in accordance with Admission requirements found in Title 42 Section 412.3 of the Code of Federal Regulations <Moises Sharma - Last Filed: 03/18/22 23:10> Patient History Date of Service: 03/18/22 Reason for admission: Intractable vomiting History of Present Illness: 56-year-old female with history of insulin-dependent diabetes, hypertension, presents the emergency department for vomiting. She reports she has been vomiting for the last 2 to 3 days, she denies any vomiting or diarrhea cannot think of anything that may she may have consumed that would be contributing. She has had 1 similar episode in the past her labs in the ER receiving for a mild leukocytosis, hyperglycemia abdominal ultrasound showed cholelithiasis without concern for cholecystitis, CT shows again cholelithiasis without evidence for cholecystitis as well as a 5.5 cm complex cystic mass left adnexa without significant change since 2019 likely benign. Patient with no abdominal pain or tenderness on exam she was given multiple rounds of antiemetics in the emergency department without relief, ED provider wishes to admit for intractable vomiting. - Past Medical/Surgical History Diabetic: Yes -: CovID 19 pneumonia -: DM2, insulin dependent -: Pulmonary embolus -: tubal Psychosocial/ Personal History: Patient lives at home with her family - Social History Alcohol use: No CD- Drugs: No Caffeine use: Yes Place of Residence: Home <Moises Sharma - Last Filed: 03/18/22 23:10> Date of Service: 03/19/22 <Ashkan Ventura - Last Filed: 03/19/22 18:42> Allergies tramadol Allergy (Unknown, Verified 04/30/20 15:51) Itching/Hives/Rash Home Medications: RX: Alcohol Antiseptic Pads [[employer] Alcohol Prep Pad] 1 each TP TID #100 med..pad 05/12/20 RX: Atorvastatin Calcium [Lipitor] 40 mg PO BEDTIME #30 tab 05/12/20 RX: Blood Sugar Diagnostic [[employer] Test Strip] 1 each MC TID #100 strip 05/12/20 RX: Blood-Glucose Meter [[employer] Glucose Monitoring] 1 each TID #1 kit 05/12/20 RX: Cholecalciferol (Vitamin D3) [Vitamin D 1000 Iu Tab*] 2,000 unit PO DAILY #30 tab 05/12/20 RX: Insulin 70/30 NPH/Reg Human [Novolin 70/30*] 25 unit SQ BIDAC #100 ml 05/12/20 RX: Lancing Device [[employer] Ult Lancing Device] 1 each MC TID #100 each 05/12/20 RX: Senosides [Senokot*] 17.2 mg PO BID #60 tab 05/12/20 RX: Syringe-Needle,Insulin,0.5 ml [[employer] Insulin Syringe] 1 each TID #100 disp.syrin 05/12/20 RX: Thiamine HCl [Vitamin B-1*] 200 mg PO DAILY #60 tablet 05/12/20 RX: Metoclopramide HCl [Reglan] 5 mg PO Q8HR PRN 14 Days #40 tablet 05/31/20 RX: Warfarin Sodium 2.5 mg PO SEECOM 30 Days #60 tablet 05/31/20 RX: predniSONE [Deltasone*] 10 mg PO DAILY 14 Days #14 tab 05/31/20 Ondansetron [Zofran] 4 mg PO Q8H PRN #20 tab 03/19/22 Review of Systems 10-point ROS is otherwise unremarkable Gastrointestinal: Nausea, Vomiting <Moises Sharma - Last Filed: 03/18/22 23:10> Physical Examination - Physical Exam General: Alert, In no apparent distress, Oriented x3 HEENT: Atraumatic, PERRLA, Mucous membr. moist/pink, EOMI, Sclerae nonicteric Neck: Supple, 2+ carotid pulse no bruit, No LAD, Without JVD or thyroid abnormality Respiratory: Clear to auscultation bilaterally, Normal air movement Cardiovascular: Regular rate/rhythm, Normal S1 S2 Gastrointestinal: Normal bowel sounds, No tenderness Musculoskeletal: No tenderness Integumentary: No rashes Neurological: Normal gait, Normal speech, Normal strength at 5/5 x4 extr, Normal tone, Normal affect Lymphatics: No axilla or inguinal lymphadenopathy - Studies Laboratory Data (last 24 hrs) 03/18/22 18:49: Sodium 136, Potassium 3.8, BUN 26 H, Creatinine 1.19, Glucose 347 H, Total Bilirubin 0.7, AST 11 L, ALT 18, Alkaline Phosphatase 153 H, Lipase 36 L 03/18/22 18:49: WBC 14.10 H, Hgb 12.8, Hct 40.4, Plt Count 276 <Moises Sharma - Last Filed: 03/18/22 23:10> - Studies Laboratory Data (last 24 hrs) 03/19/22 17:45: WBC 12.70 H D, Hgb 12.4, Hct 38.5, Plt Count 264 03/19/22 02:54: Sodium 137, Potassium 3.7, BUN 21 H, Creatinine 1.04, Glucose 289 H, Total Bilirubin 0.6, AST 11 L, ALT 17, Alkaline Phosphatase 148 H 03/19/22 02:54: WBC 15.20 H, Hgb 12.4, Hct 37.5, Plt Count 262 03/18/22 18:49: Sodium 136, Potassium 3.8, BUN 26 H, Creatinine 1.19, Glucose 347 H, Total Bilirubin 0.7, AST 11 L, ALT 18, Alkaline Phosphatase 153 H, Lipase 36 L 03/18/22 18:49: WBC 14.10 H, Hgb 12.8, Hct 40.4, Plt Count 276 <Ashkan Ventura - Last Filed: 03/19/22 18:42> Assessment and Plan - Plan Assessment: Intractable vomiting Diabetes mellitus type 2insulin-dependent with hyperglycemia Hypertension Plan: Intractable vomiting: No abdominal pain or tenderness noted CT and ultrasound demonstrate cholelithiasis without cholecystitis. N.p.o. for tonight continue with IV fluids we will reassess in the morning, if patient develops pain or worsening consider surgical consultation. We will treat with IV PPI as well. Diabetes mellitus type 2insulin-dependent with hyperglycemia: Patient takes 70/30 insulin 50 units twice daily, glucose elevated in the ED although she will be n.p.o. we will provide with sliding scale insulin for time being. Recheck glucose this evening and treat hypoglycemia as appropriate. Hypertension: Continue medication once patient is tolerating p.o. DVT PPX: Lovenox Code status: Full Discharge Plan: Home Plan to discharge in: 24 Hours - Advance Directives Does patient have a Living Will: No Does patient have a Durable POA for Healthcare: No - Code Status/Comfort Care Code Status Assessed: Yes (Full code) Critical Care: No Time Spent Managing Pts Care (In Minutes): 55 <Moises Sharma - Last Filed: 03/18/22 23:10> Physician Review: Patient Assessed, Agree with Above Assessment and Plan <Ashkan Ventura - Last Filed: 03/19/22 18:42>
[2022-03-18 23:28] LABS: Urine Mucus Slight /HPF (None Seen); Urine RBC <5 /HPF (None Seen)
[2022-03-19 00:29] VITALS: BMI 43.0
[2022-03-19] MEDS ORDERED: ONDANSETRON 4 MG/2 ML VIAL IV PRN (01:33)
[2022-03-19] MEDS ORDERED: SODIUM CHLORIDE 0.9% 10ML INJ IV PRN (01:33)
[2022-03-19] MEDS ORDERED: D5 0.45 NS 1,000 ML IV SCH (01:33)
[2022-03-19 03:37] LABS: Absolute Lymphocytes (CBC) 1.9 K/uL (0.7-4.9); Hematocrit 37.5 % (36.0-45.0); Lymphocytes % 12.5 % (15.3-44.8); MCV 84.4 fL (80-100); RBC Red Blood Cell Count 4.44 M/uL (3.86-4.86)
[2022-03-19 03:49] LABS: Albumin 3.4 g/dL (3.4-5.0); Bilirubin Total 0.6 mg/dL (0.2-1.0); Potassium 3.7 mmol/L (3.5-5.1); Protein, Total 8.1 g/dL (6.4-8.2)
[2022-03-19 04:05] VITALS: O2SAT 98
[2022-03-19] MEDS: Ringers Lactate 1,000 ML IV SCH ×2 (04:13→16:29)
[2022-03-19] MEDS: PROMETHAZINE INJ 25 MG/ML AMP IV PRN ×3 (04:19→16:36)
[2022-03-19] MEDS: INSULIN -REGULAR HUMAN 50 UNIT/0.5 ML ML SQ SCH ×2 (05:54→12:21)
[2022-03-19] MEDS ORDERED: INSULIN -REGULAR HUMAN 50 UNIT/0.5 ML ML SQ SCH ×2 (07:30→16:30)
[2022-03-19] MEDS ORDERED: PANTOPRAZOLE 40 MG INJ IVP SCH (09:00)
[2022-03-19] MEDS ORDERED: ENOXAPARIN 40 MG/0.4 ML SQ SCH (09:00)
[2022-03-19 12:53] VITALS: BP 165/77; TEMP 96.7
--- NOTE | 2022-03-19 13:57 | EKG ---
Test Date: 2022-03-18 Test Time: 19:49:27 Stockroom Attendant: APOLINAR MEASUREMENT RESULTS: Intervals: Rate: 80 WV: 140 QRSD: 80 QT: 368 QTc: 424 [place]: P: 52 WV: 140 QRS: -4 T: 69 INTERPRETIVE STATEMENTS: Normal sinus rhythm Possible Left atrial enlargement Borderline ECG Compared to ECG 05/29/2020 09:59:48 Sinus arrhythmia no longer present Electronically Signed On 03-19-22 13:55:10 CDT by Henrique Cool
[2022-03-19] MEDS ORDERED: GLUCAGON 1 MG/VIAL IM PRN (15:28)
[2022-03-19] MEDS ORDERED: D50W 25 GM/50 ML SYRINGE IV PRN (15:28)
[2022-03-19 18:01] LABS: Absolute Lymphocytes (CBC) 2.5 K/uL (0.7-4.9); Hematocrit 38.5 % (36.0-45.0); Lymphocytes % 19.5 % (15.3-44.8); MCV 84.3 fL (80-100); MPV 8.7 fL (7.6-11.3); RBC Red Blood Cell Count 4.56 M/uL (3.86-4.86)
--- NOTE | 2022-03-19 18:28 | P.DS ---
Admission Date: 03/19/22 Discharge Date: 03/19/22 Disposition: ROUTINE DISCHARGE Discharge Condition: GOOD Reason for Admission: Intractable vomiting Consultations: 1. Gastroenterology Hospital Course: DIAGNOSES: # Intractable Nausea/Vomiting suspect secondary to Diabetic Gastroparesis # Hyperglycemia in Type II Diabetes Mellitus # Asymptomatic Cholelithiasis # 5.5 Centimeter Complex Left Adnexal Cystic Mass (unchanged from 2019 - likely benign per radiology report) # Hypertension HOSPITAL COURSE: Ms. Ning Kirk is a 56 year old female with a past medical history significant for type 2 diabetes mellitus and hypertension who was admitted to the [facility] on 03/18/2022 for intractable nausea and vomiting. She was admitted to the Medicine service for further evaluation. During her hospital course, she did not exhibit any recurrent episodes of vomiting, but did have occasional nausea. She was able to eat a clear liquid diet and advance to full liquids, without any issues. Given her clinical scenario and elevated hemoglobin A1c, I suspect that the etiology of her symptoms is diabetic gastroparesis. Although cholelithiasis was noted on the ultrasound, she does not demonstrate any abdominal pain and does not have a positive Cormier sign on exam. She will likely need a complete outpatient evaluation with a gastric emptying study. I have contacted Dr. Perrin (Gastroenterology), who has agreed to see her in his clinic tomorrow at 08:00 AM. I discussed this plan in detail with Ms. Kirk, and she was in agreement with this plan and is happy with discharge. On 03/19/2022, she was seen on rounds and deemed medically stable for discharge. She was discharged with instructions to schedule follow-up appointments with her PCP in 3-[address] Perrin (Gastroenterology) tomorrow morning. She was provided a prescription for ondansetron. She was given the opportunity to ask questions and reported no further questions. Furthermore, all questions were answered to the best of my ability. Today, I personally spent 20 minutes on her case, of which greater than 50% of the time was spent in patient education, counseling, and coordination of care as described above. Vital Signs/Physical Exam: Temp Pulse Resp BP Pulse Ox 96.7 F L 86 13 165/77 H 99 03/19/22 15:53 03/19/22 15:53 03/19/22 15:53 03/19/22 15:53 03/19/22 15:53 General: Alert, In no apparent distress, Oriented x3 HEENT: Atraumatic, PERRLA, Mucous membr. moist/pink, EOMI, Sclerae nonicteric Neck: Supple, JVD not distended Respiratory: Clear to auscultation bilaterally, Normal air movement Cardiovascular: Regular rate/rhythm, Normal S1 S2, No gallops, No rubs, No murmurs Gastrointestinal: Normal bowel sounds, Soft and benign, Non-distended, No tenderness, No rebound, No guarding Musculoskeletal: No clubbing Integumentary: No rashes Neurological: Normal speech, Cranial nerves 3-12 intact, Normal affect Laboratory Data at Discharge: WBC 12.70 K/uL (4.3-10.9) H D 03/19/22 17:45 Hgb 12.4 g/dL (12.0-15.0) 03/19/22 17:45 Hct 38.5 % (36.0-45.0) 03/19/22 17:45 Plt Count 264 K/uL (152-406) 03/19/22 17:45 Sodium 137 mmol/L (136-145) 03/19/22 02:54 Potassium 3.7 mmol/L (3.5-5.1) 03/19/22 02:54 BUN 21 mg/dL (7-18) H 03/19/22 02:54 Creatinine 1.04 mg/dL (0.55-1.3) 03/19/22 02:54 Glucose 289 mg/dL (74-106) H 03/19/22 02:54 Total Bilirubin 0.6 mg/dL (0.2-1.0) 03/19/22 02:54 AST 11 U/L (15-37) L 03/19/22 02:54 ALT 17 U/L (12-78) 03/19/22 02:54 Alkaline Phosphatase 148 U/L (45-117) H 03/19/22 02:54 Lipase 36 U/L (73-393) L 03/18/22 18:49 Home Medications: RX: Alcohol Antiseptic Pads [C[employer] Alcohol Prep Pad] 1 each TP TID #100 med..pad 05/12/20 RX: Atorvastatin Calcium [Lipitor] 40 mg PO BEDTIME #30 tab 05/12/20 RX: Blood Sugar Diagnostic [C[employer] Test Strip] 1 each MC TID #100 strip 05/12/20 RX: Blood-Glucose Meter [LikeAndy Glucose Monitoring] 1 each MC TID #1 kit 05/12/20 RX: Cholecalciferol (Vitamin D3) [Vitamin D 1000 Iu Tab*] 2,000 unit PO DAILY #30 tab 05/12/20 RX: Insulin 70/30 NPH/Reg Human [Novolin 70/30*] 25 unit SQ BIDAC #100 ml RX: Lancing Device [[employer] Ult Lancing Device] 1 each MC TID #100 each 05/12/20 RX: Senosides [Senokot*] 17.2 mg PO BID #60 tab 05/12/20 RX: Syringe-Needle,Insulin,0.5 ml [LikeAndy Insulin Syringe] 1 each TID #100 disp.syrin 05/12/20 RX: Thiamine HCl [Vitamin B-1*] 200 mg PO DAILY #60 tablet 05/12/20 RX: Metoclopramide HCl [Reglan] 5 mg PO Q8HR PRN 14 Days #40 tablet 05/31/20 RX: Warfarin Sodium 2.5 mg PO SEECOM 30 Days #60 tablet 05/31/20 RX: predniSONE [Deltasone*] 10 mg PO DAILY 14 Days #14 tab 05/31/20 Ondansetron [Zofran] 4 mg PO Q8H PRN #20 tab 03/19/22 New Medications: Ondansetron [Zofran] 4 mg PO Q8H PRN #20 tab PRN Reason: Nausea / Vomiting Physician Discharge Instructions: 1. Please schedule a follow-up with your PCP in 3-5 days 2. Please schedule a follow-up with Gastroenterology (Dr. Perrin) tomorrow morning at 08:00 AM Diet: ADA (small, frequent meals) Activity: Ad nito Followup: NONE,NONE [Primary Care Provider] - Lee Perrin MD [ACTIVE - CAN ADMIT] - Time spent managing pt's care (in minutes): 20
== END 2022-03-19 19:56 | disposition home or self-care (01) | DRG 74 ==
LOC: ER 17:24 → ERHOLD 22:48 → 4TH 23:29 → OBSVTOIN 03-19 18:00
PROVIDERS: ADMIT Internal Medicine; ATTEND Internal Medicine
DX: E11.43 Type 2 diabetes mellitus with diabetic autonomic (poly)neuropathy (principal); E11.65 Type 2 diabetes mellitus with hyperglycemia; K31.84 Gastroparesis; K80.20 Calculus of gallbladder without cholecystitis without obstruction; N83.291 Other ovarian cyst, right side; I10 Essential (primary) hypertension; Z20.822 Contact with and (suspected) exposure to COVID-19; Z86.16 Personal history of COVID-19
CPT/HCPCS: 36415; 74177; 76705; 80053; 81003; 81015; 82947; 83036; 83690; 84484; 85025; 87811; 93005; 96361; 96365; 96368; 96375; 99285; C9113; G0378; J1650; J1815; J2405; J2550; J7030; J7120; J7799; Q0162; Q9967

== ENCOUNTER 2022-03-20 08:52 | Emergency (ER) | payer SELFPAY ==
[2022-03-20] MEDS ORDERED: METOCLOPRAMIDE 10 MG/2mL INJ ONE (10:26)
[2022-03-20] MEDS ORDERED: ONDANSETRON 4 MG/2 ML VIAL ONE (10:27)
[2022-03-20] MEDS ORDERED: NA CHLORIDE 0.9% 1,000 ML ONE (10:27)
[2022-03-20 11:01] LABS: Urine Blood Negative (Negative); Urine Glucose Trace (Negative); Urine Protein 1+ (Negative); Urine Specific Gravity 1.025 (1.005-1.030); Urine pH 6.5 (5.0-7.0)
[2022-03-20 11:03] LABS: Hematocrit 41.4 % (36.0-45.0); Lymphocytes % 22.5 % (15.3-44.8); MCV 84.3 fL (80-100); MPV 8.9 fL (7.6-11.3); RBC Red Blood Cell Count 4.91 M/uL (3.86-4.86)
[2022-03-20 11:29] LABS: Albumin 3.5 g/dL (3.4-5.0); Bilirubin Total 0.8 mg/dL (0.2-1.0); Potassium 3.3 mmol/L (3.5-5.1); Protein, Total 8.4 g/dL (6.4-8.2)
--- NOTE | 2022-03-20 12:33 | ER ---
Nurse's Notes [facility] Name: Ning Kirk Age: 56 yrs Sex: Female : 1965 Arrival Date: 03/20/2022 Time: 08:55 Bed 26 Private MD: Diagnosis: Nausea Presentation: 03/20 09:18 Chief complaint: Patient states: Was d/c from hospital yesterday and told to follow up ph w/ GI today at 0800, pt states, " I called up there and they didn't know anything about me. I had to make an appointment for Mar 25. I am still so nauseated and the [facility] pharmacy didn't open til 9 so I couldn't get my medicine they prescribed.". Coronavirus screen: Vaccine status: Patient reports receiving the 2nd dose of the covid vaccine. Ebola Screen: No symptoms or risks identified at this time. Initial Sepsis Screen: Does the patient meet any 2 criteria? No. Patient's initial sepsis screen is negative. Does the patient have a suspected source of infection? No. Patient's initial sepsis screen is negative. Risk Assessment: Do you want to hurt yourself or someone else? Patient reports no desire to harm self or others. Onset of symptoms was March 20, 2022. 09:18 Method Of Arrival: Ambulatory ph 09:18 Acuity: HERACLIO 3 ph Triage Assessment: 09:25 General: Appears in no apparent distress. Behavior is calm, cooperative, appropriate ph for age. Pain: Denies pain. Neuro: Level of Consciousness is awake, alert, obeys commands, Oriented to person, place, time, situation. Cardiovascular: No deficits noted. Respiratory: No deficits noted. GI: Reports nausea, vomiting. : No signs and/or symptoms were reported regarding the genitourinary system. Derm:. Musculoskeletal: Circulation, motion, and sensation intact. Range of motion: intact in all extremities. Historical: - Allergies: :22 tramadol; ph - Home Meds: : Insulin: Humulin 70/30 Sub-Q [Active]; losartan Oral [Active]; metformin 1,000 mg Oral ph tr24 1 tab once daily for Prevention of Type 2 Diabetes Mellitus [Active]; - PMHx: 09: Diabetes - IDDM; Diabetes - NIDDM; HTN; Pulmonary Embolism; ph - Immunization history:: Adult Immunizations unknown. - Social history:: Smoking status: unknown. - Family history:: not pertinent. - Hospitalizations: : The patient was recently seen at [facility]. Screenin:22 Abuse screen: Denies threats or abuse. Denies injuries from another. Nutritional ph screening: No deficits noted. Tuberculosis screening: No symptoms or risk factors identified. Fall Risk None identified. Assessment: 09:30 General: SEE TRIAGE ASSESSMENT. ph Vital Signs: 09:18 BP 140 / 89; Pulse 101; Resp 18; Temp 97.5; Pulse Ox 99% on R/A; ph 11:06 BP 113 / 70; Pulse 88; Resp 18; Pulse Ox 100% on R/A; ph 12:30 BP 118 / 76; Pulse 78; Resp 18; Temp 97.9; Pulse Ox 99% on R/A; ph ED Course: 08:55 Patient arrived in ED. am2 09:06 Dm Garcia MD is Attending Physician. rn 09:07 Hilary Henderson RN is Primary Nurse. ph 09:22 Triage completed. ph 09:22 Arm band placed on Patient placed in an exam room. ph 09:22 Patient has correct armband on for positive identification. Bed in low position. Call ph light in reach. Side rails up X 1. Pulse ox on. NIBP on. 10:50 Initial lab(s) drawn, by me, sent to lab. Inserted saline lock: 22 gauge in right ph antecubital area, using aseptic technique. Blood collected. 12:32 Lee Perrin MD is Referral Physician. rn 13:00 No provider procedures requiring assistance completed. IV discontinued, intact, ph bleeding controlled, No redness/swelling at site. Pressure dressing applied. Administered Medications: 10:50 Drug: NS 0.9% 1000 ml Route: IV; Rate: 1 bolus; Site: right antecubital; ph 12:30 Follow up: Response: No adverse reaction; IV Status: Completed infusion ph 10:50 Drug: Zofran (Ondansetron) 4 mg Route: IVP; Site: right antecubital; ph 11:15 Follow up: Response: No adverse reaction ph 10:50 Drug: Reglan (metoCLOPramide) 10 mg Route: IVP; Site: right antecubital; ph 11:00 Follow up: Response: No adverse reaction ph Medication: 09:22 VIS not applicable for this client. ph Outcome: 12:32 Discharge ordered by . rn 13:02 Patient left the ED. milena 13:02 Discharged to home ambulatory. ph 13:02 Condition: good 13:02 Discharge instructions given to patient, Instructed on discharge instructions, follow up and referral plans. Demonstrated understanding of instructions, follow-up care. Signatures: Dm Garcia MD MD rn Hall, Patricia, RN RN ph Moreno, Amanda am2 Botello, Elizabeth eb
--- NOTE | 2022-03-20 12:33 | EDPHYS ---
Physician Documentation [facility] Name: Ning Kirk Age: 56 yrs Sex: Female : 1965 Arrival Date: 03/20/2022 Time: 08:55 Bed 26 Private MD: ED Physician Dm Garcia HPI: 03/20 09:36 This 56 yrs old Black Female presents to ER via Ambulatory with complaints of Abdominal rn Pain, Nausea/Vomiting. 09:36 The patient presents to the emergency department with nausea. Onset: The rn symptoms/episode began/occurred 3 day(s) ago. Possible causes: unknown. The symptoms are aggravated by nothing. The symptoms are alleviated by nothing. Associated signs and symptoms: Pertinent positives: nausea, Pertinent negatives: abdominal pain, fever, GI bleeding. Severity of symptoms: At their worst the symptoms were moderate in the emergency department the symptoms have improved. The patient has experienced similar episodes in the past. The patient has been recently been admitted at [facility]. Pt admitted by me recently for nausea/vomiting, discharged yesterday from hospital, was supposed to f/u in clinic today with Dr. Perrin, called this AM and no appointment existed, was only able to make appointment in 5 days. Returned because still nauseated and unable to fill medications prescribed because pharmacy not open. . Historical: - Allergies: 09:22 tramadol; ph - Home Meds: :22 Insulin: Humulin 70/30 Sub-Q [Active]; losartan Oral [Active]; metformin 1,000 mg Oral ph tr24 1 tab once daily for Prevention of Type 2 Diabetes Mellitus [Active]; - PMHx: 09:22 Diabetes - IDDM; Diabetes - NIDDM; HTN; Pulmonary Embolism; ph - Immunization history:: Adult Immunizations unknown. - Social history:: Smoking status: unknown. - Family history:: not pertinent. - Hospitalizations: : The patient was recently seen at [facility]. ROS: 09:36 Constitutional: Negative for fever, chills, and weight loss, Eyes: Negative for injury, rn pain, redness, and discharge, Neck: Negative for injury, pain, and swelling, Cardiovascular: Negative for chest pain, palpitations, and edema, Respiratory: Negative for shortness of breath, cough, wheezing, and pleuritic chest pain, Abdomen/GI: + nausea, negative for abd pain and vomiting Back: Negative for injury and pain, MS/Extremity: Negative for injury and deformity, Skin: Negative for injury, rash, and discoloration, Neuro: Negative for headache, weakness, numbness, tingling, and seizure. Exam: 09:36 Constitutional: This is a well developed, well nourished patient who is awake, alert, rn and in no acute distress. Head/Face: Normocephalic, atraumatic. Eyes: Periorbital areas with no swelling, redness, or edema. Cardiovascular: Tachycardic, regular. No pulse deficits. Respiratory: No increased work of breathing, no retractions or nasal flaring. Abdomen/GI: Soft, non-tender, nondistended, neg rudolph Skin: Warm, dry MS/ Extremity: Pulses equal, no cyanosis. Neuro: Awake and alert, GCS 15 Vital Signs: 09:18 BP 140 / 89; Pulse 101; Resp 18; Temp 97.5; Pulse Ox 99% on R/A; ph 11:06 BP 113 / 70; Pulse 88; Resp 18; Pulse Ox 100% on R/A; ph 12:30 BP 118 / 76; Pulse 78; Resp 18; Temp 97.9; Pulse Ox 99% on R/A; ph MDM: 09:06 Patient medically screened. rn 12:31 Differential diagnosis: gastritis, gastroparesis. Data reviewed: vital signs, nurses rn notes, old medical records, lab test result(s), and as a result, I will discharge patient. Counseling: I had a detailed discussion with the patient and/or guardian regarding: the historical points, exam findings, and any diagnostic results supporting the discharge/admit diagnosis, lab results, the need for outpatient follow up, to return to the emergency department if symptoms worsen or persist or if there are any questions or concerns that arise at home. Response to treatment: the patient's symptoms have markedly improved after treatment, and as a result, I will discharge patient. Special discussion: I discussed with the patient/guardian in detail that at this point there is no indication for admission to the hospital. It is understood, however, that if the symptoms persist or worsen the patient needs to return immediately for re-evaluation. Based on the history and exam findings, there is no indication for further emergent testing or inpatient evaluation. I discussed with the patient/guardian the need to see the cigar packer and grader for further evaluation of the symptoms. ED course: Dr. Ventura spoke with Dr. Perrin again just now, Dr. Perrin is expecting patient and can work her in immediately if discharged. Will dc home right now for GI f/u upon discharge. . 03/20 09:13 Order name: CBC with Diff; Complete Time: 11:45 rn 03/20 09:13 Order name: CMP; Complete Time: 11:45 rn 03/20 09:13 Order name: Lipase; Complete Time: 11:45 rn 03/20 11:01 Order name: Urine Dipstick-Ancillary; Complete Time: 11:45 EDMS 03/20 09:13 Order name: IV Saline Lock; Complete Time: 10:15 rn 03/20 09:13 Order name: Labs collected and sent; Complete Time: 11:01 rn 03/20 10:53 Order name: Urine Dipstick-Ancillary (obtain specimen); Complete Time: 11:01 rn Administered Medications: 10:50 Drug: NS 0.9% 1000 ml Route: IV; Rate: 1 bolus; Site: right antecubital; ph 12:30 Follow up: Response: No adverse reaction; IV Status: Completed infusion ph 10:50 Drug: Zofran (Ondansetron) 4 mg Route: IVP; Site: right antecubital; ph 11:15 Follow up: Response: No adverse reaction ph 10:50 Drug: Reglan (metoCLOPramide) 10 mg Route: IVP; Site: right antecubital; ph 11:00 Follow up: Response: No adverse reaction ph Disposition Summary: 03/20/22 12:32 Discharge Ordered Location: Home rn Problem: an ongoing problem rn Symptoms: have improved rn Condition: Stable rn Diagnosis - Nausea rn Followup: rn - With: Lee Perrin MD - When: Upon discharge from the Emergency Department - Reason: Recheck today's complaints, Re-evaluation by your physician Discharge Instructions: - Discharge Summary Sheet rn - Nausea, Adult rn Forms: - Medication Reconciliation Form rn - Thank You Letter rn - Antibiotic health information internship - Prescription Opioid Use rn Signatures: Dispatcher [employer] Dm Gandhi MD MD rn Hall, Patricia, RN RN ph
[2022-03-20 13:07] VITALS: TEMP 97.5
[2022-03-20 13:12] VITALS: BP 113/70; O2SAT 100
== END 2022-03-20 13:02 | disposition home or self-care (01) ==
LOC: ER 08:52
DX: R11.0 Nausea (principal); Z20.822 Contact with and (suspected) exposure to COVID-19; E11.9 Type 2 diabetes mellitus without complications; I10 Essential (primary) hypertension; Z79.4 Long term (current) use of insulin; Z88.5 Allergy status to narcotic agent
CPT/HCPCS: 36415; 80053; 81003; 83690; 85025; 96361; 96374; 96375; 99284; J2405; J2765; J7030

== ENCOUNTER 2023-02-12 13:05 | Emergency (ER) | payer OTHER ==
--- OUTSIDE RECORDS SUMMARY | 2023-02-12 13:08 | XMS REPORT | Continuity of Care Document ---
:1965 Author Organization [facility] t Address [address] [facility] [address] [place] [id number] Care Team Providers Name Role Phone ISA RAMIREZ Attending Clinician Unavailable EMIR MARTINEZ Attending Clinician Unavailable ROBIN MACEDO Attending Clinician Unavailable [id number] Attending Clinician Unavailable Payers Payer Name Policy Type Policy Number Effective Date Expiration Date S evonne NEISHA S[facility] 9 [id number] 2022 00:00:00 SILVER: HMO GAS [employer]AK [employer] HEL[employer] 94 ON STAND Problems Condition Condition Condition Status Onset Resolution Last Treating Co mments Source Name Details Category Date Date Treatment Clinician Date No known No known Disease Kelse y active active Seybold problems problems - Externa l Allergies, Adverse Reactions, Alerts Allergy Allergy Status Severity Reaction(s) Onset Inactive Treating Comm ents Source Name Type Date Date Clinician Tramadol Propensi Active 2019-07 Other Suzy ty to 0-13 reaction( Seybold adverse 00:00: s): - reaction 00 Itching/H Exter na s josef/Rash l Social History Social Habit Start Date Stop Date Quantity Comments Source Tobacco use and 2022-08-04 2022-08-04 Smokeless tobacco Yuri pérezey Seybold - exposure 00:00:00 00:00:00 non-user External Alcohol intake 2022-08-04 2022-08-04 Lifetime Suzy manuel - 00:00:00 00:00:00 non-drinker External (finding) Sex Ass[birth year] At [birth year] Suzy Michel ybold - 00:00:00 00:00:00 External Smoking Status Start Date Stop Date Source Never smoked tobacco Suzy Seyb old - External Medications Ordered Filled Start Stop Current Ordering Indication Dosage Frequency Signature Comments Components Source Medication Medication Date Date Medication? Clinician (SIG) Name Name Insulin NPH Yes 40U Inject 40 K elsey Isophane & 1-17 units into Sey bold Regular 11:36: the skin 2 - (NOVOLIN 15 times Externa 70/30 daily l FLEXPEN SC) Ondansetron 2021-07 Yes 1{tbl} Take 1 Ke lsey (ZOFRAN) 4 2-16 tablet by Seyb old MG oral 00:00: mouth as - TABLET 00 needed Externa DISPERSIBLE l Vital Signs Vital Name Observation Time Observation Value Comments Source Systolic blood 2022-08-04 17:33:00 142 mm[Hg] Suzy Seybold - pressure External Diastolic blood 2022-08-04 17:33:00 85 mm[Hg] Richar arnold Seybold - pressure External Heart rate 2022-08-04 17:33:00 80 /min Suzy S eybold - External Body temperature 2022-08-04 17:33:00 36.28 Sylvie Scarlett ey Seybold - External Respiratory rate 2022-08-04 17:33:00 14 /min Scarlett ey Seybold - External Body height 2022-08-04 17:33:00 157.5 cm Suzy S eybold - External Body weight 2022-08-04 17:33:00 117.935 kg Suzy S eybold - External BMI 2022-08-04 17:33:00 47.55 kg/m2 Suzy chengbold - External Oxygen saturation in 2022-08-04 17:33:00 99 /min Suzy Cutler - Arterial blood by External Pulse oximetry Procedures This patient has no known procedures. Encounters Start End Encounter Admission Attending Care Care Encounter Source Date/Time Date/Time Type Type Clinicians Facility Department ID 2022-11-26 2022-11-26 Outpatient SUZY RAMIREZ [id number] Suzy 00:00:00 00:00:00 ISA armijo 2022-10-06 2022-10-06 Outpatient SUZY MARTINEZ [id number] Suzy 11:30:00 11:30:00 EMIR armijo 2022-09-16 2022-09-16 Outpatient SUZY MACEDO [id number] Suzy 00:00:00 00:00:00 ROBIN Seybol d 2022-09-09 2022-09-09 Outpatient SUZY MACEDO [id number] Suzy 09:30:00 09:30:00 ROBIN Seybol d 2022-09-01 2022-09-01 Outpatient SUZY MACEDO [id number] Suzy 11:00:00 11:00:00 ROBIN Seybol d 2022-08-09 2022-08-09 Outpatient SUZY MACEDO [id number] Suzy 00:00:00 00:00:00 ROBIN Seybol d 2022-08-07 2022-08-07 Outpatient LAB90 SUZY ALMONTE [id number] Suzy 08:10:00 08:10:00 Seybol d 2022-08-07 2022-08-07 Outpatient SUZY RAMIREZ [id number] Suzy 00:00:00 00:00:00 ISA Seybol d 2022-08-07 2022-08-07 Outpatient SUZY RAMIREZ [id number] Suzy 00:00:00 00:00:00 ISA Seybol d 2022-08-04 2022-08-04 Outpatient SUZY MACEDO [id number] Suzy 11:00:00 11:00:00 ROBIN Seybol d Results This patient has no known results.
[2023-02-12] MEDS ORDERED: MECLIZINE HCL 12.5 MG TAB ONE (13:46)
--- NOTE | 2023-02-12 14:29 | ER ---
Nurse's Notes [facility] Name: Ning Kirk Age: 57 yrs Sex: Female : 1965 Arrival Date: 02/12/2023 Time: 13:05 Bed 2 Private MD: Diagnosis: Dizziness;Essential (primary) hypertension Presentation: 02/12 13:19 Chief complaint: Dizziness, N/V, and generalized weakness upon waking today. hb Coronavirus screen: At this time, the client does not indicate any symptoms associated with coronavirus-19. Ebola Screen: No symptoms or risks identified at this time. Initial Sepsis Screen: Does the patient meet any 2 criteria? No. Patient's initial sepsis screen is negative. Does the patient have a suspected source of infection? No. Patient's initial sepsis screen is negative. Risk Assessment: Do you want to hurt yourself or someone else? Patient reports no desire to harm self or others. Onset of symptoms was February 12, 2023. 13:19 Method Of Arrival: Ambulatory hb 13:19 Acuity: HERACLIO 3 hb Triage Assessment: 13:20 General: Appears in no apparent distress. obese, Behavior is cooperative, appropriate jl7 for age, anxious. Pain: Denies pain. EENT: No deficits noted. Neuro: Reports dizziness. Cardiovascular: No deficits noted. Respiratory: No deficits noted. GI: Reports nausea. : No signs and/or symptoms were reported regarding the genitourinary system. Derm: No deficits noted. Musculoskeletal: No deficits noted. Historical: - Allergies: 13:20 tramadol; hb - Home Meds: 13:20 Insulin: Humulin 70/30 Sub-Q [Active]; losartan Oral [Active]; atorvastatin oral hb [Active]; - PMHx: 13:20 Diabetes - IDDM; HTN; Pulmonary Embolism; hb Screenin:04 [facility] ED Fall Risk Assessment (Adult) History of falling in the last 3 months, jl7 including since admission No falls in past 3 months (0 pts). Abuse screen: Denies threats or abuse. Denies injuries from another. Nutritional screening: No deficits noted. Tuberculosis screening: No symptoms or risk factors identified. Assessment: 13:20 General: SEE TRIAGE NOTE. GI: Abdomen is non-distended. jl7 Vital Signs: 13:19 BP 188 / 114; Pulse 83; Resp 18; Temp 98.4; Pulse Ox 100% on R/A; Weight 105.23 kg; hb Height 5 ft. 2 in. ; Pain 0/10; 13:19 Body Mass Index 42.43 (105.23 kg, 157.48 cm) hb 13:19 Pain Scale: Adult hb ED Course: 13:08 Patient arrived in ED. ts1 13:11 James Ron DO is Attending Physician. ms3 13:16 Antony Pyle, RN is Primary Nurse. bp 13:20 Triage completed. hb 13:21 Arm band placed on. hb 14:04 Patient has correct armband on for positive identification. Bed in low position. Call jl7 light in reach. Side rails up X2. Administered Medications: 13:42 Drug: Meclizine PO 50 mg Route: PO; bp Outcome: 14:28 Discharge ordered by . ms3 14:43 Patient left the ED. hb Signatures: Carmen Martinez RN RN hb Meche White RN RN jl7 Antony Pyle, MARIOLA RN bp James Ron DO DO ms3 Silvia Peñaloza PAS PAS ts1 Corrections: (The following items were deleted from the chart) 13:21 13:20 PMHx: Diabetes - NIDDM; hb hb
--- NOTE | 2023-02-12 14:29 | EDPHYS ---
[facility] Name: Ning Kirk Age: 57 yrs Sex: Female : 1965 Arrival Date: 02/12/2023 Time: 13:05 Bed 2 Private MD: ED Physician James Ron HPI: 02/12 13:20 This 57 yrs old Black Female presents to ER via Ambulatory with complaints of ms3 Dizziness, Nausea/Vomiting. 13:20 57-year-old female with past medical history of hypertension, hyperlipidemia, diabetes ms3 presents for dizziness that is described as a room spinning when she awoke at 6:30 AM this morning. Patient states the dizziness is caused her to have nausea and vomiting. Patient states she took Zofran for the nausea and vomiting. Patient states symptoms are worse with movement of her head. Patient denies numbness, localized weakness, difficulty ambulating.. Historical: - Allergies: 13:20 tramadol; hb - Home Meds: 13:20 Insulin: Humulin 70/30 Sub-Q [Active]; losartan Oral [Active]; atorvastatin oral hb [Active]; - PMHx: 13:20 Diabetes - IDDM; HTN; Pulmonary Embolism; hb ROS: 13:20 Constitutional: Negative for fever, and chills. Neck: Negative for injury, pain, and ms3 swelling, Cardiovascular: Negative for chest pain, and palpitations. Respiratory: Negative for shortness of breath, cough, wheezing, and pleuritic chest pain, Abdomen/GI: Negative for abdominal pain, nausea, vomiting, diarrhea, and constipation, MS/Extremity: Negative for injury and deformity. 13:20 Neuro: Positive for dizziness. 13:20 All other systems are negative. Exam: 13:20 Constitutional: This is a well developed, well nourished patient who is awake, alert, ms3 and in no acute distress. Head/Face: Normocephalic, atraumatic. Neck: Trachea midline, no cervical lymphadenopathy. Supple, full range of motion without nuchal rigidity, or vertebral point tenderness. No Meningismus. Chest/axilla: Normal chest wall appearance and motion. Nontender with no deformity. Cardiovascular: Regular rate and rhythm with a normal S1 and S2. No gallops, murmurs, or rubs. Normal PMI, no JVD. No pulse deficits. Respiratory: Lungs have equal breath sounds bilaterally, clear to auscultation and percussion. No rales, rhonchi or wheezes noted. No increased work of breathing, no retractions or nasal flaring. Abdomen/GI: Soft, non-tender, with normal bowel sounds. No distension or tympany. No guarding or rebound. No evidence of tenderness throughout. Skin: Warm, dry with normal turgor. Normal color with no rashes, no lesions, and no evidence of cellulitis. MS/ Extremity: Pulses equal, no cyanosis. Neurovascular intact. Full, normal range of motion. 13:20 Neuro: Orientation: to person, place, time \T\ situation. Mentation: is normal, Memory: is normal, Cranial nerves: CN I not tested, CN II- XII are normal as tested, Cerebellar function: normal finger to nose testing, Motor: is normal, strength is 5/5 in all extremities, Sensation: is normal, Gait: is steady, at a normal pace. Vital Signs: 13:19 BP 188 / 114; Pulse 83; Resp 18; Temp 98.4; Pulse Ox 100% on R/A; Weight 105.23 kg; hb Height 5 ft. 2 in. ; Pain 0/10; 13:19 Body Mass Index 42.43 (105.23 kg, 157.48 cm) hb 13:19 Pain Scale: Adult hb MDM: 13:20 Differential diagnosis: idiopathic dizziness, vertigo. ms3 13:26 Patient medically screened. ms3 14:31 Data reviewed: vital signs, nurses notes, and as a result, I will discharge patient. I ms3 considered the following discharge prescriptions or medication management in the emergency department Medications were administered in the Emergency Department. See MAR. Independent interpretation of the following test(s) in the Emergency Department. Test considered but Not performed: CT: Patient with normal neurologic exam, finger-nose intact, ambulatory with steady gait. Fluid behind right tympanic membrane.. Counseling: I had a detailed discussion with the patient and/or guardian regarding: the historical points, exam findings, and any diagnostic results supporting the discharge/admit diagnosis, the need for outpatient follow up, to return to the emergency department if symptoms worsen or persist or if there are any questions or concerns that arise at home. Response to treatment: the patient's symptoms have resolved after treatment, and as a result, I will discharge patient. Special discussion: I discussed with the patient/guardian in detail that at this point there is no indication for admission to the hospital. It is understood, however, that if the symptoms persist or worsen the patient needs to return immediately for re-evaluation. ED course: Patient symptoms resolved after meclizine. Patient to follow-up with her primary care physician in 2 to 3 days. Patient understands agrees with plan. All questions were answered. Return precautions discussed include worsening symptoms, weakness, dizziness, difficulty walking, numbness, headache, or any other concerns.. Administered Medications: 13:42 Drug: Meclizine PO 50 mg Route: PO; bp Disposition Summary: 02/12/23 14:28 Discharge Ordered Location: Home ms3 Condition: Stable ms3 Diagnosis - Dizziness ms3 - Essential (primary) hypertension ms3 Followup: ms3 - With: Private Physician - When: 2 - 3 days - Reason: Recheck today's complaints Discharge Instructions: - Discharge Summary Sheet ms3 - Hypertension, Adult ms3 - Dizziness, [id number] ms3 Forms: - Medication Reconciliation Form ms3 - Thank You Letter ms3 - Antibiotic Education ms3 - Prescription Opioid Use ms3 - Patient Portal Instructions ms3 Prescriptions: - Flonase Allergy Relief 50 mcg/actuation Nasal spray, suspension - spray 2 spray by INTRANASAL route daily administer into each nostril; 11 ms3 milliliter; Refills: 0, Product Selection Permitted - Meclizine 25 mg Oral Tablet - take 1 tablet by ORAL route every 8 hours As needed; 30 tablet; Refills: 0, ms3 Product Selection Permitted - Claritin 10 mg Oral Tablet - take 1 tablet by ORAL route once daily As needed; 30 tablet; Refills: 0, ms3 Product Selection Permitted Signatures: Carmen Martinez RN RN Antony Rhodes RN RN bp Sims, Marcus, DO DO ms3 Corrections: (The following items were deleted from the chart) 13:21 13:20 PMHx: Diabetes - NIDDM; hb hb
[2023-02-12 14:48] VITALS: BP 188/114; TEMP 98.4; O2SAT 100
== END 2023-02-12 14:43 | disposition home or self-care (01) ==
LOC: ER 13:05
DX: R42 Dizziness and giddiness (principal); I10 Essential (primary) hypertension; E11.9 Type 2 diabetes mellitus without complications; Z79.4 Long term (current) use of insulin; Z88.5 Allergy status to narcotic agent
CPT/HCPCS: 99282; J8597

== ENCOUNTER 2025-03-08 07:10 | Inpatient (IN) | payer OTHER ==
--- OUTSIDE RECORDS SUMMARY | 2025-03-08 07:14 | XMS REPORT | Continuity of Care Document ---
Author Name Unknown Address [address] [place] [address] [address] [place] [address] [facility] Address [address] [place] [address] [address] [place] [address] Care Team Providers Care Pain Medicine Physician Name Role Phone RENATO PIKE Attending Clinician UnavailPATI Parry Attending Clinician Unavailable LAB90 Attending Clinician Unavailable ROBIN MACEDO Attending Clinician UnaMINI Thayer Attending Clinician Unavailab FRANCY Garcia [facility] Attending Clinicia n Unavailable ISA RAMIREZ Attending Clinician Unavailable EMIR MARTINEZ Attending Clinician Unavailable Payers Payer Name Policy Type Policy Number Effective Date Expirati on Date Source GORIN 5 [facility] 94 9 [id number] 2025 00:00:00 Problems Condition Name Condition Details Condition Category Status Onset Date Resolution Date Last Treatment Date Treating Clinician Comments Source Primary hypertensi on - Controlled Primary hypertensi on - Controlled Disease Active 2022-07 00:00: 00 Francy russell Type 2 diabetes mellitus treated with insulin (multi HCC) - Not Controlled Type 2 diabetes mellitus treated with insulin (multi HCC) - Not Controlled Disease Active 2022-07 00:00: 00 Francy russell Immunodefi ciency due to poorly controlled type 2 diabetes (CMS/HCC) (multi HCC) - Not Controlled Immunodefi ciency due to poorly controlled type 2 diabetes (CMS/HCC) (multi HCC) - Not Controlled Disease Active 2022-07 00:00: 00 Francy russell No known active problems No known active problems Disease Francy Cutler - Externa l Allergies, Adverse Reactions, Alerts Allergy Name Allergy Type Status Severity Reaction(s) Onset Date Inactive Date Treating Clinician Comments Source Tramadol Propensi ty to adverse reaction s Active 2019-07 00:00: 00 Other reaction( s): Itching/H josef/Rash Francy He - Externa l Social History Social Habit Start Date Stop Date Quantity Comments Source ASSERTION Not Francy Cutler - External Sexual orientation Iliana Cutler - External Alcoholic beverage intake 2025-01-26 00:00:00 2025-01-26 00:00:00 Lifetime non-drinker (finding) Francy Cutler - External History of Social function 2023-04-15 00:00:00 2023-04-15 00:00:00 Francy Cutler - External Alcohol intake 2023-04-15 00:00:00 2023-04-15 00:00:00 Lifetime non-drinker (finding) Francy Cutler - External Tobacco use and exposure 2022-08-04 00:00:00 2022-08-04 00:00:00 Smokeless tobacco non-user Francy Cutler - External Sex 2022-07-16 15:58:53 2022-07-16 15:58:53 Female (finding) Francy Cutler - External Sex [birth year] at 1965 00:00:00 1965 00:00:00 Francy Cutler - External Smoking Status Start Date Stop Date Source Never smoked tobacco Francyrenu Cutler - External Medications Ordered Medication Name Filled Medication Name Start Date Stop Date Current Medication? Ordering Clinician Indication Dosage Frequency Signature (SIG) Comments Components Source Dulaglutide (Trulicity) 1.5 MG/0.5ML subcutaneou s Solution Auto-inject or 01-26 00:00: 00 Yes [id number] 1.5mg Q1W Inject 1.5 mg into the skin once a week. Francy Cutelr - Externa l Ondansetron (ZOFRAN) 8 MG oral TABLET DISPERSIBLE 01-26 00:00: 00 Yes [id number] 8mg Q.[id number] 3D Take 1 tablet (8 mg total) by mouth every 8 hours as needed for nausea. Francy russell INSULIN ASP PROT & ASP MIX, HUM, (70-30) 100 UNIT/ML subcutaneou s Suspension 11-22 13:58: 08 11-22 00:00 :00 No Inject into the skin 45 units. Francy russell Continuous Glucose Sensor (Dexcom G7 Sensor) does not apply Misc 11-22 00:00: 00 Yes [id number] Use as directed.. Francy russell INSULIN ASP PROT & ASP MIX, HUM, (NovoLOG Mix 70/30) (70-30) 100 UNIT/ML subcutaneou s Suspension 11-22 00:00: 00 Yes [id number] Take 10-15 units twice a day with a meal.. Francy russell Losartan Potassium (COZAAR) 50 MG oral Tablet 11-22 00:00: 00 Yes [id number] 50mg QD Take 1 tablet (50 mg total) by mouth daily. Francy russell Ondansetron (ZOFRAN) 8 MG oral TABLET DISPERSIBLE 11-22 00:00: 00 01-26 00:00 :00 No [id number] 8mg Q.[id number] 3D Take 1 tablet (8 mg total) by mouth every 8 hours as needed for nausea. Francy russell Dulaglutide (Trulicity) 0.75 MG/0.5ML subcutaneou s Solution Auto-inject or 11-07 00:00: 00 01-26 00:00 :00 No [id number] .75mg Q1W Inject 0.75 mg into the skin once a week. Francy russell Insulin Aspart Prot & Aspart (70-30) 100 UNIT/ML SC SUPN 10-20 13:41: 39 10-20 00:00 :00 No Q.5D Inject into the skin in the morning and in the evening. 45 units. Francy russell Trulicity 1.5 MG/0.5ML subcutaneou s Solution Auto-inject or 10-20 00:00: 00 Yes [id number] 1.5mg Q1W Inject 1.5 mg into the skin once a week. Francy russell hydroCHLORO thiazide 12.5 MG oral Capsule 10-20 00:00: 00 Yes [id number] 12.5mg QD Take 1 capsule (12.5 mg total) by mouth daily. Francy russell Continuous Glucose Sensor (Dexcom G7 Sensor) does not apply Misc 10-20 00:00: 00 11-22 00:00 :00 No [id number] Use as directed.. Francy russell Ondansetron (ZOFRAN) 8 MG oral TABLET DISPERSIBLE 10-04 00:00: 00 11-22 00:00 :00 No [id number] 8mg Q.82040259 [id number] 3D Take 1 tablet (8 mg total) by mouth every 8 hours as needed for nausea. Francy russell Dulaglutide (Trulicity) 0.75 MG/0.5ML subcutaneou s Solution Auto-inject or 10-04 00:00: 00 10-20 00:00 :00 No [id number] 3 .75mg Q1W Inject 0.75 mg into the skin once a week. Francy russell Insulin Aspart Prot & Aspart (70-30) 100 UNIT/ML SC SUPN 09-15 13:52: 14 Yes Q.5D Inject into the skin 2 times daily 45 units. Francy russell Ondansetron (ZOFRAN) 4 MG oral TABLET DISPERSIBLE 09-15 00:00: 00 Yes [id number] 8mg Q.[id number] 3D Take 2 tablets (8 mg total) by mouth every 8 hours as needed for nausea. Francy russell Continuous Glucose Success Coach (Dexcom G7 Success Coach) does not apply Device 09-15 00:00: 00 Yes [id number] Use as directed. Francy russell OZEMPIC (0.25 or 0.5 mg/dose) 2 mg/3 mL SQ Solution Pen-Injecto r 09-15 00:00: 00 11-11 04:59 :00 No [id number] .25mg Q1W Inject 0.25 mg into the skin once a week. Francy russell Continuous Glucose Sensor (Dexcom G7 Sensor) does not apply Misc 09-15 00:00: 00 10-20 00:00 :00 No [id number] Use as directed.. Francy russell Insulin Aspart Prot & Aspart (70-30) 100 UNIT/ML SC SUPN 08-15 13:22: 52 Yes Q.5D Inject into the skin 2 times daily 45 units. Francy russell Dulaglutide (Trulicity) 0.75 MG/0.5ML subcutaneou s Solution Auto-inject or 08-15 00:00: 00 Yes [id number] 3 .75mg Q1W Inject 0.75 mg into the skin once a week. Francy russell Cetirizine (ZyrTEC Allergy) 10 MG oral Tablet 08-15 00:00: 00 Yes [id number] 10mg QD Take 1 tablet (10 mg total) by mouth daily. Francy russell Losartan Potassium (COZAAR) 100 MG oral Tablet 08-15 00:00: 00 11-22 00:00 :00 No [id number] 100mg QD Take 1 tablet (100 mg total) by mouth daily. Francy russell Benzonatate 200 MG oral Capsule 08-15 00:00: 00 09-15 00:00 :00 No [id number] 200mg Q.[id number] 3D Take 1 capsule (200 mg total) by mouth 3 times daily as needed for cough. Francy russell Ondansetron (ZOFRAN) 4 MG oral TABLET DISPERSIBLE 08-15 00:00: 00 09-15 00:00 :00 No [id number] 4mg Q.13328856 [id number] 3D Take 1 tablet (4 mg total) by mouth every 8 hours as needed for nausea. Francy russell Azithromyci n 250 MG oral Tablet 08-15 00:00: 00 08-21 05:59 :00 No [id number] Take 2 tablets by mouth on day 1 then 1 tablet by mouth daily for 4 days thereafter .. Francy russell Trulicity 0.75 MG/0.5ML subcutaneou s Solution Pen-injecto r 01-02 00:00: 00 08-15 00:00 :00 No [id number] .75mg Q1W Inject 0.75 mg into the skin once a week. Francy russell INSULIN ASP PROT & ASP MIX, HUM, (70-30) 100 UNIT/ML subcutaneou s Suspension 12-30 15:29: 10 Yes Inject into the skin 45 units. Francy russell Insulin Aspart Prot & Aspart (70-30) 100 UNIT/ML SC SUPN 12-30 15:27: 25 Yes Inject into the skin 2 times daily 45 units. Francy russell Atorvastati n Calcium (Lipitor) 40 MG oral Tablet 12-30 00:00: 00 Yes [id number] 40mg QD Take 1 tablet (40 mg total) by mouth daily. Francy russell INSULIN ASP PROT & ASP MIX, HUM, (NovoLOG Mix 70/30) (70-30) 100 UNIT/ML subcutaneou s Suspension 12-30 00:00: 00 11-22 00:00 :00 No [id number] Take 45 units twice a day. Francy russell Empaglifloz in (Jardiance) 10 MG oral Tablet 12-30 00:00: 00 08-15 00:00 :00 No [id number] 10mg QD Take 1 tablet (10 mg total) by mouth daily. Francy russell Ondansetron (ZOFRAN) 4 MG oral TABLET DISPERSIBLE 12-30 00:00: 00 08-15 00:00 :00 No [id number] 4mg Q.[id number] 3D Take 1 tablet (4 mg total) by mouth every 8 hours as needed for nausea. Francy russell Phentermine HCl 37.5 MG oral Tablet 12-30 00:00: 00 08-15 00:00 :00 No [id number] 37.5mg Take 1 tablet (37.5 mg total) by mouth every morning (before breakfast) . Francy russell INSULIN ISOPHANE & REG MIX, HUMAN, (HUMULIN MIX 70/30) (70-30) 100 UNIT/ML subcutaneou s Suspension 10-05 00:00: 00 08-15 00:00 :00 No [id number] Take 45 units in the morning and 45 units in the evening. Francy russell Insulin NPH Isophane & Regular (NOVOLIN 70/30 FLEXPEN SC) 04-15 09:20: 15 Yes 40U Inject 40 units into the skin 2 times daily Francy russell INSULIN ISOPHANE & REG MIX, HUMAN, (HUMULIN MIX 70/30) (70-30) 100 UNIT/ML subcutaneou s Suspension 04-15 00:00: 00 Yes [id number] Take 45 units in the morning and 45 units in the evening. Francy russell Losartan Potassium (COZAAR) 50 MG oral Tablet 04-15 00:00: 00 08-15 00:00 :00 No [id number] 50mg QD Take 1 tablet (50 mg total) by mouth daily. Francy russell Ondansetron HCl 4 MG oral Tablet 04-15 00:00: 00 08-15 00:00 :00 No [id number] 4mg Q.[id number] 3D Take 1 tablet (4 mg total) by mouth every 8 hours as needed for nausea. Francy russell Empaglifloz in (Jardiance) 10 MG oral Tablet 04-15 00:00: 12-30 00:00 :00 No [id number] 10mg Take 1 tablet (10 mg total) by mouth daily. Francy russell Ondansetron (ZOFRAN) 4 MG oral TABLET DISPERSIBLE 04-15 00:00: 00 12-30 00:00 :00 No [id number] 4mg Take 1 tablet (4 mg total) by mouth as needed. Francy russell Amoxicillin -Pot Clavulanate 875-125 MG oral Tablet 04-15 00:00: 00 12-30 00:00 :00 No [id number] 1{tbl} Take 1 tablet by mouth 2 times daily. Francy russell Acetaminoph en-Codeine 300-30 MG oral Tablet 04-15 00:00: 00 12-30 00:00 :00 No [id number] 1{tbl} Q.25D Take 1 tablet by mouth every 6 hours as needed for pain. Francy russell TRIMETHOPRI M-SULFAMETH OXAZOLE (BACTRIM DS) 800-160 MG oral Tablet 04-15 00:00: 00 04-26 04:59 :00 No [id number] 1{tbl} Take 1 tablet by mouth 2 times daily for 10 days. Francy russell FLUTICASONE PROPIONATE, NASAL, 50 MCG/ACT nasal Suspension 02-13 00:00: 00 Yes 100ug QD Use 2 sprays (100 mcg total) in each nostril daily. Francy russell Meclizine HCl 25 MG oral Tablet 02-13 00:00: 00 08-15 00:00 :00 No 25mg Q.[id number] 3D Take 1 tablet (25 mg total) by mouth every 8 hours as needed. Francy russell Atorvastati n Calcium (Lipitor) 40 MG oral Tablet 08-09 00:00: 00 12-30 00:00 :00 No [id number] 40mg Take 1 tablet (40 mg total) by mouth daily Francy russell Nitrofurant oin Monohyd Macro 100 MG oral Capsule 08-09 00:00: 00 04-15 00:00 :00 No [id number] 100mg Take 1 capsule (100 mg total) by mouth 2 times daily Francy russell Insulin NPH Isophane & Regular (NOVOLIN 70/30 FLEXPEN SC) 08-04 11:36: 15 Yes 40U Inject 40 units into the skin 2 times daily Francy russell Atorvastati n Calcium 20 MG oral Tablet 08-04 00:00: 00 04-15 00:00 :00 No 20mg Take 1 tablet (20 mg total) by mouth daily. Francy russell Losartan Potassium (COZAAR) 50 MG oral Tablet 08-04 00:00: 00 04-15 00:00 :00 No 50mg Take 1 tablet (50 mg total) by mouth daily. Francy russell Ondansetron (ZOFRAN) 4 MG oral TABLET DISPERSIBLE 2021-07 00:00: 00 Yes 1{tbl} Take 1 tablet by mouth as needed Francy russell Ondansetron (ZOFRAN) 4 MG oral TABLET DISPERSIBLE 2021-07 00:00: 00 04-15 00:00 :00 No 4mg Take 1 tablet (4 mg total) by mouth as needed. Francy russell Vital Signs Vital Name Observation Time Observation Value Comments S ource Systolic blood pressure 2025-01-26 18:49:00 134 mm[Hg] Francy Wolff External Diastolic blood pressure 2025-01-26 18:49:00 80 mm[Hg] Francy Wolff External Heart rate 2025-01-26 18:49:00 89 /min Francy Wolff External Body temperature 2025-01-26 18:49:00 36.5 Sylvie Francy Wolff External Respiratory rate 2025-01-26 18:49:00 15 /min Francy Wolff External Body height 2025-01-26 18:49:00 157.5 cm Francy Seybold - External Body weight 2025-01-26 18:49:00 128.368 kg Francy Seybold - External BMI 2025-01-26 18:49:00 51.76 kg/m2 Francy Seybold - External Oxygen saturation in Arterial blood by Pulse oximetry 2025-01-26 18:49:00 97 /min Francy Seybold - External Systolic blood pressure 2024-10-20 18:42:00 140 mm[Hg] Francy Seybold - External Diastolic blood pressure 2024-10-20 18:42:00 86 mm[Hg] Francy Seybold - External Heart rate 2024-10-20 18:36:00 90 /min Francy Seybold - External Body temperature 2024-10-20 18:36:00 36.11 Sylvie Francy Seybold - External Respiratory rate 2024-10-20 18:36:00 14 /min Francy Seybold - External Body height 2024-10-20 18:36:00 157.5 cm Francy Seybold - External Body weight 2024-10-20 18:36:00 127.461 kg Francy Seybold - External BMI 2024-10-20 18:36:00 51.40 kg/m2 Francy Seybold - External Oxygen saturation in Arterial blood by Pulse oximetry 2024-10-20 18:36:00 93 /min Francy Seybold - External Systolic blood pressure 2024-09-15 19:47:00 130 mm[Hg] patient has not taken blood pressure medication today Francy Seybold - External Diastolic blood pressure 2024-09-15 19:47:00 84 mm[Hg] patient has not taken blood pressure medication today Francy Seybold - External Heart rate 2024-09-15 19:47:00 83 /min Francy Seybold - External Body temperature 2024-09-15 19:47:00 36.39 Sylvie Francy Seybold - External Respiratory rate 2024-09-15 19:47:00 14 /min Francy Seybold - External Body height 2024-09-15 19:47:00 157.5 cm Francy Seybold - External Body weight 2024-09-15 19:47:00 122.925 kg Fracny Seybold - External BMI 2024-09-15 19:47:00 49.57 kg/m2 Francy Seybold - External Oxygen saturation in Arterial blood by Pulse oximetry 2024-09-15 19:47:00 97 /min Francy Seybold - External Systolic blood pressure 2024-08-15 19:24:00 158 mm[Hg] Francy Seybold - External Diastolic blood pressure 2024-08-15 19:24:00 86 mm[Hg] Francy Seybold - External Heart rate 2024-08-15 19:16:00 84 /min Francy Seybold - External Body temperature 2024-08-15 19:16:00 35.83 Sylvie Francy Seybold - External Respiratory rate 2024-08-15 19:16:00 14 /min Francy Seybold - External Body height 2024-08-15 19:16:00 157.5 cm Francy Seybold - External Body weight 2024-08-15 19:16:00 126.554 kg Francy Seybold - External BMI 2024-08-15 19:16:00 51.03 kg/m2 Francy Seybold - External Oxygen saturation in Arterial blood by Pulse oximetry 2024-08-15 19:16:00 97 /min Francy Seybold - External Systolic blood pressure 2023-12-31 20:22:00 126 mm[Hg] Francy Seybold - External Diastolic blood pressure 2023-12-31 20:22:00 80 mm[Hg] Francy Seybold - External Heart rate 2023-12-31 20:22:00 80 /min Francy Seybold - External Body temperature 2023-12-31 20:22:00 36.56 Sylvie Francy Seybold - External Respiratory rate 2023-12-31 20:22:00 18 /min Francy Seybold - External Body height 2023-12-31 20:22:00 157.5 cm Francy Seybold - External Body weight 2023-12-31 20:22:00 128.822 kg Francy Seybold - External BMI 2023-12-31 20:22:00 51.94 kg/m2 Francy Seybold - External Oxygen saturation in Arterial blood by Pulse oximetry 2023-12-31 20:22:00 98 /min Francy Seybold - External Systolic blood pressure 2023-04-15 14:07:00 138 mm[Hg] Francy Seybold - External Diastolic blood pressure 2023-04-15 14:07:00 84 mm[Hg] Francy Seybold - External Heart rate 2023-04-15 14:07:00 80 /min Francy Seybold - External Body temperature 2023-04-15 14:07:00 36.89 Sylvie Francy Seybold - External Respiratory rate 2023-04-15 14:07:00 18 /min Francy Seybold - External Body height 2023-04-15 14:07:00 157.5 cm Francy Seybold - External Body weight 2023-04-15 14:07:00 124.059 kg Francy Seybold - External BMI 2023-04-15 14:07:00 50.02 kg/m2 Francy Seybold - External Oxygen saturation in Arterial blood by Pulse oximetry 2023-04-15 14:07:00 100 /min Francy Seybold - External Systolic blood pressure 2022-08-04 17:33:00 142 mm[Hg] Francy Seybold - External Diastolic blood pressure 2022-08-04 17:33:00 85 mm[Hg] Francy Seybold - External Heart rate 2022-08-04 17:33:00 80 /min Francy Seybold - External Body temperature 2022-08-04 17:33:00 36.28 Sylvie Francy Seybold - External Respiratory rate 2022-08-04 17:33:00 14 /min Francy Seybold - External Body height 2022-08-04 17:33:00 157.5 cm Francy Seybold - External Body weight 2022-08-04 17:33:00 117.935 kg Francy Seybold - External BMI 2022-08-04 17:33:00 47.55 kg/m2 Francy Seybold - External Oxygen saturation in Arterial blood by Pulse oximetry 2022-08-04 17:33:00 99 /min Francy Seybold - External Encounters Start Date/Time End Date/Time Encounter Type Admission Type Attending [facility] Care Department Encounter ID Source 2025-02-09 14:00:00 2025-02-09 14:00:00 Outpatient SHAHZAD, GROSS FRANCYRENU SEN [id number] Francy Seybskyla 2025-01-26 14:00:00 2025-01-26 14:00:00 Outpatient HUNDL, PATIUzair SEN [id number] Francy Michelybskyla 2025-01-26 00:00:00 2025-01-26 00:00:00 Outpatient FRANCY SEN [id number] [facility] 2024-12-22 14:00:00 2024-12-22 14:00:00 Outpatient HUNDL, PATI FRANCY SEN [id number] [facility] 2024-12-01 00:00:00 2024-12-01 00:00:00 Outpatient HUNDL, PATI SEN [id number] [facility] 2024-11-27 13:50:00 2024-11-27 13:50:00 Outpatient LAB90 FRANCY SEN [id number] [facility] 2024-11-27 00:00:00 2024-11-27 00:00:00 Outpatient HUNDL, PATI FRANCY SEN [id number] [facility] 2024-11-22 13:30:00 2024-11-22 13:30:00 Outpatient HUNDL, PATI SEN [id number] [facility] 2024-10-20 14:00:00 2024-10-20 14:00:00 Outpatient HUNDL, PATI SEN [id number] [facility] 2024-10-20 00:00:00 2024-10-20 00:00:00 Outpatient HUNDL, PATI SEN [id number] Francy Seybold 2024 00:00:00 2024 00:00:00 Outpatient HUNDL, PATI SEN [id number] Francy Seybold 2024-09-28 00:00:00 2024-09-28 00:00:00 Outpatient HUNDL, PATI SEN [id number] Francy Seybold 2024-09-15 14:00:00 2024-09-15 14:00:00 Outpatient HUNDL, PATI SEN [id number] Francy Seybold 2024-08-17 08:10:00 2024-08-17 08:10:00 Outpatient LAB90 RFANCY SEN [id number] [facility] 2024-08-15 13:30:00 2024-08-15 13:30:00 Outpatient PATI WIGGINS FRANCY SEN [id number] [facility] 2024-04-09 00:00:00 2024-04-09 00:00:00 Outpatient ROBIN MACEDO [id number] [facility] 2024-02-28 15:00:00 2024-02-28 15:00:00 Outpatient MENDOZA MINI FRANCY SEN [id number] [facility] 2024-02-11 13:30:00 2024-02-11 13:30:00 [id number] [facility]24-02-11 00:00:00 2024-02-11 00:00:00 Outpatient , FRANCY SEN [id number] [facility] 2024-01-28 16:00:00 2024-01-28 16:00:00 Outpatient MINI DONALDSON [id number] [facility] 2023-12-31 16:15:00 2023-12-31 16:15:00 Outpatient LAB90 FRANCY SEN [id number] [facility] 2023-12-31 15:30:00 2023-12-31 15:30:00 Outpatient ROBIN MACEDO [id number] [facility] 2023-12-01 13:45:00 2023-12-01 13:45:00 Outpatient ROBIN MACEDO [id number] [facility] 2023-10-06 00:00:00 2023-10-06 00:00:00 Outpatient ISA RAMIREZ [id number] [facility] 2023-09-29 00:00:00 2023-09-29 00:00:00 Outpatient ROBIN MACEDO [id number] [facility] 2023-09-27 00:00:00 2023-09-27 00:00:00 Outpatient ROBIN MACEDO FRANCY SEN [id number] [facility] 2023-06-23 00:00:00 2023-06-23 00:00:00 Outpatient ROBIN MACEDO FRANCY SEN [id number] [facility] 2023-04-19 13:30:00 2023-04-19 13:30:00 Outpatient ROBIN MACDEO FRANCY SEN [id number] [facility] 2023-04-19 11:45:00 2023-04-19 11:45:00 Outpatient ROBIN MACEDO FRANCY SEN [id number] [facility] 2023-04-16 13:30:00 2023-04-16 13:30:00 Outpatient REMINGTON, ROBIN FRANCY SEN [id number] [facility] 2023-04-15 10:15:00 2023-04-15 10:15:00 Outpatient LAB90 FRANCY SEN [id number] [facility] 2023-04-15 09:45:00 2023-04-15 09:45:00 Outpatient ROBIN MACEDO FRANCY SEN [id number] [facility] 2023-04-15 09:00:00 2023-04-15 09:00:00 Outpatient ROBIN MACEDO FRANCY SEN [id number] [facility] 2023-04-12 09:00:00 2023-04-12 09:00:00 Outpatient REMINGTONROBIN FRANCY SEN [id number] [facility] 2022-11-26 00:00:00 2022-11-26 00:00:00 Outpatient ISA RAMIREZ [id number] [facility] 2022-10-06 11:30:00 2022-10-06 11:30:00 Outpatient EMIR MARTINEZ [id number] [facility] 2022-09-16 00:00:00 2022-09-16 00:00:00 [facility] [id number] [facility] 2022-09-09 09:30:00 2022-09-09 09:30:00 Outpatient ROBIN MACEDO FRANCY [id number] [facility] 2022-09-01 11:00:00 2022-09-01 11:00:00 Outpatient ROBIN MACEDO FRANCY [id number] [facility] 2022-08-09 00:00:00 2022-08-09 00:00:00 Outpatient ROBIN MACEDO FRANCY [id number] [facility] 2022-08-07 08:10:00 2022-08-07 08:10:00 Outpatient RENARD SEN FRANCY [id number] [facility] 2022-08-07 00:00:00 2022-08-07 00:00:00 Outpatient MORALESISA CAMP FRANCY FRANCY [id number] [facility] 2022-08-07 00:00:00 2022-08-07 00:00:00 Outpatient ISA RAMIREZ FRANCY SEN [id number] [facility] 2022-08-04 11:00:00 2022-08-04 11:00:00 Outpatient ROBIN MACEDO FRANCY SEN [id number] [facility] Notes Date/Time Note Provider Source 2025-01-26 13:52:45 Chief Complaint Patient presents with Diabetes Diabetic follow up Mihaela Hagan MA Mihaela SenHe [facility] 2024-10-20 13:38:01 Chief Complaint Patient presents with Diabetes Diabetic follow up Mihaela Hagan MA Mihaela SenHe [facility] 2024-09-15 13:51:16 Chief Complaint Patient presents with Diabetes Diabetic follow up Mihaela Hagan [employer] Mihaela Johansen [facility] 2024-08-15 13:21:29 Chief Complaint Patient presents with Diabetes Diabetic follow up Mihaela Hagan [employer] Mihaela Hagan MA [facility] 2023-12-31 15:32:38 Chief Complaint Patient presents with Diabetes Is out of insulin Sarah Orosco LVN T [facility]
[2025-03-08] MEDS ORDERED: ONDANSETRON 4 MG/2 ML VIAL ONE (07:45)
[2025-03-08] MEDS ORDERED: FAMOTIDINE 20 MG/2 ML VIAL IV ONE (07:46)
[2025-03-08] MEDS ORDERED: NA CHLORIDE 0.9% 1,000 ML ONE (07:46)
[2025-03-08 08:11] LABS: Absolute Lymphocytes (CBC) 1.8 K/uL (0.7-4.9); Hematocrit 36.4 % (36.0-45.0); Hemoglobin 12.1 g/dL (12.0-15.0); MCH 28.5 pg (27.0-35.0); MCHC 33.2 g/dL (32.0-36.0); MCV 85.6 fL (80-100); MPV 8.9 fL (7.6-11.3); Nucleated RBC Absolute Count 0.0 (0-0); Nucleated Red Blood Cells % 0.0 % (0-0); RBC Red Blood Cell Count 4.26 M/uL (3.86-4.86); White Blood Count 8.50 thou/uL (4.3-10.9)
[2025-03-08 08:14] LABS: PT Prothrombin Time 14.1 SECONDS (10-13.0); Protime INR 1.26
--- NOTE | 2025-03-08 08:17 | RAD REPORT ---
Procedure: Chest Single View HISTORY: Abdominal pain COMPARISON: 2021 FINDINGS: The lungs appear clear of acute infiltrate. No significant pleural effusion noted. The heart is mildly enlarged.. IMPRESSION: No acute abnormality is displayed.
[2025-03-08] MEDS ORDERED: PROMETHAZINE INJ 25 MG/ML AMP ONE (08:29)
[2025-03-08] MEDS ORDERED: NA CHLORIDE 0.9% 100 ML ONE (08:35)
[2025-03-08 09:01] LABS: ALT/SGPT 42 U/L (13-56); AST/SGOT 19 U/L (15-37); Albumin 3.4 g/dL (3.4-5.0); Albumin/Globulin Ratio 0.7 (1.1-1.8); Alkaline Phosphatase 185 U/L (45-117); Anion Gap 9.9 mEq/L (5.0-15.0); BUN Blood Urea Nitrogen 12 mg/dL (7-18); Globulin 4.7 g/dL (2.3-3.5); Glucose Level 187 mg/dL (74-106); Lipase 47 U/L (13-75); Magnesium 1.9 mg/dL (1.6-2.4); NT PRO-BNP 202 pg/mL (<125); Potassium 3.9 mEq/L (3.5-5.1); Troponin High Sensitivity 32.1 pg/mL (<58.9)
[2025-03-08 09:02] LABS: Bilirubin Indirect, Calculated 0.4 mg/dL (0.2-0.8)
--- NOTE | 2025-03-08 10:08 | RAD REPORT ---
EXAMINATION: CT ABDOMEN AND PELVIS WITH CONTRAST CLINICAL INDICATION: Abdominal pain TECHNIQUE: CT abdomen and pelvis was performed, after the administration of 100 cc Isovue-300.. Sagit pilar and coronal reconstructions were obtained. One or more of the following dose reduction techniques were used: Automated exposure control, adjustment of the mA and kV according to patient si ze, and iterative reconstruction. Unless otherwise specified, incidental findings do not require dedicated imaging follow-up. [id number]. Oral contrast was not given which limits evaluation of bowel and appendix. COMPARISON: .None FINDINGS: Mild fatty liver. The spleen, pancreas, adrenals unremarkable. Small bilateral renal cysts. Small umbilical hernia. Small ventral hernia. No evidence of diverticulitis. Multiple gallstones. Gallbladder wall not thickened. 5.2 cm cystic mass left adnexa unchanged from 2019 is benign. No follow-up imaging recommended. Perio d small calcifications uterus.. Uterine fibroid suspected : IMPRESSION: Stable 5.2 cm cystic mass left adnexa without significant free fluid Cholelithiasis without evidence cholecystitis
--- NOTE | 2025-03-08 10:11 | ER ---
Nurse's Notes [facility] Name: Ning Kirk Age: 59 yrs Sex: Female : 1965 Arrival Date: 03/08/2025 Time: 07:10 Bed 8 Private MD: Diagnosis: Vomiting;Adverse effect of unspecified drugs, medicaments and biological substances;Type 1 diabetes mellitus with hyperglycemia;Essential (primary) hypertension;Obesity, unspecified;Other cholelithiasis without obstruction Presentation: 03/08 07:32 Chief complaint: Patient states: N/V that began yesterday. Pt believes it may be from ss her Trulicity dose, but is not certain. Coronavirus screen: Client denies travel out of the [place] in the last 14 days. Ebola Screen: Patient denies exposure to infectious person. Patient denies travel to an Ebola-affected area in the 21 days before illness onset. Initial Sepsis Screen: Does the patient meet any 2 criteria? No. Patient's initial sepsis screen is negative. Does the patient have a suspected source of infection? No. Patient's initial sepsis screen is negative. Risk Assessment: Do you want to hurt yourself or someone else? Patient reports no desire to harm self or others. Onset of symptoms was March 07, 2025. 07:32 Method Of Arrival: Ambulatory 07:32 Acuity: HERACLIO 3 Triage Assessment: 14:30 General: Appears in no apparent distress. obese, Behavior is appropriate for age. GI: bp Reports nausea, vomiting. Historical: - Allergies: 07:34 tramadol; - Home Meds: 07:34 losartan oral [Active]; atorvastatin oral [Active]; Trulicity subcutaneous [Active]; ss - PMHx: 07:34 Diabetes - IDDM; HTN; Pulmonary Embolism; high cholesterol (Pulmonary Embolism); ss - Infectious Disease History:: Denies. - Social history:: Smoking status: Patient denies any tobacco usage or history of. Screenin:15 [facility] ED Fall Risk Assessment (Adult) History of falling in the last 3 months, db including since admission No falls in past 3 months (0 pts) Confusion or Disorientation No (0 pts) Intoxicated or Sedated No (0 pts) Impaired Gait No (0 pts) Mobility Assist Device Used No (0 pt) Altered Elimination No (0 pt) Score/Fall Risk Level 0 - 2 = Low Risk Oriented to surroundings, Maintained a safe environment. Abuse screen: Denies threats or abuse. Denies injuries from another. Nutritional screening: No deficits noted. Tuberculosis screening: No symptoms or risk factors identified. Assessment: 07:55 Reassessment: Patient appears in no apparent distress at this time. Patient and/or db family updated on plan of care and expected duration. Pain level reassessed. Patient is alert, oriented x 3, equal unlabored respirations, skin warm/dry/pink. General: Appears in no apparent distress. uncomfortable, Behavior is calm, cooperative. Pain: Complains of pain in abdomen. Neuro: Level of Consciousness is awake, alert, obeys commands, Oriented to person, place, time, situation. GI: Abdomen is obese, Pt is actively vomiting. 08:28 Reassessment: Patient appears in no apparent distress at this time. No changes from db previously documented assessment. GI: Pt is actively vomiting. 08:35 Reassessment: SEE MAR FOR MEDICATION ADMINISTRATION. General:. Respiratory: Airway is db patent Respiratory effort is even, unlabored, Respiratory pattern is regular, symmetrical. 10:35 Reassessment: PT ROOM CLEANED PT PROVIDED NEW GOWN. URINATED ON SELF WHILE VOMITING. db AMBULATORY WITH STEADY GATE TO RESTROOM. 10:45 Reassessment: ASKED PT IF NEEDS ASSISTANCE IN RESTROOM. STATES IS FINE STILL IN db RESTROOM. 10:58 Reassessment: ASKED PT IF NEEDS ASSISTANCE IN RESTROOM STATES IS FINE REFUSED db ASSISTANCE FROM STAFF. STILL IN RESTROOM. 11:11 Reassessment: PT STILL IN RESTROOM ASKED PT IF NEEDS ASSISTANCE. REFUSED ASSISTANCE db FROM STAFF STATES IS FINE AND WILL COME OUT SOON. 11:37 Reassessment: PT STILL IN RESTROOM STATES IS FINE AND WILL COME OUT. REFUSED STAFF db ASSISTANCE. Vital Signs: 07:32 Pulse 67; Resp 22; Temp 97.7(O); Pulse Ox 100% on R/A; Weight 121.11 kg; Height 5 ft. 2 ss in. ; Pain 0/10; 08:00 BP 152 / 106; Pulse 73; Resp 20; Pulse Ox 100% ; db 11:30 BP 185 / 109; Pulse 90; Resp 18; Pulse Ox 99% ; db 12:30 BP 192 / 120; Pulse 92; Resp 18; Pulse Ox 99% on R/A; db 14:30 BP 168 / 96; Pulse 81; Resp 16; Pulse Ox 97% ; bp 07:32 Body Mass Index 48.83 (121.11 kg, 157.48 cm) ss 07:32 Pain Scale: Adult ss ED Course: 07:14 Patient arrived in ED. gm2 07:15 Ivan Sen MD is Attending Physician. wei 07:24 Antony Pyle, MARIOLA is Primary Nurse. bp 07:34 Triage completed. ss 07:34 Arm band placed on right wrist. ss 07:55 Initial lab(s) drawn, by tn, sent to lab. Inserted saline lock: 22 gauge in left db antecubital area, using aseptic technique. Blood collected. Flushed with 10 mL NS. 08:00 Pulse ox on. NIBP on. db 08:08 XRAY Chest (1 view) In Process Unspecified. EDMS 09:36 CT Abd/Pelvis - IV Contrast Only In Process Unspecified. EDMS 10:08 Mir Welch MD is Hospitalizing Provider. wei 11:40 Patient has correct armband on for positive identification. Bed in low position. Call db light in reach. Side rails up X 1. Warm blanket given. 14:30 No provider procedures requiring assistance completed. Patient admitted, IV remains in bp place. Administered Medications: 07:58 Drug: NS 0.9% IV 1000 ml IV at 1000 ml once; to be given as a bolus over 60 minutes db Route: IV; Rate: 1000 ml; Site: left antecubital; 14:32 Follow up: IV Status: Completed infusion bp 07:58 Drug: Ondansetron IVP 8 mg IVP once; over 2 minutes Route: IVP; Site: left antecubital; db 14:31 Follow up: Response: No adverse reaction bp 07:58 Drug: Famotidine IVP 20 mg IVP once; dilute with 10 mL 0.9% NaCl; give over 2 minutes db Route: IVP; Site: left antecubital; 14:31 Follow up: Response: No adverse reaction bp 08:30 Drug: Promethazine IM 25 mg IM once; in 100 cc ns over 30 min Route: IM; Site: Other; db 14:31 Follow up: Response: No adverse reaction bp 12:14 Drug: metoCLOPramide IVP 10 mg IVP once; over 1 to 2 minutes Route: IVP; Site: right bp antecubital; 14:31 Follow up: Response: No adverse reaction bp Medication: 08:03 VIS not applicable for this client. db Outcome: 10:10 Decision to Hospitalize by Provider. wei 14:30 Admitted to Tele accompanied by tech, via wheelchair, bp 14:30 Condition: stable 14:30 Instructed on the need for admit, 14:32 Patient left the ED. bp Signatures: Dispatcher [employer] EDCT Ivan Sen MD MD cha Blanchard, Shelby, RN RN ss Antony Pyle, MARIOLA RN bp Charo Dave, MARIOLA RN db Danielle Shrestha 2 Corrections: (The following items were deleted from the chart) 08:52 08:28 Reassessment: Patient appears in no apparent distress at this time. No changes db from previously documented assessment. db
--- NOTE | 2025-03-08 10:11 | EDPHYS ---
Physician Documentation [facility] Name: Ning Kirk Age: 59 yrs Sex: Female : 1965 Arrival Date: 03/08/2025 Time: 07:10 Bed 8 Private MD: ED Physician Ivan Sen HPI: 03/08 09:16 This 59 yrs old Black Female presents to ER via Ambulatory with complaints of wei Nausea/Vomiting. 09:16 The patient presents to the emergency department with nausea, vomiting, abdominal pain, ewi of the right upper quadrant, left upper quadrant, right lower quadrant and left lower quadrant. Onset: The symptoms/episode began/occurred 2 day(s) ago. Possible causes: unknown. The symptoms are aggravated by movement, pressure, food , The symptoms are alleviated by remaining still. Associated signs and symptoms: Pertinent positives: abdominal pain, nausea, vomiting. Severity of symptoms: At their worst the symptoms were moderate in the emergency department the symptoms are unchanged. The patient has experienced similar episodes in the past, several times. Historical: - Allergies: 07:34 tramadol; ss - Home Meds: 07:34 losartan oral [Active]; atorvastatin oral [Active]; Trulicity subcutaneous [Active]; ss - PMHx: 07:34 Diabetes - IDDM; HTN; Pulmonary Embolism; high cholesterol (Pulmonary Embolism); ss - Infectious Disease History:: Denies. - Social history:: Smoking status: Patient denies any tobacco usage or history of. ROS: 09:17 Constitutional: Negative for fever, chills, and weight loss, Eyes: Negative for injury, wei pain, redness, and discharge, ENT: Negative for injury, pain, and discharge, Neck: Negative for injury, pain, and swelling, Cardiovascular: Negative for chest pain, palpitations, and edema, Respiratory: Negative for shortness of breath, cough, wheezing, and pleuritic chest pain, Back: Negative for injury and pain, : Negative for injury, bleeding, discharge, and swelling, MS/Extremity: Negative for injury and deformity, Skin: Negative for injury, rash, and discoloration, Psych: Negative for depression, anxiety, suicide ideation, homicidal ideation, and hallucinations, Allergy/Immunology: Negative for hives, rash, and allergies, Endocrine: Negative for neck swelling, polydipsia, polyuria, polyphagia, and marked weight changes, 09:17 Abdomen/GI: Positive for abdominal pain, nausea and vomiting, abdominal cramps, abdominal distension, of the right upper quadrant, left upper quadrant, right lower quadrant and left lower quadrant, 09:17 MS/extremity: Negative for acute changes, Exam: :17 Constitutional: This is a well developed, well nourished patient who is awake, alert, wei and in no acute distress. Head/Face: Normocephalic, atraumatic. Eyes: Pupils equal round and reactive to light, extra-ocular motions intact. Lids and lashes normal. Conjunctiva and sclera are non-icteric and not injected. Cornea within normal limits. Periorbital areas with no swelling, redness, or edema. ENT: Nares patent. No nasal discharge, no septal abnormalities noted. Tympanic membranes are normal and external auditory canals are clear. Oropharynx with no redness, swelling, or masses, exudates, or evidence of obstruction, uvula midline. Mucous membranes moist. Neck: Trachea midline, no thyromegaly or masses palpated, and no cervical lymphadenopathy. Supple, full range of motion without nuchal rigidity, or vertebral point tenderness. No Meningismus. Chest/axilla: Normal chest wall appearance and motion. Nontender with no deformity. No lesions are appreciated. Cardiovascular: Regular rate and rhythm with a normal S1 and S2. No gallops, murmurs, or rubs. Normal PMI, no JVD. No pulse deficits. Respiratory: Lungs have equal breath sounds bilaterally, clear to auscultation and percussion. No rales, rhonchi or wheezes noted. No increased work of breathing, no retractions or nasal flaring. Back: No spinal tenderness. No costovertebral tenderness. Full range of motion. Female : Normal external genitalia. Skin: Warm, dry with normal turgor. Normal color with no rashes, no lesions, and no evidence of cellulitis. MS/ Extremity: Pulses equal, no cyanosis. Neurovascular intact. Full, normal range of motion., bilateral aka Neuro: Awake and alert, GCS 15, oriented to person, place, time, and situation. Cranial nerves II-XII grossly intact. Motor strength 5/5 in all extremities. Sensory grossly intact. Cerebellar exam normal. Normal gait. Psych: Awake, alert, with orientation to person, place and time. Behavior, mood, and affect are within normal limits. 09:17 ECG was reviewed by the Attending Physician. 09:17 Abdomen/GI: Inspection: distension, that is mild, Bowel sounds: normal, Palpation: mild abdominal tenderness, in all quadrants, Liver: no appreciated palpable abnormalities, Hernia: not appreciated, Vital Signs: 07:32 Pulse 67; Resp 22; Temp 97.7(O); Pulse Ox 100% on R/A; Weight 121.11 kg; Height 5 ft. 2 ss in. ; Pain 0/10; 08:00 BP 152 / 106; Pulse 73; Resp 20; Pulse Ox 100% ; db 11:30 BP 185 / 109; Pulse 90; Resp 18; Pulse Ox 99% ; db 12:30 BP 192 / 120; Pulse 92; Resp 18; Pulse Ox 99% on R/A; db 14:30 BP 168 / 96; Pulse 81; Resp 16; Pulse Ox 97% ; bp 07:32 Body Mass Index 48.83 (121.11 kg, 157.48 cm) ss 07:32 Pain Scale: Adult ss MDM: 07:15 Medical Screening Exam initiated wei 09:18 Differential diagnosis: Nonspecific abd pain, gastritis, cholecystitis, pancreatitis, wei appendicitis, diverticulitis, viral gastroenteritis, gastroenteritis, acute coronary syndrome, appendicitis, bowel obstruction, coronary artery disease, cholecystitis, Cholelithiasis, diverticulitis, gastritis, gastroesophageal reflux disease, GI Bleed, Hepatitis, Herpes Zoster, Irritable bowel syndrome, sympomatic leaking abdominal aortic aneurysm, Mesenteric ischemia or infarction, myocardia ischemia or infarction, non-specific abd pain, pancreatitis, Peptic Ulcer Disease, Perf. Duodenal Ulcer. Data reviewed: vital signs, nurses notes, lab test result(s), EKG, radiologic studies, CT scan, plain films. Consideration of Admission/Observation Patient was admitted/placed on observation. Escalation of care including admission/observation considered. I considered the following discharge prescriptions or medication management in the emergency department Medications were administered in the Emergency Department. See MAR. Independent interpretation of the following test(s) in the Emergency Department EKG: See my EKG interpretation above. Test considered but Not performed: Ultrasound NO ABD USG. Care significantly affected by the following chronic conditions: Diabetes, Hypertension, Obesity, PE, HIGH CHLESTEROL. 03/08 07:16 Order name: Basic Metabolic Panel; Complete Time: 09:11 wei 08/21 07:16 Order name: CBC with Diff; Complete Time: 08:34 [facility] 03/08 07:16 Order name: LFT's; Complete Time: 09:11 [facility] 03/08 07:16 Order name: Magnesium; Complete Time: 09:11 [facility] 03/08 07:16 Order name: NT PRO-BNP; Complete Time: 09:11 [facility] 03/08 07:16 Order name: PT-INR; Complete Time: 08:34 [facility] 03/08 07:16 Order name: Troponin HS; Complete Time: 09:11 [facility] 03/08 07:16 Order name: UA Rfx Faisal Cult if indicated [facility] 03/08 07:16 Order name: Lipase; Complete Time: 09:11 [facility] 03/08 09:12 Order name: Lactate w/ 2H reflex if indic. [facility] 03/08 13:06 Order name: Basic Metabolic Panel EDMS 03/08 13:06 Order name: Basic Metabolic Panel EDMS 03/08 13:06 Order name: Basic Metabolic Panel EDMS 03/08 13:06 Order name: Basic Metabolic Panel EDMS 03/08 13:06 Order name: Basic Metabolic Panel EDMS 03/08 13:06 Order name: Basic Metabolic Panel EDMS 03/08 13:06 Order name: Basic Metabolic Panel EDMS 03/08 13:06 Order name: Basic Metabolic Panel EDMS 03/08 13:06 Order name: Lipid Profile EDMS 03/08 13:06 Order name: Lipid Profile EDMS 03/08 13:06 Order name: Magnesium EDMS 03/08 13:06 Order name: Magnesium EDMS 03/08 13:06 Order name: Magnesium EDMS 03/08 13:06 Order name: Magnesium EDMS 03/08 13:06 Order name: Magnesium EDMS 03/08 13:06 Order name: Magnesium EDMS 03/08 13:06 Order name: Magnesium EDMS 03/08 13:06 Order name: Magnesium EDMS 03/08 13:06 Order name: Phosphorus EDMS 03/08 13:06 Order name: Phosphorus EDMS 03/08 13:06 Order name: Phosphorus EDMS 03/08 13:06 Order name: Phosphorus EDMS 03/08 13:06 Order name: Phosphorus EDMS 03/08 13:06 Order name: CBC with Automated Diff EDMS 03/08 13:06 Order name: CBC with Automated Diff EDMS 03/08 13:06 Order name: CBC with Automated Diff EDMS 03/08 13:06 Order name: CBC with Automated Diff EDMS 03/08 13:06 Order name: CBC with Automated Diff EDMS 03/08 13:07 Order name: CBC with Automated Diff EDMS 03/08 13:07 Order name: CBC with Automated Diff EDMS 03/08 13:07 Order name: CBC with Automated Diff EDMS 03/08 13:07 Order name: Phosphorus EDMS 03/08 13:07 Order name: Phosphorus EDMS 03/08 13:07 Order name: Phosphorus EDMS 03/08 13:07 Order name: T4 Free EDMS 03/08 13:07 Order name: T4 Free EDMS 03/08 13:07 Order name: Thyroid Stimulating Hormone EDMS 03/08 13:07 Order name: Thyroid Stimulating Hormone EDMS 03/08 13:07 Order name: Troponin High Sensitivity EDMS 03/08 13:07 Order name: Troponin High Sensitivity EDMS 03/08 13:07 Order name: Troponin High Sensitivity EDMS 03/08 13:10 Order name: Urine Drug Screen EDMS 03/08 07:16 Order name: XRAY Chest (1 view); Complete Time: 08:34 wei 03/08 07:16 Order name: CT Abd/Pelvis - IV Contrast Only; Complete Time: 10:26 wei 03/08 07:16 Order name: Cardiac monitoring; Complete Time: 08:51 wei 03/08 07:16 Order name: EKG - Nurse/Tech; Complete Time: 08:51 [facility] 03/08 07:16 Order name: IV Saline Lock; Complete Time: 08:05 wei 03/08 07:16 Order name: Labs collected and sent; Complete Time: 08:05 wei 03/08 07:16 Order name: O2 Per Protocol; Complete Time: 08:05 wei 03/08 07:16 Order name: O2 Sat Monitoring; Complete Time: 08:05 [facility] EC:17 Rate is 79 beats/min. Rhythm is regular. QRS [place] is Normal. WI interval is normal. QRS wei interval is normal. QT interval is normal. No Q waves. T waves are Normal. No ST changes noted. Clinical impression: NSR w/ Non-specific ST/T Changes and No evidence of ischemia. Interpreted by me. Reviewed by me. Administered Medications: 07:58 Drug: NS 0.9% IV 1000 ml IV at 1000 ml once; to be given as a bolus over 60 minutes db Route: IV; Rate: 1000 ml; Site: left antecubital; 14:32 Follow up: IV Status: Completed infusion bp 07:58 Drug: Ondansetron IVP 8 mg IVP once; over 2 minutes Route: IVP; Site: left antecubital; db 14:31 Follow up: Response: No adverse reaction bp 07:58 Drug: Famotidine IVP 20 mg IVP once; dilute with 10 mL 0.9% NaCl; give over 2 minutes db Route: IVP; Site: left antecubital; 14:31 Follow up: Response: No adverse reaction bp 08:30 Drug: Promethazine IM 25 mg IM once; in 100 cc ns over 30 min Route: IM; Site: Other; db 14:31 Follow up: Response: No adverse reaction bp 12:14 Drug: metoCLOPramide IVP 10 mg IVP once; over 1 to 2 minutes Route: IVP; Site: right bp antecubital; 14:31 Follow up: Response: No adverse reaction bp Disposition Summary: 03/08/25 10:10 Hospitalization Ordered Notes: Hospitalization Status: Inpatient Admission wei Provider: Mir Welch cha Location: Telemetry/MedSurg (Inpatient) wei Condition: Fair wei Problem: an acute exacerbation ewi Symptoms: are unchanged wei Bed/Room Type: Standard wei Room Assignment: [id number](03/08/25 13:23) Diagnosis - Vomiting wei - Adverse effect of unspecified drugs, medicaments and biological substances wei - Type 1 diabetes mellitus with hyperglycemia wei - Essential (primary) hypertension wei - Obesity, unspecified wei - Other cholelithiasis without obstruction wei Forms: - Medication Reconciliation Form wei - SBAR form wei - Leadership Thank You Letter wei Signatures: Dispatcher [employer] Ivan Flores MD MD cha Blanchard, Shelby, RN RN ss Antony Pyle RN RN bp Benton, Danielle, RN RN db Corrections: (The following items were deleted from the chart) 07:17 07:17 BASIC METABOLIC PANEL+C.LAB.BRZ ordered. EDMS EDMS 07:17 07:17 CBC+H.LAB.BRZ ordered. EDMS EDMS 07:17 07:17 HEPATIC FUNCTION+C.LAB.BRZ ordered. EDMS EDMS 07:17 07:17 MAGNESIUM+C.LAB.BRZ ordered. EDMS EDMS 07:17 07:17 PROBNP+C.LAB.BRZ ordered. EDMS EDMS 07:17 07:17 PROTIME (+INR)+COAG.LAB.BRZ ordered. EDMS EDMS 07:17 07:17 Troponin High Sensitivity+C.LAB.BRZ ordered. EDMS EDMS 07:17 07:17 UA Rfx Faisal Cult if indicated+U.LAB.BRZ ordered. EDMS EDMS 07:17 07:17 LIPASE+C.LAB.BRZ ordered. EDMS EDMS 07:17 07:17 Chest Single View+RAD.RAD.BRZ ordered. EDMS EDMS 07:17 07:17 Abdomen Pelvis W Con+CT.RAD.BRZ ordered. EDMS EDMS 13:23 10:10 wei ss
[2025-03-08] MEDS ORDERED: NA CHLORIDE 0.9% 50 ML ONE (10:45)
[2025-03-08] MEDS ORDERED: METOCLOPRAMIDE 10 MG/2mL INJ ONE (10:45)
[2025-03-08] MEDS: NA CHLORIDE 0.9% 1,000 ML IV SCH (13:00)
[2025-03-08] MEDS: HYDRALAZINE HCL 20 MG/ML VIAL IV PRN (13:30)
[2025-03-08 13:47] LABS: Sqamous Epithelial <5 /HPF (None Seen); Urine Culture Reflex Order NOT NEEDED; Urine Microscopic Reflex YN ORDER UMIC; Urine Yeast (Budding) Trace /HPF (None Seen)
[2025-03-08 14:55] LABS: METHAMPHETAM NEGATIVE (NEGATIVE); THC Cannibis NEGATIVE (NEGATIVE)
[2025-03-08] MEDS: SUCRALFATE 1GM/10ML UCUP PO SCH (16:02)
[2025-03-08] MEDS: METRONIDAZOLE 500mg IVPB 500 MG/100 ML BAG IV SCH (16:03)
[2025-03-08] MEDS: ONDANSETRON 4 MG/2 ML VIAL IV PRN (16:04)
[2025-03-08] MEDS: HEPARIN 5000 UNIT/ML 1 ML VIAL SQ SCH (16:08)
--- NOTE | 2025-03-08 19:06 | P.HP ---
Certification for Inpatient Patient admitted to: Observation With expected LOS: <2 Midnights Practitioner: I am a practitioner with admitting privileges, knowledge of patient current condition, hospital course, and medical plan of care. Services: Services provided to patient in accordance with Admission requirements found in Title 42 Section 412.3 of the Code of Federal Regulations Patient History Date of Service: 03/08/25 Reason for admission: intractable N/V History of Present Illness: Ning Kirk is a 59 year old female with pmhx diabetes mellitusIDDM, hypertension, pulmonary embolus, hypercholesterolemia who presents to the ED with intractable nausea and vomiting since yesterday in the morning. She reports that Trulicity causing this nausea and vomiting and has occurred in the past. Laboratory evaluation significant for left shift neutrophils 74.1, BUN/creatinine 12/1.22, GFR 50, serum glucose 187, alk phos 185, BNP 202. Chest x-ray report "The lungs appear clear of acute infiltrate. No significant pleural effusion noted. The heart is mildly enlarged.. IMPRESSION: No acute abnormality is displayed." CT abdomen pelvis with contrast report "Stable 5.2 cm cystic mass left adnexa without significant free fluid. Cholelithiasis without evidence cholecystitis" Ning will be admitted to hospitalist service for further evaluation and treatment of intractable nausea vomiting. Allergies tramadol Allergy (Unknown, Verified 04/30/20 15:51) Itching/Hives/Rash Home Medications: Alcohol Antiseptic Pads [Caretouch Alcohol Prep Pad] 1 each TP TID #100 med..pad 05/12/20 Atorvastatin Calcium [Lipitor] 40 mg PO BEDTIME #30 tab 05/12/20 Blood Sugar Diagnostic [Caretouch Test Strip] 1 each MC TID #100 strip 05/12/20 Blood-Glucose Meter [CarePurewineuch Glucose Monitoring] 1 each MC TID #1 kit 05/12/20 Cholecalciferol (Vitamin D3) [Vitamin D 1000 Iu Tab*] 2,000 unit PO DAILY #30 tab 05/12/20 Insulin 70/30 NPH/Reg Human [Novolin 70/30*] 25 unit SQ BIDAC #100 ml 05/12/20 Lancing Device [impok Ult Lancing Device] 1 each MC TID #100 each 05/12/20 Senosides [Senokot*] 17.2 mg PO BID #60 tab 05/12/20 Syringe-Needle,Insulin,0.5 ml [Caretouch Insulin Syringe] 1 each MC TID #100 disp.syrin 05/12/20 Thiamine HCl [Vitamin B-1*] 200 mg PO DAILY #60 tablet 05/12/20 Metoclopramide HCl [Reglan] 5 mg PO Q8HR PRN 14 Days #40 tablet 05/31/20 Warfarin Sodium 2.5 mg PO SEECOM 30 Days #60 tablet 05/31/20 predniSONE [Deltasone*] 10 mg PO DAILY 14 Days #14 tab 05/31/20 Ondansetron [Zofran] 4 mg PO Q8H PRN #20 tab 03/19/22 - Past Medical/Surgical History Diabetic: Yes -: CovID 19 pneumonia -: DM2, insulin dependent -: Pulmonary embolus -: HTN -: high cholesterol -: tubal Psychosocial/ Personal History: Patient lives at home with her family - Social History Smoking Status: Never smoker Alcohol use: No CD- Drugs: No Caffeine use: No Place of Residence: Home Review of Systems Other: Per HPI Physical Examination - Vital Signs Temperature: 98.7 F Blood Pressure: 146/70 Pulse: 92 Respirations: 21 Pulse Ox (%): 94 - Physical Exam General: Alert, Oriented x3, Other (uncomfortable) HEENT: Atraumatic, Normocephalic Neck: Supple, 2+ carotid pulse no bruit Respiratory: Clear to auscultation bilaterally, Normal air movement Cardiovascular: Normal pulses, Regular rate/rhythm Gastrointestinal: Normal bowel sounds, Hypoactive Musculoskeletal: No clubbing Integumentary: No rashes Neurological: Normal speech, Normal tone - Studies Laboratory Data (last 24 hrs) 03/08/25 03/08/25 03/08/25 07:55 07:55 07:55 WBC 8.50 Hgb 12.1 Hct 36.4 Plt Count 229 PT 14.1 H INR 1.26 Sodium 138 Potassium 3.9 BUN 12 Creatinine 1.22 H Glucose 187 H Magnesium 1.9 Total Bilirubin 0.6 AST 19 ALT 42 Alkaline Phosphatase 185 H Lipase 47 Assessment and Plan - Plan Assessment and plan Intractable nausea vomiting Diabetes mellitusIDDM - On Trulicity at home - Gentle IV fluid - Accu-Chek with sliding scale insulin - A1c in the a.m. - Clear with diet, will monitor tolerance - Cipro Flagyl - Protonix - Carafate - Zofran Hypertension Pulmonary embolus Hypercholesterolemia - Continue home medications as appropriate DVT PPx Lovenox Full code LOS 24-hour OBS Discharge Plan: Home Plan to discharge in: 24 Hours - Advance Directives Does patient have a Living Will: No Does patient have a Durable POA for Healthcare: No Time Spent Managing Pts Care (In Minutes): 65
[2025-03-08] MEDS: CIPROFLOXACIN HCL 500 MG TAB PO SCH (21:06)
[2025-03-08] MEDS: PANTOPRAZOLE 40 MG INJ IVP SCH (21:06)
[2025-03-09] MEDS: ACETAMINOPHEN 325 MG TABLET PO PRN (01:11)
[2025-03-09 04:48] LABS: Nucleated RBC Absolute Count 0.0 (0-0); Nucleated Red Blood Cells % 0.0 % (0-0)
[2025-03-09 04:58] LABS: Absolute Lymphocytes (CBC) 1.8 K/uL (0.7-4.9); Hematocrit 34.2 % (36.0-45.0); Hemoglobin 11.4 g/dL (12.0-15.0); MCH 28.3 pg (27.0-35.0); MCHC 33.2 g/dL (32.0-36.0); MCV 85.3 fL (80-100); MPV 9.5 fL (7.6-11.3); RBC Red Blood Cell Count 4.01 M/uL (3.86-4.86); White Blood Count 12.90 thou/uL (4.3-10.9)
[2025-03-09] MEDS: METOCLOPRAMIDE 10 MG/2mL INJ IV PRN (05:05)
[2025-03-09 05:14] LABS: Anion Gap 6.9 mEq/L (5.0-15.0); BUN Blood Urea Nitrogen 16.0 mg/dL (7-18); Glucose Level 196.0 mg/dL (74-106); HDL Cholesterol 66.0 mg/dL (40-60); LDL Cholesterol, Calculated 214.0 mg/dL (<130); LDL Cholesterol,Calc NonReport 214.0; Magnesium 1.7 mg/dL (1.6-2.4); Potassium 3.9 mEq/L (3.5-5.1); Thyroid Stimulating Hormone 0.3 uIU/mL (0.358-3.740); Troponin High Sensitivity 42.8 pg/mL (<58.9)
[2025-03-09] MEDS: ENOXAPARIN 40 MG/0.4 ML SQ SCH (08:09)
--- NOTE | 2025-03-09 11:01 | CON ---
Date of Consultation: 03/09/2025 Reason For Consultation: Intractable nausea and vomiting. History Of Present Illness: The patient is a 59-year-old female who was admitted yesterday with naus ea and vomiting that started on Wednesday. She takes Trulicity and she took her last dose on Wednesday. She has had some nausea and vomiting following Trulicity in the past. She denies any abdominal pain. She denies any diarrhea or constipation. No blood in her stool. No dysuria or hematuria. No sore throat, runny nose, cough, headaches, or dizziness. No chest pain. No fevers or chills. Review of Systems: Otherwise, unremarkable. Past Medical History: Significant for diabetes and hypertension, pulmonary embolus, and high cholest jennifer. Past Surgical History: Bilateral tubal ligation. Please also note the patient had COVID-19 pneumoni a. Allergies: INCLUDES TRAMADOL. Social History: Patient does not smoke or drink alcohol. Family History: Noncontributory. Physical Examination: Vital Signs: Stable. She is afebrile. General: She is awake, alert, oriented x3. Head and Neck: No masses. No JVD. Throat clear. Neck is supple. Chest: Clear. Heart: S1, S2. Abdomen: Soft, nondistended, nontender. Positive bowel sounds. Extremities: Neurovascularly intact. Neuro: Nonfocal. Laboratory Data: White count is 12.9, with a left shift. INR is 1.26. Chemistry reviewed. Her LFT s were essentially within normal limits except for alkaline phosphatase being slightly elevated at 18 5. The patient had a CT of the abdomen and pelvis, which showed cholelithiasis without evidence of c holecystitis and has stable 5.2 cm cystic mass in the left adnexa which had been present for over 5 y ears. Assessment: Intractable nausea and vomiting and cholelithiasis. The possibility of chronic cholecys titis does exist as well as biliary dyskinesia. Recommendations: We will go ahead and get a HIDA scan and see what that shows. More than likely, I believe, she will have some evidence of biliary dyskinesia or chronic cholecystitis. Should that be the case, we will proceed with laparoscopic cholecystectomy, possible open. The risks, benefits, and alternatives were explained to the patient, but again we will await the HIDA scan prior to making th at recommendation. /MODL Voice ID: [id number] Report ID: [id number]
--- NOTE | 2025-03-09 11:10 | RAD REPORT ---
EXAM: XR Abdomen 1 View (KUB) HISTORY: [facility] intractable nausea/vomiting COMPARISON: None FINDINGS: Single view of the abdomen shows a nonspecific, nonobstructive bowel gas pattern, with over all paucity of bowel gas. No suspicious calcifications are seen. The bones are unremarkable. IMPRESSION: Nonobstructive bowel gas pattern, with overall paucity of bowel gas, limiting evaluation.
[2025-03-09 13:39] VITALS: BMI 48.8
--- NOTE | 2025-03-09 13:47 | RAD REPORT ---
EXAMINATION: Hepatobiliary System W/ Ph CLINICAL INDICATION: Female, 59 years old. [facility] intractable Nausea/vomiting TECHNIQUE: Hepatobiliary imaging was acquired over the abdomen for 60 minutes following intravenous a dministration of radiotracer. Slow intravenous administration of CCK. CCK dose: 2.4ug. Additional imaging was acquired over the abdomen for 30 minutes. Gallbladder ejection fraction was then calculat ed. RADIOPHARMACEUTICAL: 6.2 mCi Technetium 99m Mebrofenin. COMPARISON: No prior exams. FINDINGS: There is prompt accumulation of the radiopharmaceutical in the liver and excretion into the biliary d uctal system, gallbladder, and small bowel. Delayed emptying of the gallbladder. Gallbladder ejection fraction was calculated at 9% (normal range >35%). Patient was nauseous prior to Kinevac infusion, worsened during infusion. IMPRESSION: No evidence of cystic duct obstruction. Suboptimal gallbladder emptying, may suggest additional bilia ry dyskinesia. Low ejection fraction, 9%.
--- NOTE | 2025-03-09 16:21 | P.PN ---
Date of Service: 03/09/25 Subjective Continues having nausea and vomiting Dr. Nash consulted and HIDA scan ordered showing EF 9% Plan for surgery in the a.m. ROS 10 point ROS as noted above, otherwise negative Physical Exam General: Alert, Oriented x3, Other (uncomfortable) HEENT: Atraumatic, Normocephalic Neck: Supple Respiratory: Clear to auscultation bilaterally, Normal air movement Cardiovascular: Normal pulses, RRR Gastrointestinal: Normal bowel sounds, Hypoactive Musculoskeletal: No clubbing Integumentary: No rashes Neurological: Normal speech, Normal tone Vitals Reviewed Problem list Intractable nausea vomiting secondary to acute cholecystitis Diabetes mellitusIDDM Hypertension Pulmonary embolus Hypercholesterolemia Assessment and Plan Intractable nausea vomiting secondary to acute cholecystitis Diabetes mellitusIDDM - On Trulicity at home -Dr. Nash consulted, plan for surgery in the a.m. -HIDA scan showing EF 9% - Continue gentle IV fluid - Accu-Chek with sliding scale insulin - A1c 8.0 - Clear liquid diet, n.p.o. at midnight - Continue Cipro /Flagyl - Protonix - Carafate - Zofran Hypertension Pulmonary embolus Hypercholesterolemia - Continue home medications as appropriate DVT PPx Lovenox Full code Discharge Plan: Home Plan to discharge in: 2 days Time Spent Managing Pts Care (In Minutes): 35 <Senait Brown - Last Filed: 03/09/25 16:12> I have personally seen and evaluated the patient. I have reviewed the history, physical exam findings, and assessment provided by Kevin Sapp NP. I agree with the plan of care as documented <Aleksandar Mg - Last Filed: 03/09/25 17:16>
[2025-03-09] MEDS: ATORVASTATIN 40 MG TAB PO SCH (21:31)
[2025-03-10 07:22] LABS: Absolute Lymphocytes (CBC) 1.8 K/uL (0.7-4.9); Hematocrit 38.4 % (36.0-45.0); Hemoglobin 12.7 g/dL (12.0-15.0); MCH 28.5 pg (27.0-35.0); MCHC 33.2 g/dL (32.0-36.0); MCV 86.0 fL (80-100); MPV 9.7 fL (7.6-11.3); Nucleated RBC Absolute Count 0.0 (0-0); Nucleated Red Blood Cells % 0.0 % (0-0); RBC Red Blood Cell Count 4.46 M/uL (3.86-4.86); White Blood Count 10.10 thou/uL (4.3-10.9)
[2025-03-10] MEDS: LOSARTAN POTASSIUM 50 MG TABLET PO SCH ×2 (07:23→17:27)
[2025-03-10] MEDS: BUPIVACAINE 0.5% PF 10 ML VIAL ONE (07:29)
[2025-03-10] MEDS: NA CHLORIDE 0.9% 1,000 ML ONE ×2 (07:35→10:09)
[2025-03-10 07:40] LABS: ALT/SGPT 25 U/L (13-56); AST/SGOT 24 U/L (15-37); Albumin 3.1 g/dL (3.4-5.0); Albumin/Globulin Ratio 0.7 (1.1-1.8); Alkaline Phosphatase 145 U/L (45-117); Globulin 4.2 g/dL (2.3-3.5)
[2025-03-10 07:45] LABS: Anion Gap 11.4 mEq/L (5.0-15.0); BUN Blood Urea Nitrogen 14.0 mg/dL (7-18); Glucose Level 208.0 mg/dL (74-106); Magnesium 1.8 mg/dL (1.6-2.4); Potassium 3.4 mEq/L (3.5-5.1)
[2025-03-10 07:46] LABS: Bilirubin Indirect, Calculated 0.3 mg/dL (0.2-0.8)
[2025-03-10] MEDS ORDERED: ROCURONIUM 50 MG/5 ML VIAL IV ONE (07:56)
[2025-03-10] MEDS ORDERED: FENTANYL CITR 100 MCG/2 ML ONE ×2 (07:56→08:30)
[2025-03-10] MEDS ORDERED: MIDAZOLAM HCL 2 MG/2 ML INJ ONE (07:56)
[2025-03-10] MEDS ORDERED: SUCCINYLCHOLINE 200 MG/10 ML 200 MG/10 ML SYR IV ONE (07:57)
[2025-03-10] MEDS ORDERED: LIDOCAINE 1% MPF 5 ML VIAL ONE (08:32)
[2025-03-10] MEDS: CIPROFLOXACIN 400mg IV 400 MG/200 ML BAG IV ONE (08:47)
[2025-03-10] MEDS ORDERED: KETOROLAC 30 MG/ML INJ ONE (08:54)
[2025-03-10] MEDS ORDERED: NEOSTIGMINE 1 MG/ML -10 ML VIAL ONE (08:54)
[2025-03-10] MEDS ORDERED: GLYCOPYRROLATE 0.2 MG/ML SYR ONE (08:54)
[2025-03-10] MEDS ORDERED: ONDANSETRON 4 MG/2 ML VIAL ONE (08:55)
--- NOTE | 2025-03-10 10:11 | P.OP ---
Date of Service: 03/10/25 Preop diagnosis: Chronic cholecystitis and cholelithiasis with biliary dyskinesia, persistent nausea and vomiting Postop diagnosis: Same with extensive adhesions Procedure performed: Laparoscopic cholecystectomy and extensive lysis of adhesions Surgeon: Apollo Nash MD Tenderizer Tender: Chika LAZAR Estimated blood loss: Minimal Specimen: Gallbladder Findings: As above Anesthesia: General Complications: None Drains: None Fluids and blood products: Nonapplicable Disposition: Recovery room Operative note: Patient brought to the OR and placed in the supine position. General anesthesia began. Patient prepped and draped in the usual sterile fashion. Marcaine 0.5% infiltrated locally. 15 blade used to make approximate ly a 2 cm supraumbilical midline incision. Subcutaneous tissue divided and bleeding controlled cautery. Fascia identified and divided. #1 Vicryl stay suture placed. Peritoneal cavity entered with sharp and blunt dissection. 12 mm trocar placed into the peritoneal cavity under direct vision. Pneumoperitoneum established. Then three 5 mm trocars placed under direct vision. 1 trocar placed in the epigastric region just to the right of midline. 2 trocars placed in the right subcostal region. Laparoscopy revealed extensive adhesions. LigaSure utilized for approximately 20 minutes to take down all the omental adhesions that were present on the gallbladder as well as the midline. After removal of the adhesions, the gallbladder was greatly distended and it was aspirated. Then the fundus identified and retracted superiorly. Infundibulum identified and retracted inferolaterally. Cystic duct and cystic artery clearly identified with blunt dissection. Clips placed in both structures divided. Gallbladder removed from the liver bed with utilizing cautery. Bleeding in the liver bed controlled with cautery. Gallbladder was removed through the umbilicus via Endo Catch bag. The fascial incision had to be extended in order to allow for this large gallbladder with bunch of stones in the to be removed safely. Then pneumoperitoneum reestablished. Right upper quadrant irrigated. Effluent clear. There is no evidence of bleeding or bile leakage appreciated. All trocars removed under direct vision. #1 Vicryl used to close the large fascial defect. Subcutaneous wound irrigated and bleeding controlled cautery. 3-0 chromic used to approximate subcutaneous tissue and close skin. Sterile dressing applied. Patient awakened and taken to recovery room in good general condition. CC:
[2025-03-10] MEDS: MAGNESIUM SULFATE 1 gm IVPB 1 GM/100 ML BAG IV ONE (12:04)
[2025-03-10] MEDS: POTASS/SODIUM PHOSPHATE 1 PKT POWD.PACK PO SCH (12:04)
[2025-03-10] MEDS: POTASSIUM CL SA 10 MEQ TAB PO ONE (12:05)
--- NOTE | 2025-03-10 16:10 | P.PN ---
Date of Service: 03/10/25 Subjective In surgery this morning feeling better postop will monitor OVN, likely discharge in the AM ROS 10 point ROS as noted above, otherwise negative Physical Exam General: Alert, Oriented x3, HEENT: Atraumatic, Normocephalic Respiratory: Clear BBS, Normal air movement Cardiovascular: Normal pulses, Regular rate and rhythm Gastrointestinal: Normal bowel sounds, Hypoactive Musculoskeletal: No clubbing Integumentary: No rashes Neurological: Normal speech, Normal tone Vitals Reviewed Problem list Intractable nausea vomiting secondary to acute cholecystitis s/p laparoscopic cholecystectomy and extensive lysis of adhesion Diabetes mellitusIDDM Hypertension Pulmonary embolus Hypercholesterolemia Assessment and Plan Intractable nausea vomiting secondary to acute cholecystitis s/p laparoscopic cholecystectomy and extensive lysis of adhesion -Dr. Nash consulted/following -S/p lap cholecystectomy -HIDA scan showing EF 9% - Continue gentle IV fluid - Clear liquid diet, n.p.o. at midnight - Continue Cipro/Flagyl - Protonix - Carafate - Zofran -Montior LFT in the AM Diabetes mellitusIDDM -reports trulicity -Accu-Chek with sliding scale insulin -A1c 8.0 Hypertension Pulmonary embolus Hypercholesterolemia - Continue home medications as appropriate DVT PPx Lovenox Full code Discharge Plan: Home Plan to discharge in: 2 days Time Spent Managing Pts Care (In Minutes): 38 <Senait Brown - Last Filed: 03/10/25 16:04> I have personally seen and evaluated the patient. I have reviewed the history, physical exam findings, and assessment provided by Senait Brown MARK UP DESIGNER. I agree with the plan of care as documented <Aleksandar Mg - Last Filed: 03/10/25 16:11>
[2025-03-11] MEDS: PIPER TAZO 3.375 GM in NA CHLORIDE 0.9% 100 ML IV SCH (00:28)
[2025-03-11] MEDS: HYDROMORPHONE HCL 1 MG/ML INJ IV PRN (02:06)
[2025-03-11 05:45] LABS: Absolute Lymphocytes (CBC) 1.7 K/uL (0.7-4.9); Hematocrit 37.0 % (36.0-45.0); Hemoglobin 12.0 g/dL (12.0-15.0); MCH 27.7 pg (27.0-35.0); MCHC 32.4 g/dL (32.0-36.0); MCV 85.5 fL (80-100); MPV 9.1 fL (7.6-11.3); Nucleated RBC Absolute Count 0.0 (0-0); Nucleated Red Blood Cells % 0.0 % (0-0); RBC Red Blood Cell Count 4.33 M/uL (3.86-4.86); White Blood Count 13.60 thou/uL (4.3-10.9)
[2025-03-11 06:04] LABS: ALT/SGPT 71.0 U/L (13-56); AST/SGOT 89.0 U/L (15-37); Albumin 2.9 g/dL (3.4-5.0); Albumin/Globulin Ratio 0.7 (1.1-1.8); Alkaline Phosphatase 143.0 U/L (45-117); Anion Gap 9.8 mEq/L (5.0-15.0); BUN Blood Urea Nitrogen 16.0 mg/dL (7-18); Globulin 4.1 g/dL (2.3-3.5); Glucose Level 183.0 mg/dL (74-106); Magnesium 1.9 mg/dL (1.6-2.4); Potassium 3.8 mEq/L (3.5-5.1)
--- NOTE | 2025-03-11 11:38 | PN ---
Date of Progress Note: 03/11/2025 Subjective: The patient is awake, alert. Still having occasional nausea. No vomiting. Her pain is well controlled. Objective: Vital Signs: Stable. She is afebrile. Abdomen: Benign. Laboratory Data: Reviewed. Her white count is slightly up to 13.6. Chemistry reviewed. AST and AL T are slightly up, not unexpected after gallbladder surgery. Assessment: Status post laparoscopic cholecystectomy and lysis of adhesions. Recommendations: Continue hydration, parenteral pain management, encourage ambulation, incentive spi rometry, IV antibiotics. If the patient is able to tolerate diet without vomiting and is ambulating, pain control on p.o. pain medication, afebrile, then patient can be discharged home either later tod ay or tomorrow. We will follow this patient while in the hospital. Plan of care discussed with the Hospitalist team. ZOEY/TAMANNA Voice ID: [id number] Report ID: [id number]
--- NOTE | 2025-03-11 11:46 | P.PN ---
Date of Service: 03/11/25 Subjective Still with nausea and vomiting this morning Some pain but improved ROS 10 point ROS as noted above, otherwise negative Physical Exam General: Alert, Oriented x3, HEENT: Atraumatic, Normocephalic Respiratory: Clear BBS, Normal air movement Cardiovascular: Normal pulses, Regular rate and rhythm Gastrointestinal: Normal bowel sounds, Hypoactive Musculoskeletal: No clubbing Integumentary: No rashes Neurological: Normal speech, Normal tone Vitals Reviewed Problem list Intractable nausea vomiting secondary to acute cholecystitis s/p laparoscopic cholecystectomy and extensive lysis of adhesion Diabetes mellitusIDDM Hypertension Pulmonary embolus Hypercholesterolemia Plan Intractable nausea vomiting secondary to acute cholecystitis s/p laparoscopic cholecystectomy and extensive lysis of adhesion -Dr. Nash consulted/following -S/p lap cholecystectomy - Continue Cipro/Flagyl - Protonix - Zofran -Montior LFT in the AM -Trial PO reglan Diabetes mellitusIDDM -reports trulicity-holding -Accu-Chek with sliding scale insulin -A1c 8.0 Hypertension Pulmonary embolus Hypercholesterolemia - Continue home medications as appropriate DVT PPx Lovenox Full code Discharge Plan: Home Plan to discharge in: 2 days Time Spent Managing Pts Care (In Minutes): 38 <Moises Sharma - Last Filed: 03/11/25 11:44> I have personally seen and evaluated the patient. I have reviewed the history, physical exam findings, and assessment provided by Zachary De Leon CUSTOMER RETENTION SPECIALIST. I agree with the plan of care as documented <Aleksandar Mg - Last Filed: 03/11/25 15:31>
[2025-03-11] MEDS: METOCLOPRAMIDE 5 MG TAB PO SCH (12:51)
[2025-03-11] MEDS: ONDANSETRON 4 MG (ODT) TAB PO PRN (14:58)
[2025-03-11] MEDS: HYDROCODONE/APAP 7.5/325 MG TAB PO PRN (16:14)
[2025-03-11] MEDS: AMOX/K CLAV 875 MG TAB PO SCH (20:26)
[2025-03-11] MEDS: PANTOPRAZOLE 40MG TABLET PO SCH (20:41)
[2025-03-12 05:29] LABS: Absolute Lymphocytes (CBC) 3.1 K/uL (0.7-4.9); Hematocrit 34.2 % (36.0-45.0); Hemoglobin 11.0 g/dL (12.0-15.0); MCH 27.5 pg (27.0-35.0); MCHC 32.1 g/dL (32.0-36.0); MCV 85.9 fL (80-100); MPV 9.4 fL (7.6-11.3); Nucleated RBC Absolute Count 0.0 (0-0); Nucleated Red Blood Cells % 0.0 % (0-0); RBC Red Blood Cell Count 3.98 M/uL (3.86-4.86); White Blood Count 11.20 thou/uL (4.3-10.9)
[2025-03-12 05:42] LABS: ALT/SGPT 62.0 U/L (13-56); AST/SGOT 55.0 U/L (15-37); Alkaline Phosphatase 124.0 U/L (45-117); Anion Gap 9.4 mEq/L (5.0-15.0); BUN Blood Urea Nitrogen 30.0 mg/dL (7-18); Glucose Level 192.0 mg/dL (74-106); Potassium 3.4 mEq/L (3.5-5.1)
[2025-03-12 05:43] LABS: Albumin 2.7 g/dL (3.4-5.0); Albumin/Globulin Ratio 0.7 (1.1-1.8); Globulin 3.9 g/dL (2.3-3.5); Magnesium 1.9 mg/dL (1.6-2.4)
[2025-03-12] MEDS: PHENOL 1.4% ORAL SPRAY 180ML MM PRN (08:18)
[2025-03-12] MEDS: POTASSIUM CL SA 10 MEQ TAB PO ONE (08:20)
[2025-03-12] MEDS: NA CHLORIDE 0.9% 1,000 ML IV ONE (08:20)
--- NOTE | 2025-03-12 08:55 | P.PN ---
Date of Service: 03/12/25 Subjective Nausea/vomiting improved Renal function slightly worse overnight Complains of sore throat ROS 10 point ROS as noted above, otherwise negative Physical Exam General: Alert, Oriented x3, HEENT: Atraumatic, Normocephalic Respiratory: Clear BBS, Normal air movement Cardiovascular: Normal pulses, Regular rate and rhythm Gastrointestinal: Normal bowel sounds, Hypoactive Musculoskeletal: No clubbing Integumentary: No rashes Neurological: Normal speech, Normal tone Vitals Reviewed Problem list Intractable nausea vomiting secondary to acute cholecystitis s/p laparoscopic cholecystectomy and extensive lysis of adhesion Acute kidney injury Diabetes mellitusIDDM Hypertension Pulmonary embolus Hypercholesterolemia Plan Intractable nausea vomiting secondary to acute cholecystitis s/p laparoscopic cholecystectomy and extensive lysis of adhesion -S/p lap cholecystectomy -Continue Augmentin - Protonix - Zofran -LFTs improving today Acute kidney injury Will bolus 1 L IV fluids now, continue IV fluids Went without IV meds the day yesterday due to difficulty obtaining access Repeat chemistry this afternoon Diabetes mellitusIDDM -reports trulicity-holding -Accu-Chek with sliding scale insulin -A1c 8.0 Hypertension Pulmonary embolus Hypercholesterolemia - Continue home medications as appropriate DVT PPx Lovenox Full code Discharge Plan: Home Plan to discharge in: 2 days Time Spent Managing Pts Care (In Minutes): 38 <Moises Sharma - Last Filed: 03/12/25 08:53> I have personally seen and evaluated the patient. I have reviewed the history, physical exam findings, and assessment provided by Moises Sharma PRINT PRODUCER. I agree with the plan of care as documented <Aleksandar Mg - Last Filed: 03/12/25 15:54>
--- NOTE | 2025-03-12 11:30 | PN ---
Date of Progress Note: 03/12/2025 Subjective: The patient is awake, alert. Complaining of soreness. Objective: Vital Signs: Stable. She is afebrile. Abdomen: Benign. Laboratory Data: Her white count is 11.2. There is no left shift. Chemistry reviewed. Her LFTs ross ve improved slightly, almost normalized. Assessment: Status post lap choly and lysis of adhesions. Recommendations: The patient cleared from surgical standpoint for discharge. Follow up in my office in a week. Discharge instructions given. Antibiotics and pain management per the hospitalist team. /MODL Voice ID: [id number] Report ID: [id number]
[2025-03-12 13:46] LABS: Anion Gap 12.0 mEq/L (5.0-15.0); BUN Blood Urea Nitrogen 27.0 mg/dL (7-18); Glucose Level 198.0 mg/dL (74-106); Potassium 4.0 mEq/L (3.5-5.1)
[2025-03-12] MEDS: Ringers Lactate 1,000 ML IV SCH (16:38)
[2025-03-12] MEDS: DOCUSATE NA 100 MG CAP PO ONE ×2 (16:52→21:00)
[2025-03-12] MEDS: SODIUM CHLORIDE 0.9% 10ML INJ IV PRN (21:01)
[2025-03-12 23:35] VITALS: O2SAT 97
[2025-03-13 05:02] LABS: Absolute Lymphocytes (CBC) 2.3 K/uL (0.7-4.9); Hematocrit 32.1 % (36.0-45.0); Hemoglobin 10.5 g/dL (12.0-15.0); MCH 28.0 pg (27.0-35.0); MCHC 32.7 g/dL (32.0-36.0); MCV 85.7 fL (80-100); MPV 9.0 fL (7.6-11.3); Nucleated RBC Absolute Count 0.0 (0-0); Nucleated Red Blood Cells % 0.2 % (0-0); RBC Red Blood Cell Count 3.74 M/uL (3.86-4.86); White Blood Count 9.50 thou/uL (4.3-10.9)
[2025-03-13 05:21] LABS: ALT/SGPT 49.0 U/L (13-56); AST/SGOT 34.0 U/L (15-37); Albumin 2.6 g/dL (3.4-5.0); Albumin/Globulin Ratio 0.8 (1.1-1.8); Alkaline Phosphatase 112.0 U/L (45-117); Anion Gap 7.7 mEq/L (5.0-15.0); BUN Blood Urea Nitrogen 20.0 mg/dL (7-18); Globulin 3.3 g/dL (2.3-3.5); Glucose Level 179.0 mg/dL (74-106); Magnesium 1.8 mg/dL (1.6-2.4); Potassium 3.7 mEq/L (3.5-5.1)
[2025-03-13] MEDS: MAGNESIUM SULFATE 1 gm IVPB 1 GM/100 ML BAG IV ONE (06:00)
[2025-03-13 09:13] VITALS: BP 127/59; TEMP 98.1
[2025-03-13] MEDS: POTASSIUM CL SA 10 MEQ TAB PO ONE (09:49)
--- NOTE | 2025-03-13 10:56 | P.DS ---
Admission Date: 03/09/25 Discharge Date: 03/13/25 Disposition: ROUTINE DISCHARGE Discharge Condition: GOOD Reason for Admission: intractable N/V Brief History of Present Illness: Ning Kirk is a 59 year old female with pmhx diabetes mellitusIDDM, hypertension, pulmonary embolus, hypercholesterolemia who presents to the ED with intractable nausea and vomiting since yesterday in the morning. She reports that Trulicity causing this nausea and vomiting and has occurred in the past. Laboratory evaluation significant for left shift neutrophils 74.1, BUN/creatinine 12/1.22, GFR 50, serum glucose 187, alk phos 185, BNP 202. Chest x-ray report "The lungs appear clear of acute infiltrate. No significant pleural effusion noted. The heart is mildly enlarged.. IMPRESSION: No acute abnormality is displayed." CT abdomen pelvis with contrast report "Stable 5.2 cm cystic mass left adnexa without significant free fluid. Cholelithiasis without evidence cholecystitis" Ning will be admitted to hospitalist service for further evaluation and treatment of intractable nausea vomiting. Hospital Course: Physical Exam General: Alert, Oriented x3, HEENT: Atraumatic, Normocephalic Respiratory: Clear BBS, Normal air movement Cardiovascular: Normal pulses, Regular rate and rhythm Gastrointestinal: Normal bowel sounds, Hypoactive Musculoskeletal: No clubbing Integumentary: No rashes Neurological: Normal speech, Normal tone Vitals Reviewed Problem list Intractable nausea vomiting secondary to acute cholecystitis s/p laparoscopic cholecystectomy and extensive lysis of adhesion Acute kidney injury Diabetes mellitusIDDM Hypertension Pulmonary embolus Hypercholesterolemia Plan Intractable nausea vomiting secondary to acute cholecystitis s/p laparoscopic cholecystectomy and extensive lysis of adhesion -S/p lap cholecystectomy -Continue Augmentin at home -Discharge with Zofran and [place] -LFTs improving Acute kidney injury Resolved Will bolus 1 L IV fluids now, continue IV fluids Went without IV meds the day yesterday due to difficulty obtaining access Repeat chemistry this afternoon Diabetes mellitusIDDM -reports trulicity-holding -Accu-Chek with sliding scale insulin -A1c 8.0 Hypertension Pulmonary embolus Hypercholesterolemia - Continue home medications as appropriate DVT PPx Lovenox Full code Discharge Plan: Home Plan to discharge in: Today Time spent on the encounter, including patient evaluation, history taking, physical exam, medical decision making, coordination of care, and documentation, was 35 minutes. Time includes direct [id number] interaction with the patient and indirect time spent reviewing records, ordering tests, and discussing the care plan. Vital Signs/Physical Exam: Temp Pulse Resp BP Pulse Ox 98.1 F 80 20 127/59 L 97 03/13/25 08:00 03/13/25 08:00 03/13/25 08:00 03/13/25 08:00 03/13/25 08:00 Laboratory Data at Discharge: WBC 9.50 thou/uL (4.3-10.9) 03/13/25 04:50 Hgb 10.5 g/dL (12.0-15.0) L 03/13/25 04:50 Hct 32.1 % (36.0-45.0) L 03/13/25 04:50 Plt Count 194 thou/uL (152-406) 03/13/25 04:50 PT 14.1 SECONDS (10-13.0) H 03/08/25 07:55 INR 1.26 03/08/25 07:55 Sodium 138 mEq/L (136-145) 03/13/25 04:50 Potassium 3.7 mEq/L (3.5-5.1) 03/13/25 04:50 BUN 20 mg/dL (7-18) H 03/13/25 04:50 Creatinine 1.09 mg/dL (0.55-1.02) H 03/13/25 04:50 Glucose 179 mg/dL (74-106) H 03/13/25 04:50 Phosphorus 2.7 mg/dL (2.5-4.9) 03/13/25 04:50 Magnesium 1.8 mg/dL (1.6-2.4) 03/13/25 04:50 Total Bilirubin 0.3 mg/dL (0.2-1.0) 03/13/25 04:50 AST 34 U/L (15-37) 03/13/25 04:50 ALT 49 U/L (13-56) 03/13/25 04:50 Alkaline Phosphatase 112 U/L (45-117) 03/13/25 04:50 Triglycerides 112 mg/dL (<150) 03/09/25 04:24 Cholesterol 302 mg/dL (<200) H 03/09/25 04:24 HDL Cholesterol 66 mg/dL (40-60) H 03/09/25 04:24 Cholesterol/HDL Ratio 4.58 03/09/25 04:24 Lipase 47 U/L (13-75) 03/08/25 07:55 Home Medications: Atorvastatin Calcium [Lipitor] 40 mg PO BEDTIME #30 tab 05/12/20 Cetirizine HCl [Zyrtec*] 10 mg PO DAILY 03/09/25 Dulaglutide [Trulicity] 1.5 mg SQ SEECOM 03/09/25 Insulin Aspart Prot/Insuln Asp [Novolog Mix 70-30 Flexpen] See Rx Instructions .ROUTE .COMPLEX 03/09/25 Losartan Potassium [Cozaar*] 1 tab PO DAILY 03/09/25 hydroCHLOROthiazide [Hydrochlorothiazide*] 1 tab PO DAILY 03/09/25 Amox/Clavulanate [Augmentin 875-125 Tab*] 875 mg PO BID 6 Days #12 tab 03/13/25 Hydrocodone 7.5/APAP 325 [[place] 7.5/325 mg*] 1 tab PO Q8H PRN 5 Days #15 tab 03/13/25 Ondansetron [Zofran] 4 mg PO Q6H PRN 7 Days #28 tab 03/13/25 New Medications: Amox/Clavulanate [Augmentin 875-125 Tab*] 875 mg PO BID 6 Days #12 tab Hydrocodone 7.5/APAP 325 [[place] 7.5/325 mg*] 1 tab PO Q8H PRN 5 Days #15 tab PRN Reason: Pain Scale 5-7 (Moderate) Ondansetron [Zofran] 4 mg PO Q6H PRN 7 Days #28 tab PRN Reason: Nausea / Vomiting Physician Discharge Instructions: May shower Remove outer dressing in a.m. Keep Steri-Strips on at all times Resume home meds and diet Activity as tolerated, no heavy lifting or strenuous exercise Incentive spirometry as instructed Abdominal binder as instructed Antibiotics and pain medicine per the hospitalist team Follow-up in office 1 week, call for appointment Diet: Low sodium Activity: No lifting more than 10 lbs Followup: Apollo Nash MD [ACTIVE - CAN ADMIT] - 1 Week Cherelle Valdes FNP [Primary Care Provider] - If your Condition Changes
--- NOTE | 2025-03-13 11:15 | PN ---
Date of Progress Note: 03/13/2025 Subjective: The patient is awake, alert, tolerating diet, ambulating somewhat. Objective: Vital Signs: Stable, afebrile. Abdomen: Benign. Laboratory Data: Reviewed. White count is normal. Chemistry also reviewed. Her kidney functions h ave improved. Assessment: Status post laparoscopic cholecystectomy and lysis of adhesions. Recommendation: The patient is cleared for discharge from surgery standpoint. Discharge instruction given. The patient is to follow up with me in 1 week and antibiotics and pain medicine per the Hosp italist Team. /MODL Voice ID: [id number] Report ID: [id number]
== END 2025-03-13 13:17 | disposition home or self-care (01) | DRG 418 ==
LOC: ER 07:10 → ERHOLD 13:00 → 2ND 13:50 → OBSVTOIN 03-09 15:06
PROVIDERS: ADMIT Internal Medicine; ATTEND Family Medicine
PROC: 0FT44ZZ Resection of Gallbladder, Percutaneous Endoscopic Approach (ICD-10-PCS; principal; 2025-03-10 08:00)
DX: K80.12 Calculus of gallbladder with acute and chronic cholecystitis without obstruction (principal); N17.9 Acute kidney failure, unspecified; Z68.42 Body mass index [BMI] 45.0-49.9, adult; E66.9 Obesity, unspecified; I10 Essential (primary) hypertension; E78.00 Pure hypercholesterolemia, unspecified; E11.65 Type 2 diabetes mellitus with hyperglycemia; Z88.5 Allergy status to narcotic agent; Z79.4 Long term (current) use of insulin; Z79.52 Long term (current) use of systemic steroids; Z86.16 Personal history of COVID-19; Z86.711 Personal history of pulmonary embolism; Z79.899 Other long term (current) drug therapy
CPT/HCPCS: 36415; 71045; 74018; 74177; 78227; 80048; 80053; 80061; 80076; 80307; 81001; 82947; 83036; 83605; 83690; 83735; 83880; 84100; 84439; 84443; 84484; 85025; 85610; 88304; 93005; 94010; 96372; 99285; A9537; G0378; J0330; J0360; J0744; J1100; J1171; J1644; J1650; J1790; J2003; J2250; J2405; J2470; J2543; J2550; J2704; J2710; J2765; J2805; J3010; J3475; J7030; J7120; Q0162; Q9967